=== PATIENT | male | born 1935 | race Native Hawaiian/Other Pacific Islander ===

== ENCOUNTER 2020-02-07 16:07 | Emergency (ER) | payer MEDICARE, OTHER, SELFPAY ==
--- NOTE | ~2020-02-07 | XR_ITS ---
XR hip RT 2V w AP pelvis 02/07/2020 17:22 Indication: Right hip pain radiating to the leg. Procedure: AP pelvis and 2 views right hip Comparison: Comparison to multiple prior studies sequentially, with oldest reviewed study dated 09/23 Findings: there is moderate-severe lower lumbar spondylosis with levoscoliosis. Pelvic rings are inta ct. There is a right hip arthroplasty with prosthesis well seated, position unchanged from prior stud ies. There is deformity of the proximal aspect of the right femur with trabecular thickening, unchang ed. There is extensive atherosclerosis. No acute fracture or traumatic malalignment.. There is mild o steoarthritis of the left hip. Pelvic rings are intact. Sacral foramen are symmetric. Impression: 1: No acute abnormality of the pelvis or right hip. 2: Moderate-severe lower lumbar spondylosis. 3: Stable appearance to right hip arthroplasty with trabecular thickening proximal aspect of the rig ht femur with periosteal reaction. Consider Paget's disease of the right femur. Reviewed, dictated and finalized at location A. Impression: 1: No acute abnormality of the pelvis or right hip. 2: Moderate-severe lower lumbar spondylosis. 3: Stable appearance to right hip arthroplasty with trabecular thickening prox imal aspect of the right femur with periosteal reaction. Consider Paget's disea se of the right femur.
[2020-02-07 16:17] VITALS: BP 150/82; PULSE 77; RESP 20; TEMP 36.9; O2SAT 100
[2020-02-07 16:24] VITALS: BP 150/82; PULSE 77; RESP 20; TEMP 36.9; O2SAT 100
--- NOTE | 2020-02-07 16:54 | ED.LOWEXIN ---
HPI - Extremity Injury (Lower) General Chief Complaint: Extremity Injury, Lower Stated Complaint: BACK/GROIN PAIN Time Seen by Provider: 02/07/20 16:45 History of Present Illness HPI Narrative: He has had severe pain of the right hip since this morning. The pain radiates into the lower back and flank. No thing makes the pain better or worse. He has chronic pain of the right hip, this is similar but worse. s/p right hip replacement. He has paget's diseaes of the right femur Related Data Allergies Allergy/AdvReac Type Severity Reaction Status Date / Time alendronate sodium Allergy Unknown Other Verified 02/10/20 09:54 sulfamethoxazole AdvReac Intermediate Itching Verified 02/10/20 09:54 [From Bactrim] trimethoprim [From Bactrim] AdvReac Intermediate Itching Verified 02/10/20 09:54 Review of Systems Review of Systems: All systems reviewed & are unremarkable except as noted in HPI and below Constitutional: Constitutional: Denies fever(s) Genitourinary: Genitourinary: Denies hematuria and Denies dysuria Musculoskeletal: Musculoskeletal: Reports back pain PMFSH Past Medical History Medical History Acute cystitis without hematuria Anxiety Arthritis Depression Dizziness Hearing loss HLD (hyperlipidemia) HTN (hypertension) Left hip pain JARED (obstructive sleep apnea) Rash Skin lesion Trochanteric bursitis, left hip Vision loss Surgical History Surgical History Status post carpal tunnel release Status post cataract extraction Status post right hip replacement Family History Family History Mother Family history of cardiovascular disease Sibling Family history of Parkinson's disease Family history of coronary artery disease Family history of malignant neoplasm of kidney Other Family history of arthritis Family history of malignant neoplasm Hypertension Social History Social History Social History: Smoking status: Former smoker Tobacco type: cigarettes Second hand tobacco smoke exposure: No Smoking end date: 06/16/1953 Alcohol intake: never Substance use: never Substance use type: does not use Gender identity (if verbalized by the patient): Male Exam Const: General: alert Nutritional Appearance: well nourished Orientation/consciousness: patient oriented x3 Other: obviously uncomfortable HENMT: Head: normal to inspection Resp: Effort & Inspection: normal respiratory effort Auscultation: clear to auscultation bilaterally Cardio: Rate: regular rate Rhythm: regular rhythm GI: GI Palp: Yes Soft to palpation and No Tenderness to palpation present (GI) : General: Yes no CVA tenderness Skin: General skin exam: normal color Neuro: General: patient oriented x3, moves all extremities and CN's II-XI intact bilaterally Speech: normal speech Extrem: Other: abnormal protrusion of right hip. Right quadriceps spasm Course Vital Signs Vital signs: Vital Signs Temperature 36.9 C 02/07/20 16:17 Pulse Rate 77 02/07/20 16:17 Respiratory Rate 20 02/07/20 16:17 Blood Pressure 150/82 H 02/07/20 16:17 Pulse Oximetry 100 02/07/20 16:17 Temperature 36.9 C 02/07/20 16:24 Pulse Rate 70 02/07/20 19:08 Respiratory Rate 15 02/07/20 19:08 Blood Pressure 180/87 H 02/07/20 19:08 Pulse Oximetry 97 02/07/20 19:08 MDM - Extremity Injury (Lower) MDM Narrative Medical decision making narrative: Pain improved with valium. Increase from his chronic pain is likely due to spasm. No acute injury. Medical Records Attestation: I reviewed the patient's medical records. Lab Data Labs: Lab Results 02/07/20 Range/Units 17:46 Urine Color Yellow (Yellow) Urine Appearance Clear (Clear) Urine pH 7.0 (5.0-9.0) U
[2020-02-07 18:29] LABS: Add Urine Microscopic? YES; Appearance Urine Clear (Clear); Bacteria Urine Trace /hpf; Bilirubin Urine Negative (Negative); Blood Urine Negative (Negative); Color Urine Yellow (Yellow); Glucose Urine UA Negative (Negative); Ketones Urine Negative (Negative); Leukocyte Esterase Ur 2+ LEU/UL (Negative); Mucus Urine Rare /lpf; Nitrate Urine Positive (Negative); Protein Urine Negative (Negative); Squamous Epithelial Cell Urine Rare /hpf (Few); Urobilinogen Urine Negative mg/dL (<2.0)
[2020-02-07] MEDS: CIPROFLOXACIN 500 MG TAB PO (19:05)
[2020-02-07 19:08] VITALS: BP 180/87; PULSE 70; RESP 15; O2SAT 97
== END 2020-02-07 19:13 | disposition home or self-care (01) ==
PROVIDERS: Emergency Provider Emergency Medicine; PCP Family Medicine
DX: M25.551 Pain in right hip (principal); N39.0 Urinary tract infection, site not specified; M19.90 Unspecified osteoarthritis, unspecified site; E78.5 Hyperlipidemia, unspecified; G47.33 Obstructive sleep apnea (adult) (pediatric); I10 Essential (primary) hypertension; F41.9 Anxiety disorder, unspecified; Z98.49 Cataract extraction status, unspecified eye; Z96.641 Presence of right artificial hip joint; Z87.891 Personal history of nicotine dependence; Z79.82 Long term (current) use of aspirin; M47.816 Spondylosis without myelopathy or radiculopathy, lumbar region
CPT/HCPCS: 73502; 81001; 96372; 99283; A9270; J3360

== ENCOUNTER 2020-05-15 16:55 | Outpatient (CLI) | payer MEDICARE, OTHER, SELFPAY ==
[2020-05-15 18:56] LABS: Erythrocyte Sedimentation Rate 13 mm/hr (0-20)
== END 2020-05-15 16:56 | disposition home or self-care (01) ==
LOC: ANHLAB 16:57
PROVIDERS: PCP Family Medicine; Visit Provider Family Medicine
DX: M79.10 Myalgia, unspecified site (principal)
CPT/HCPCS: 36415; 85652

== ENCOUNTER → 2020-06-19 15:16 | Outpatient (CLI) | payer MEDICARE, OTHER, SELFPAY ==
--- NOTE | ~2020-06-19 | MR_ITS ---
EXAMINATION: MR lumbar spine wo con EXAM DATE: 06/19/2020 16:29 INDICATION: M54.16 - Radiculopathy, lumbar region radiculopathy . TECHNIQUE: Multi-sequential, multiplanar MR images of the lumbar spine were obtained without contrast . Sagittal T1, T2, T2 fat saturation images. Axial T2 weighted images. There is no prior study for comparison. FINDINGS: Mild to moderate lumbar levoscoliosis. There is moderate chronic compression fracture of L1 . Mild to moderate diffuse loss of L2-L4 vertebral body heights and mild at L5. These are most likely chronic, no significant edema in these levels. The conus medullaris terminates at the L1/2 level and has normal signal intensity and morphology. There is 3 mm retrolisthesis L2 on L3. Moderate to fermin re disc disease at all lumbar levels. Several small vertebral body hemangiomas. Level by level evaluation: T12-L1: There is a mild diffuse disc bulge. Facet arthropathy: Mild. Neural foraminal stenosis: No stenosis. Central canal stenosis: No stenosis. L1-L2: There is a moderate diffuse disc bulge. Facet arthropathy: Mild to moderate. Neural foraminal stenosis: Moderate left, mild to moderate right. Central canal stenosis: Mild to moderate. L2-L3: There is a moderate to large diffuse disc bulge. Facet arthropathy: Moderate to severe. Neural foraminal stenosis: Moderate to severe right, moderate left. Central canal stenosis: Moderate to severe. L3-L4: There is a moderate diffuse disc bulge. Facet arthropathy: Moderate . Ligamentum flavum enlargement. Neural foraminal stenosis: Moderate bilateral. Central canal stenosis: Moderate. L4-L5: There is a moderate to large diffuse disc bulge. Facet arthropathy: Severe . Ligamentum flavum enlargement. Neural foraminal stenosis: Moderate to severe right, moderate left. Central canal stenosis: Moderate to severe. L5-S1: There is a mild to moderate diffuse disc bulge, right central protrusion Facet arthropathy: Mild to moderate. Neural foraminal stenosis: Moderate to severe left, mild to moderate right. Central canal stenosis: Moderate to severe, mass effect on traversing right S1 nerve root. IMPRESSION: 1. Advanced lumbar spondylosis. 2. Mild to moderate levoscoliosis. 3. Chronic compression fractures. Reviewed, dictated and finalized at location A. C THERAPY TEACHER
== END ==
PROVIDERS: PCP Family Medicine; Visit Provider Family Medicine
DX: M47.26 Other spondylosis with radiculopathy, lumbar region (principal)
CPT/HCPCS: 72148

== ENCOUNTER 2020-12-12 08:48 | Outpatient (CLI) | payer MEDICARE, OTHER, SELFPAY ==
--- NOTE | ~2020-12-12 | XR_ITS ---
EXAMINATION: XR lg joint inject/asp w image DATE: 12/12/2020 10:13 INDICATION: Left hip arthritis with chronic pain TECHNIQUE: A time-out was performed to verify the patient's name, date of , and procedure to b e performed. The procedure including the risks, benefits, and alternatives was discussed with the pat ient. Risks discussed included bleeding and infection. The patient understood the risks and agreed to proceed. The skin overlying the left hip joint was prepped and draped in usual sterile fashion. An esthetic was administered with 1% lidocaine subcutaneously. A 22 G needle was advanced under fluoros copic guidance into the joint. Injection of 1 mL of Omnipaque 240 confirmed intra-articular position of the needle. Subsequently, injectate consisting of 3 mL of a 2:1 mixture of 0.5% bupivacaine: 80 mg/mL Depo-Medrol for a total dose of 80 mg Depo-Medrol was instilled. Washout of contrast was seen c onfirming intra-articular administration. The needle was removed and the entry site was cleaned and d ressed. There were no immediate complications. Fluoroscopy exposure time was 0.1 minutes. The total number of images was 3. Total DAP was 0.938 mGycm^2 FINDINGS: Real-time fluoroscopy demonstrates the needle in the left hip joint. There is severe left h ip osteoarthritis. Patient's pain prior to procedure:07/26. Patient's pain following the procedure: . IMPRESSION: 1. Left hip joint injection of local anesthetic and steroid with no change in the patient's mild pres enting pain. Reviewed, dictated and finalized at location A. IMPRESSION: 1. Left hip joint injection of local anesthetic and steroid with no change in t he patient's mild presenting pain.
== END 2020-12-12 08:49 | disposition home or self-care (01) ==
LOC: ANHIMG 09:00
PROVIDERS: PCP Family Medicine; Visit Provider Nurse Practitioner Family
DX: M16.12 Unilateral primary osteoarthritis, left hip (principal)
CPT/HCPCS: 20610; 77002; J1040; Q9966

== ENCOUNTER 2021-01-26 11:34 | Outpatient (CLI) | payer MEDICARE, OTHER, SELFPAY ==
--- NOTE | ~2021-01-26 | XR_ITS ---
EXAMINATION: XR knee LT 3V DATE: 01/26/2021 11:56 INDICATION: Osteitis deformans of unspecified bone. Left knee joint clicking. TECHNIQUE: 3 views of left knee were obtained. COMPARISON: None. FINDINGS: Bone alignment is normal. No fracture. There is mild tricompartment osteoarthritis characte rized by tiny marginal osteophytes. No knee joint effusion. IMPRESSION: 1. Mild left knee osteoarthritis. Reviewed, dictated and finalized at location A.
== END 2021-01-26 11:35 | disposition home or self-care (01) ==
LOC: ANHIMG 11:41
PROVIDERS: PCP Family Medicine; Visit Provider Physician Assistant
DX: M88.9 Osteitis deformans of unspecified bone (principal); M23.8X9 Other internal derangements of unspecified knee; M17.12 Unilateral primary osteoarthritis, left knee
CPT/HCPCS: 73562

== ENCOUNTER 2021-05-17 09:01 | Emergency (ER) | payer MEDICARE, OTHER, SELFPAY ==
--- NOTE | ~2021-05-17 | XR_ITS ---
EXAMINATION: XR finger 1st RT min 2V EXAM DATE: 05/17/2021 09:30 INDICATION: Caught distal end rt 1st finger in car door yesterday. TECHNIQUE: Right thumb frontal, lateral and oblique projections obtained and reviewed. There is no prior study for comparison. FINDINGS: There is moderate right 1st interphalangeal primary osteoarthritis. There are no acute frac tures or dislocations identified. There is no subcutaneous gas. The soft tissue is unremarkable. There are 2 punctate foreign bodies which could be on the skin or in the tissues of the phalanx IMPRESSION: No acute osseous findings. Reviewed, dictated and finalized at location A. HANDISING DIRECTOR IMPRESSION: No acute osseous findings.
[2021-05-17 09:18] VITALS: BP 143/97; PULSE 68; RESP 16; TEMP 36.3; O2SAT 97
--- NOTE | 2021-05-17 09:27 | ED.UPPEXIN ---
HPI - Extremity Injury (Upper) General Chief Complaint: Wound/Laceration Stated Complaint: Thumb Nail Time Seen by Provider: 05/17/21 09:28 Source: patient, family, RN notes reviewed and old records reviewed Mode of arrival: ambulatory Limitations: no limitations History of Present Illness HPI narrative: 85-year-old male presents to the [facility] with complaints of smashing his right thumb in the car door last night. Has been icing and took Tylenol. States he has been soaking it also and peroxide. Has a history of osteoporosis, high blood pressure, high cholesterol, depression and anxiety along with acid reflux. Has sensation at the tip. Bruising noted to the nail. Related Data Allergies Allergy/AdvReac Type Severity Reaction Status Date / Time alendronate sodium Allergy Unknown Other Verified 05/17/21 14:39 sulfamethoxazole AdvReac Intermediate Itching Verified 05/17/21 14:39 [From Bactrim] trimethoprim [From Bactrim] AdvReac Intermediate Itching Verified 05/17/21 14:39 Review of Systems Review of Systems: All systems reviewed & are unremarkable except as noted in HPI and below Constitutional: Constitutional: Reports no additional constitutional complaints, Denies chills and Denies fever(s) Eyes: Eyes: Reports no additional eye complaints ENT: Reports system reviewed and no additional complaints, except as documented Cardiovascular: Cardiovascular: Reports no additional cardiovascular complaints Respiratory: Respiratory: Reports no additional respiratory complaints Musculoskeletal: Musculoskeletal: Reports no additional musculoskeletal complaints, Denies arthralgias and Denies joint swelling Integumentary/Breasts: Skin/Breast: Reports as per HPI and Denies rash Comments: Bruising under right thumbnail Neurologic: Reports system reviewed and no additional complaints, except as documented Psychiatric: Psychiatric: Reports no additional psychiatric complaints Allergic/Immunologic: Allergic/Immunologic: Reports no additional allergic/immunologic complaints PMFSH Past Medical History Medical History Acute cystitis without hematuria Anxiety Arthritis Degenerative joint disease (DJD) of hip Depression Dizziness DJD (degenerative joint disease), lumbar Hearing loss HLD (hyperlipidemia) HTN (hypertension) Left hip pain Left knee DJD Lumbar radiculopathy, chronic JARED (obstructive sleep apnea) Paget disease of bone Rash Skin lesion Trochanteric bursitis, left hip Vision loss Surgical History Surgical History Status post carpal tunnel release Status post cataract extraction Status post right hip replacement Family History Family History Mother Family history of cardiovascular disease Sibling Family history of Parkinson's disease Family history of coronary artery disease Family history of malignant neoplasm of kidney Other Family history of arthritis Family history of malignant neoplasm Hypertension Social History Social History Social History: Tobacco type: cigarettes Second hand tobacco smoke exposure: No Smoking end date: 06/16/1953 Alcohol intake: never Substance use: never Substance use type: does not use Gender identity (if verbalized by the patient): Male Sexual Orientation (if Verbalized by the Patient): Straight or Heterosexual Comments At the time of my signature, I reviewed and agree with the nursing past medical, surgical, social, and family history. There is no relevant family history pertinent to the patient complaint. Exam Const: General: healthy appearing, no acute distress and alert Nutritional Appearance: well nourished Orientation/consciousness: patient oriented x3 Limitations: no limitations HENMT: Head: normal to inspection Eyes: Pupils: Equ
== END 2021-05-17 10:09 | disposition home or self-care (01) ==
PROVIDERS: Emergency Provider Nurse Practitioner; PCP Family Medicine
DX: S60.111A Contusion of right thumb with damage to nail, initial encounter (principal); I10 Essential (primary) hypertension; E78.5 Hyperlipidemia, unspecified; Z87.891 Personal history of nicotine dependence; W23.0XXA Caught, crushed, jammed, or pinched between moving objects, initial encounter
CPT/HCPCS: 11740; 73140; 99213; G0463

== ENCOUNTER 2021-11-09 11:36 | Emergency (ER) | payer MEDICARE, OTHER, SELFPAY ==
[2021-11-09 11:50] VITALS: BP 183/89; PULSE 64; RESP 16; TEMP 36.9; O2SAT 100
[2021-11-09] MEDS: TETANUS,DIPHTHERIA,AC PERTUSSIS ADULT (0.5 ML) BOOSTRIX IM (12:20)
--- NOTE | 2021-11-09 12:32 | PC.NURSE ---
manager urgent care in to do sutures.
--- NOTE | 2021-11-09 12:42 | ED.WOUNDLAC ---
HPI - Wound/Laceration General Chief Complaint: Wound/Laceration Stated Complaint: cut right elbow Time Seen by Provider: 11/09/21 12:00 Source: patient Mode of arrival: ambulatory Limitations: no limitations History of Present Illness HPI narrative: 86-year-old male presents with with complaint of laceration to right elbow. States that he was sitting on a stool cleaning his garage and he dropped something. Bent over to pick it up and he fell off the stool. Hit right elbow on leg of table saw. Arrived with towel wrapped around right elbow. Moderate amount of bleeding noted. Range of motion and distal neurovascularly intact to right upper extremity. Denies hitting head. No LOC. All systems reviewed and negative except as noted above. Related Data Allergies Allergy/AdvReac Type Severity Reaction Status Date / Time alendronate sodium Allergy Unknown Other Verified 08/03/21 10:42 sulfamethoxazole AdvReac Intermediate Itching Verified 08/03/21 10:42 [From Bactrim] trimethoprim [From Bactrim] AdvReac Intermediate Itching Verified 08/03/21 10:42 Review of Systems Review of Systems: CONSTITUTIONAL: Denies fever, chills, or sweats. EYES: Denies visual changes, redness, or discharge. ENT: Denies rhinorrhea, congestion, sore throat, or otalgia. CARDIOVASCULAR: Denies chest pain, palpitations, or edema. RESPIRATORY: Denies cough or dyspnea. GASTROINTESTINAL: Denies abdominal pain, nausea, vomiting, or diarrhea. GENITOURINARY: Denies dysuria or hematuria. SKIN: Denies rash or itching. Reports laceration right elbow. MUSCULOSKELETAL: Denies back pain, joint pain, or myalgia. NEUROLOGIC: Denies headache, numbness, or weakness. PSYCHIATRIC: Denies anxiety or depression. All other systems reviewed are negative, except as documented in HPI. [facility] Past Medical History Medical History Acute cystitis without hematuria Anxiety Arthritis Degenerative joint disease (DJD) of hip Depression Dizziness DJD (degenerative joint disease), lumbar Hearing loss HLD (hyperlipidemia) HTN (hypertension) Left hip pain Left knee DJD Lumbar radiculopathy, chronic JARED (obstructive sleep apnea) Paget disease of bone Rash Skin lesion Trochanteric bursitis, left hip Vision loss Surgical History Surgical History Status post carpal tunnel release Status post cataract extraction Status post right hip replacement Family History Family History Mother Family history of cardiovascular disease Sibling Family history of Parkinson's disease Family history of coronary artery disease Family history of malignant neoplasm of kidney Other Family history of arthritis Family history of malignant neoplasm Hypertension Social History Social History Social History: Tobacco type: cigarettes Second hand tobacco smoke exposure: No Smoking end date: 06/16/1953 Alcohol intake: never Substance use: never Substance use type: does not use Gender identity (if verbalized by the patient): Male Sexual Orientation (if Verbalized by the Patient): Straight or Heterosexual Comments At time of signature, agree with nursing past medical, surgical, social and family history. There is no relevant family history pertinent to the presenting complaint. Exam Narrative: GENERAL: This is a well-nourished, well-developed patient, in no apparent distress. HEAD: normocephalic, atraumatic. EYES: PERRL. Sclera clear/white. Vision is grossly intact. EARS: External ears normal NOSE: External nose normal NECK: Neck supple, non-tender without lymphadenopathy, masses or thyromegaly. CARDIOVASCULAR: Regular rate and rhythm without murmurs, gallops, or rubs. RESPIRATORY: Clear to auscultation. Breath sounds equal bilaterally. No wheezes
== END 2021-11-09 12:47 | disposition home or self-care (01) ==
PROVIDERS: Emergency Provider Nurse Practitioner Family
DX: S51.011A Laceration without foreign body of right elbow, initial encounter (principal); T14.8XXA Other injury of unspecified body region, initial encounter; W27.0XXA Contact with workbench tool, initial encounter; E78.5 Hyperlipidemia, unspecified; I10 Essential (primary) hypertension; Z87.891 Personal history of nicotine dependence
CPT/HCPCS: 12002; 90471; 90715; 99212; G0463

== ENCOUNTER 2022-02-01 09:30 | Outpatient (CLI) | payer MEDICARE, OTHER, SELFPAY ==
--- NOTE | 2022-02-01 09:49 | ECG_ITS ---
Measurements Intervals [place] Rate: 65 P: 71 TN: 144 QRS: 48 QRSD: 90 T: 39 QT: 398 QTc: 414 Interpretive Statements BASELINE ARTIFACT/REDUCED DATA QUALITY SINUS RHYTHM GROSSLY NORMAL ECG NO PREVIOUS ECG AVAILABLE FOR COMPARISON Electronically Signed On 02-01-2022 12:04:02 CDT by Noé Villanueva M.D.
== END 2022-02-01 09:31 | disposition home or self-care (01) ==
LOC: ANHSURGERY 09:36
PROVIDERS: PCP Family Medicine; Visit Provider Urology
DX: Z01.818 Encounter for other preprocedural examination (principal); I10 Essential (primary) hypertension
CPT/HCPCS: 93005

== ENCOUNTER 2022-02-07 00:39 | Day surgery (SDC) | payer MEDICARE, OTHER, SELFPAY ==
--- NOTE | 2022-01-31 15:37 | PC.NURSE ---
Report to the Outpatient Waiting Room, entrance under the green pavilion located off [facility], at time __0815 on date __02/07/22 . OR Time: _101 . - You and your visitor will be asked to self-screen and do not enter if you have any COVID symptoms. - Only one visitor and NO children visitors are allowed at this time. - The patient visitor is requested to leave or wait in car when not with patient due to restrictions. - A mask is required within the hospital. Patients may have clear liquids (water, carbonated beverages, clear teas, apple juice) until 3 hours prior to surgery with a maximum of 20 ounces. - No food from midnight until time of surgery - Infants may have breast milk until 4 hours before surgery, formula 6 hours prior to surgery. - Children will be allowed to drink immediately following surgery. If applicable, please bring a bottle or sippy cup to assist with drinking. Juice, water, soda, and popsicles are readily available. For infants on formula, please bring formula the day of surgery. Pacifiers are allowed. Take the following medications with a SIP of water the morning of surgery: ___BUPROPION AND PAROXETINE Medications to discontinue per physician _PT STATES __ASPIRIN 7 DAYS PRE OP PER DR DURHAM_.ALL VITAMINS AND SUPPLEMENTS 3 DAYS PRE OP Date to take last dose__ASPIRINS 01/30/22 ___/ VITAMINS 02/03/22 Please no make-up, nail [place], hairspray, perfume, deodorant, or body powder the day of surgery. No jewelry (including any body piercings) or valuables the day of surgery, leave them at home. Please take a shower or bath the night before, or the morning of, surgery with an antibacterial soap. Wear comfortable, loose fitting clothing. Children are encouraged to wear pajamas. - Jewelry must be removed prior to entering the operating room. Rings and piercings that are not removed may be cut off. - The hospital will not accept responsibility for valuables. - Please leave all valuables, including medications, at home the day of surgery. If you are going home after surgery, a licensed show horse driver must drive you home. - NO public transportation without another adult. - We recommend that an adult stay with you for 24 hours following discharge. - We also recommend that you do not drive, make important decision, drink alcoholic beverages, or take any drugs that were not prescribed by your health care provider for at least 24 hours after your discharge time. For Pediatric surgeries, we recommend two adults accompany the child home (only one inside the building at this time). Follow any additional instructions given to you from your surgeon. If you or anyone in your household have experienced Covid symptoms in the past week, please notify your surgeon or the nurse liaison at the phone number below for possible testing. Telephone instructions given to _PATIENT AND and asked if any additional questions and then verbalized understanding. Patient advised to call surgeon office or pre surgery nurse liaison [phone] if any additional questions.
[2022-01-31 15:43] VITALS: BMI 25.0
--- NOTE | 2022-02-04 07:29 | PM.IMHP ---
H&P: HPI History of Present Illness Date/Time: 02/04/22 07:29 Chief Complaint: Difficulty urinating Narrative: a 6-year-old patient has been a patient of our since March 2018. He has progressive obstructive and irritable voiding symptoms. After initial response to finasteride his symptoms have since regressed. 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 After discussion of therapeutic options including additional medication, minimally invasive procedures for BPH and TURP he has elected for the latter. He is aware of the risk of this including, but not limited to, adverse cardiopulmonary events, postoperative hematuria, persistent irritable and or obstructive voiding symptoms, urinary incontinence. Review of Systems Cardiovascular: Cardiovascular: Denies chest pain, Denies lightheadedness, Denies palpitations and Denies dyspnea Respiratory: Respiratory: Denies dyspnea Gastrointestinal: Gastrointestinal: Denies diarrhea, Denies nausea and Denies vomiting Genitourinary: Genitourinary: Denies hematuria and Denies dysuria Endocrine: Endocrine: Denies palpitations [facility] Past Medical History Medical History Acute cystitis without hematuria Anxiety Arthritis Degenerative joint disease (DJD) of hip Depression Dizziness DJD (degenerative joint disease), lumbar Hearing loss HLD (hyperlipidemia) HTN (hypertension) Left hip pain Left knee DJD Lumbar radiculopathy, chronic JARED (obstructive sleep apnea) Paget disease of bone Rash Skin lesion Trochanteric bursitis, left hip Vision loss Surgical History Surgical History Status post carpal tunnel release Status post cataract extraction Status post right hip replacement Family History Family History Mother Family history of cardiovascular disease Sibling Family history of Parkinson's disease Family history of coronary artery disease Family history of malignant neoplasm of kidney Other Family history of arthritis Family history of malignant neoplasm Hypertension Social History Social History Social History: Smoking status: Never smoker Tobacco type: cigarettes Second hand tobacco smoke exposure: No Smoking end date: 06/16/1953 Alcohol intake: never Substance use: never Substance use type: does not use Gender identity (if verbalized by the patient): Male Sexual Orientation (if Verbalized by the Patient): Straight or Heterosexual Spiritual care concerns: No Meds Home Medications and Allergies Home Medications Medication Instructions Recorded Confirmed Type alendronate 70 mg tablet (Fosamax) 70 mg PO WEEKLY #12 tabs 05/31/21 01/31/22 Rx clonazepam 0.5 mg tablet 0.5 mg PO .qhs #90 tabs 12/24/21 01/31/22 Rx aspirin 81 mg tablet,delayed 81 mg PO DAILY #90 tabs 12/25/21 01/31/22 Rx release atenolol 25 mg tablet 25 mg PO DAILY #90 tabs 12/25/21 01/31/22 Rx atorvastatin 40 mg tablet 40 mg PO DAILY #90 tabs 12/25/21 01/31/22 Rx bupropion HCl 150 mg 24 hr tablet, 150 mg PO QAM #90 tabs 12/25/21 01/31/22 Rx extended release (Wellbutrin XL) omeprazole 20 mg capsule,delayed 20 mg PO DAILY #90 caps 12/25/21 01/31/22 Rx release paroxetine HCl 40 mg tablet 40 mg PO DAILY #90 tabs 12/25/21 01/31/22 Rx cranberry fruit 450 mg tablet 450 mg PO DAILY 01/31/22 01/31/22 History (cranberry) docusate sodium 50 mg capsule 50 mg PO DAILY 01/31/22 01/31/22 History (Stool Softener) multivitamin 1 tablet PO DAILY 01/31/22 01/31/22 History polyethylene glycol 3350 17 gram 17 g PO DAILY 01/31/22 01/31/22 History oral powder packet (Miralax) Allergies Allergy/AdvReac Type Severity Reaction Status Date / Ti
--- NOTE | 2022-02-06 13:09 | WPDANESEPPF ---
Anes - Initial Pre Proc Eval Procedure: Operation Date: 02/07/22 09:30 Proposed Procedures p Trans Urethral Resection Prostate - Joseph David MD Date/Time: 02/06/22 13:09 Surgeon: Joseph David MD Pre Op Diagnosis: BPH Patient Data Age: 86 Gender: M Height: 1.68 m Weight: 70.35 kg Allergies Allergy/AdvReac Type Severity Reaction Status Date / Time alendronate sodium Allergy Unknown Other Verified 01/31/22 15:13 sulfamethoxazole AdvReac Intermediate Itching/PALMER Verified 01/31/22 15:13 [From Bactrim] H trimethoprim [From Bactrim] AdvReac Intermediate Itching/PALMER Verified 01/31/22 15:13 H Home Medications Medication Instructions Recorded Confirmed Type alendronate 70 mg tablet (Fosamax) 70 mg PO WEEKLY #12 tabs 05/31/21 01/31/22 Rx clonazepam 0.5 mg tablet 0.5 mg PO .qhs #90 tabs 12/24/21 01/31/22 Rx aspirin 81 mg tablet,delayed 81 mg PO DAILY #90 tabs 12/25/21 01/31/22 Rx release atenolol 25 mg tablet 25 mg PO DAILY #90 tabs 12/25/21 01/31/22 Rx atorvastatin 40 mg tablet 40 mg PO DAILY #90 tabs 12/25/21 01/31/22 Rx bupropion HCl 150 mg 24 hr tablet, 150 mg PO QAM #90 tabs 12/25/21 01/31/22 Rx extended release (Wellbutrin XL) omeprazole 20 mg capsule,delayed 20 mg PO DAILY #90 caps 12/25/21 01/31/22 Rx release paroxetine HCl 40 mg tablet 40 mg PO DAILY #90 tabs 12/25/21 01/31/22 Rx cranberry fruit 450 mg tablet 450 mg PO DAILY 01/31/22 01/31/22 History (cranberry) docusate sodium 50 mg capsule 50 mg PO DAILY 01/31/22 01/31/22 History (Stool Softener) multivitamin 1 tablet PO DAILY 01/31/22 01/31/22 History polyethylene glycol 3350 17 gram 17 g PO DAILY 01/31/22 01/31/22 History oral powder packet (Miralax) Patient hx anesthesia problems: none Family hx anesthesia problems: none Results Review: All pre-operative results and documents have been reviewed as part of the pre-operative evaluation. [facility] Past Medical History Medical History (Updated 02/06/22 @ 13:10 by Mahendra Cotto MD) Acute cystitis without hematuria Anxiety Arthritis CAD (coronary artery disease) Degenerative joint disease (DJD) of hip Depression Dizziness DJD (degenerative joint disease), lumbar Hearing loss HLD (hyperlipidemia) HTN (hypertension) Hx of myocardial infarction Left hip pain Left knee DJD Lumbar radiculopathy, chronic JARED (obstructive sleep apnea) Paget disease of bone Rash Skin lesion Trochanteric bursitis, left hip Vision loss Surgical History Surgical History Status post carpal tunnel release Status post cataract extraction Status post right hip replacement Family History Family History Mother Family history of cardiovascular disease Sibling Family history of Parkinson's disease Family history of coronary artery disease Family history of malignant neoplasm of kidney Other Family history of arthritis Family history of malignant neoplasm Hypertension Social History Social History Social History: Smoking status: Never smoker Tobacco type: cigarettes Second hand tobacco smoke exposure: No Smoking end date: 06/16/1953 Alcohol intake: never Substance use: never Substance use type: does not use Living arrangements: with family Gender identity (if verbalized by the patient): Male Sexual Orientation (if Verbalized by the Patient): Straight or Heterosexual Spiritual care concerns: No Anes - Eval Final PreProcedure Day of Procedure 02/06/22 13:09 Patient weight: normal Heart: regular rate and rhythm Lungs: clear to auscultation and normal air movement Airway: Mallampati scale class II Neurological: alert and oriented Last oral intake: >/= 8 hours ASA classification: III Emergent: no Anesthetic plan: proceed Anesthesia type and monitoring: general
[2022-02-07] VITALS (18 sets, daily range): BP systolic 118–177; BP diastolic 55–83; PULSE 51–66; RESP 12–16; TEMP 36.1–36.7; O2SAT 93–100
--- NOTE | 2022-02-07 06:49 | WPDHPUPDATE1 ---
History and Physical Update Update Date/Time: 02/07/22 06:49 History and Physical has been reviewed, including an updated exam of the patient. There are NO changes in the patient's condition. Risks, benefits, and alternatives have been discussed and questions answered. Patient agrees to proceed with procedure.
[2022-02-07] MEDS: LACTATED RINGERS 1,000 ML 30 ML IV CONT ×2 (08:29→10:10)
[2022-02-07] MEDS: ceFAZolin 2 GM/D5W 50 ML 2 GM/50 ML BAG IVPB (09:25)
--- NOTE | 2022-02-07 10:07 | P.OP_ITS ---
Procedure Note - Detailed Date of Procedure 02/07/22 Pre-op Diagnosis BPH Post-op Diagnosis Same Procedure Performed TURP Surgeon Joseph David MD Description of Procedure The patient was brought to the operative suite where he is prepped and draped in routine sterile fashion while in the dorsal lithotomy position after the administration of systemic sedation. A 27 [place]ese resectoscope sheath was placed into his bladder. He had no urethral strictures. The patient had trilobar hyperplasia with a moderate median lobe. The bladder itself was endoscopically normal, showing no mucosal hyperemia, intravesical neoplasm or foreign bodies. There was a single, orthotopic ureteral orifice bilaterally. These orifices were identified and preserved throughout the remainder of the procedure. Attention was first turned to resection of the median lobe. This resection was undertaken from the bladder neck to the verumontanum and carried out until the transverse fibers of the bladder neck were identified. The left lateral lobe was then resected starting at the 6 o'clock position, working counter clockwise to the 12 o'clock position. Again, resection was carried out from the bladder neck to the verumontanum until the capsular fibers of the prostate were identified. The right lateral lobe was resected in a similar fashion starting at the 6 o'clock position working clockwise to the 12 o'clock position and carried out until the capsular fibers of the prostate were identified. Apical tissue was then circumferentially resected. All chips were evacuated from the bladder using an [employer] evacuator. Hemostasis was obtained with electric cautery. The ureteral orifices were again inspected and found to be without injury. Estimated blood loss throughout this procedure was []cc. The patient was taken to recovery room having tolerated this well. Estimated Blood Loss 50 Drains Yes Packing No Pathology Yes Complications No immediate complications Condition Stable
--- NOTE | 2022-02-07 13:20 | ADMGEN ---
This patient, Power Ayers, was admitted to 2 Medical Room 242-. Patient/family oriented to hospital policies and general routines including ID bracelet, bed and alarms, visiting hours, pain management, procedures, bathroom and other care routines, personal items, smoking policy, room service/diet, and visiting hours. Information on how to activate the Rapid Response Team has been discussed. Patient/Family are encouraged to report perceived risks to care and to ask questions if they do not understand what they are told or what they should do.
[2022-02-07] MEDS: DOCUSATE SODIUM 100 MG CAPSULE PO (17:07)
[2022-02-07] MEDS: clonazePAM (*CRX) 0.5 MG TABLET PO (21:02)
[2022-02-08] VITALS (8 sets, daily range): BP systolic 100–148; BP diastolic 52–75; PULSE 65–77; RESP 16–17; TEMP 36.6–36.7; O2SAT 94–99
[2022-02-08 04:49] LABS: Hematocrit 38.6 % (42.0-52.0); Hemoglobin 12.7 g/dL (14.0-18.0)
[2022-02-08 05:03] LABS: Anion Gap 9 mmol/L (8-16); Blood Urea Nitrogen 13 mg/dL (9-20); Calcium 8.1 mg/dL (8.4-10.2); Carbon Dioxide 26 mmol/L (22-30); Chloride 100 mmol/L (98-107); Estimated CRCL calculation 46 ml/min; Estimated Glomerular Filt Rate > 60; Glucose 92 mg/dL (65-110); Sodium 135 mmol/L (137-145)
--- NOTE | 2022-02-08 07:36 | WPDUROPN2 ---
Progress Note: A&P Assessment and Plan (1) BPH loc w urin obs/LUTS: Code(s): N40.1 - Benign prostatic hyperplasia with lower urinary tract symptoms Status: Acute Plan Doing well POD #1 s/p TURP Stop CBI early this morning / voiding trial later this morning if urine remains clear. Likely home this afternoon. Subjective Subjective Date/Time Seen: 02/08/22 07:36 No significant complaints - uncomfortable bed Review of Systems Cardiovascular: Cardiovascular: Denies chest pain, Denies lightheadedness, Denies palpitations and Denies dyspnea Respiratory: Respiratory: Denies dyspnea Gastrointestinal: Gastrointestinal: Denies diarrhea, Denies nausea and Denies vomiting Genitourinary: Genitourinary: Denies hematuria and Denies dysuria Endocrine: Endocrine: Denies palpitations Exam Const: General: no acute distress Resp: Effort & Inspection: normal respiratory effort GI: Inspection: non-distended GI Palp: No abdominal tenderness and No Guarding due to palpation present (GI) Auscultation: normal bowel sounds Objective Data Vital Signs Vital Signs: Vital Signs - 24 hr 02/07/22 08:26 02/07/22 10:10 02/07/22 10:25 Temperature 97.5 F L 97.0 F L Pulse Rate 62 56 L 57 L Respiratory Rate 16 12 14 Blood Pressure 147/56 H 124/55 L 147/72 H Pulse Oximetry 99 98 100 Oxygen Delivery Room Air Simple Face Mask Room Air Oxygen Flow Rate 6 02/07/22 10:40 02/07/22 10:55 02/07/22 11:10 Temperature Pulse Rate 58 L 54 L 55 L Respiratory Rate 14 14 14 Blood Pressure 157/83 H 167/66 H 177/68 H Pulse Oximetry 100 100 98 Oxygen Delivery Room Air Room Air Room Air Oxygen Flow Rate 02/07/22 11:25 02/07/22 11:40 02/07/22 11:55 Temperature Pulse Rate 55 L 54 L 51 L Respiratory Rate 13 13 14 Blood Pressure 159/73 H 170/72 H 162/61 H Pulse Oximetry 99 99 98 Oxygen Delivery Room Air Room Air Room Air Oxygen Flow Rate 02/07/22 12:10 02/07/22 12:27 02/07/22 12:40 Temperature Pulse Rate 56 L 53 L 53 L Respiratory Rate 13 12 14 Blood Pressure 164/69 H 159/72 H 177/63 H Pulse Oximetry 95 100 98 Oxygen Delivery Room Air Room Air Room Air Oxygen Flow Rate 02/07/22 12:55 02/07/22 13:45 02/07/22 13:30 Temperature 97.9 F 97.6 F Pulse Rate 55 L 60 60 Respiratory Rate 14 15 15 Blood Pressure 161/70 H 168/60 H 170/71 H Pulse Oximetry 97 99 93 Oxygen Delivery Room Air Oxygen Flow Rate 02/07/22 14:15 02/07/22 15:15 02/07/22 19:25 Temperature 97.6 F 97.6 F Pulse Rate 60 60 Respiratory Rate 15 15 Blood Pressure 153/66 H 148/72 H Pulse Oximetry 100 100 Oxygen Delivery Room Air Oxygen Flow Rate 02/07/22 19:31 02/08/22 01:46 02/08/22 05:02 Temperature 98.0 F 97.8 F 98.0 F Pulse Rate 66 77 75 Respiratory Rate 16 16 16 Blood Pressure 118/70 121/64 148/75 H Pulse Oximetry 98 96 97 Oxygen Delivery Oxygen Flow Rate 02/08/22 05:24 Temperature Pulse Rate Respiratory Rate Blood Pressure 117/68 Pulse Oximetry Oxygen Delivery Oxygen Flow Rate Intake/Output Intake/Output: Intake & Output 02/05/22 02/06/22 02/07/22 02/08/22 23:59 23:59 23:59 23:59 Intake Total 11368 450 Output Total 98562 550 Balance -6160 -100 Meds/Results Medications: Active Medications Generic Name Dose Route Start Last Admin Trade Name Freq PRN Reason Stop Dose Admin Hydrocodone Bitart/Acetaminophen 1 tab 02/07/22 13:07 Hydrocodone/Acetaminophen (*Crx) 5-325 Mg Tablet PO Q4H PRN Pain Rated 1-6 Alendronate Sodium 70 mg 02/11/22 06:30 Alendronate Sodium 70 Mg Tablet PO [id number]@0630 QUOC Atenolol 25 mg 02/08/22 09:00 Atenolol 25 Mg Tablet PO DAILY QUOC Atorvastatin Calcium 40 mg 02/08/22 09:00 Atorvastatin 40 Mg Tablet PO DAILY QUOC Bupropion HCl 150 mg 02/08/22 09:00 Bupropion Hcl Xl (24 Hr) 150 Mg Tabcr PO QAM QUOC Cephalexin HCl 500 mg 02/08/22 09:00 Cephalexin 500 Mg Capsule PO
--- NOTE | 2022-02-08 08:32 | WPDANESPN ---
Anes - Prog Note Post-Op Date/Time: 02/08/22 08:32 Cardiovascular status: normal Respiratory status: normal Airway patency: baseline Mental status: baseline Post-Op hydration status: normal Vital Signs: Last Vital Signs Temp 36.7 C 02/08/22 05:02 Pulse 75 02/08/22 05:02 Resp 16 02/08/22 05:02 BP 117/68 02/08/22 05:24 Pulse Ox 97 02/08/22 05:02 O2 Del Method Room Air 02/07/22 19:25 O2 Flow Rate 6 02/07/22 10:10 Pain Score (VAS): 06/25 I/O: Intake & Output 02/07/22 02/08/22 02/08/22 23:59 07:59 15:59 Intake Total 590 450 Output Total 1100 550 Balance -510 -100 Laboratory Tests 02/08/22 04:18 02/08/22 04:18 02/08/22 02/08/22 04:18 04:18 Hgb 12.7 L Hct 38.6 L Sodium 135 L Potassium 4.0 Chloride 100 Carbon Dioxide 26 Anion Gap 9 BUN 13 Creatinine 0.90 Estim Creat Clear Calc 46 Estimated GFR > 60 Glucose 92 Calcium 8.1 L Post-procedural complaints: none Patient Feedback: Patient satisfied with anesthetic care.
[2022-02-08] MEDS: PANTOPRAZOLE 40 MG TABLET PO (08:47)
[2022-02-08] MEDS: buPROPion HCL XL (24 HR) 150 MG TABCR PO (08:47)
[2022-02-08] MEDS: PARoxetine 20 MG TABLET 40 MG PO (08:47)
[2022-02-08] MEDS: ATORVASTATIN 40 MG TABLET PO (08:47)
[2022-02-08] MEDS: DOCUSATE SODIUM 100 MG CAPSULE PO (08:47)
[2022-02-08] MEDS: atenoloL 25 MG TABLET PO (08:47)
[2022-02-08] MEDS: CEPHALEXIN 500 MG CAPSULE PO ×2 (08:47→12:29)
[2022-02-08] MEDS: polyethylene glycoL 3350 17 GM POWD.PACK PO (08:48)
--- NOTE | 2022-02-08 13:41 | P.DS_ITS ---
DS: Admitting Diagnosis Discharge Date 02/08/2022 Admitting Diagnosis BPH DS: Summary Hospital Course Hospital Course: This patient with longstanding prostatism refractory for medical management was admitted on the morning of his planned TURP. The procedure was undertaken on that same day in an uneventful fashion. His post-operative course was, likewise, uneventful. On the evening of the procedure he was tolerating a diet. On POD#1 his urine was clear on CBI. The urine remained clear and, therefore, the catheter was removed late morning. The patient was observed for several otto rs, until he demonstrated he could void effectively without significant hematuria. He was discharged with careful instruction on limiting physical activity x2 weeks and plans to f/ in 2-3 weeks. At discharge he was comfortable and tolerating a diet. Time Spent with Patient Time attestation: Total time spent providing and/or coordinating discharge services: DS: Data Data Completed and Pending Pending studies at discharge: Pending at discharge 02/07/22 10:01 Surgical [PTH] Routine Labs on day of discharge: Labs from last 24 hours 02/08/22 02/08/22 04:18 04:18 Hgb 12.7 L Hct 38.6 L Sodium 135 L Potassium 4.0 Chloride 100 Carbon Dioxide 26 Anion Gap 9 BUN 13 Creatinine 0.90 Estim Creat Clear Calc 46 Estimated GFR > 60 Glucose 92 Calcium 8.1 L Discharge Plan Discharge Patient Disposition: Home, Self-Care Discharge Instructions: 1) Activity: No lifting/straining >15lbs. x2 weeks. 2) Diet: Resume normal pre-admission diet. 3) Follow-up: 2-3 weeks / call office for appointment ([phone]). Stand Alone Forms: General Discharge Instructions Discharge Orders: Discharge Order (Routine); Ordered 02/08/22 Ordered By: Joseph David Discharge Medications: New cefdinir 300 mg capsule 300 mg PO Q12H Qty: 6 0RF hydrocodone-acetaminophen 5-325 mg tablet 1 - 2 tablet PO Q6H PRN (Reason: pain) Qty: 20 0RF docusate sodium [Colace] 100 mg capsule 100 mg PO DAILY Qty: 30 0RF Continued multivitamin Tablet 1 tablet PO DAILY Stool Softener 50 mg Capsule 50 mg PO DAILY polyethylene glycol 3350 [Miralax] 17 gram Powder In Packet 17 g PO DAILY cranberry 450 mg Tablet 450 mg PO DAILY Rx Instructions: administer with a meal cefdinir 300 mg capsule 300 mg PO BID clonazepam 0.5 mg tablet 0.5 mg PO .qhs Qty: 90 0RF atenolol 25 mg tablet 25 mg PO DAILY Qty: 90 3RF Label Comments: TAKES AT HS atorvastatin 40 mg tablet 40 mg PO DAILY Qty: 90 3RF bupropion HCl [Wellbutrin XL] 150 mg tablet extended release 24 hr 150 mg PO QAM Qty: 90 3RF omeprazole 20 mg capsule,delayed release(DR/EC) 20 mg PO DAILY Qty: 90 3RF paroxetine HCl 40 mg tablet 40 mg PO DAILY Qty: 90 3RF alendronate [Fosamax] 70 mg tablet 70 mg PO WEEKLY Qty: 12 2RF Label Comments: TAKES ON MONDAYS Held aspirin 81 mg tablet,delayed release (DR/EC) 81 mg PO DAILY Qty: 90 3RF Hold Instructions: Resume on 02/13/22.
== END 2022-02-08 14:42 | disposition home or self-care (01) ==
LOC: ANHSURGERY 07:13 → ANH2MED 13:17
PROVIDERS: PCP Family Medicine; Visit Provider Urology
PROC: 0VT08ZZ Resection of Prostate, Via Natural or Artificial Opening Endoscopic (ICD-10-PCS; CPT 52601; principal; 2022-02-07 09:30)
DX: C61 Malignant neoplasm of prostate (principal); R33.8 Other retention of urine; M19.90 Unspecified osteoarthritis, unspecified site; F32.A Depression, unspecified; F41.9 Anxiety disorder, unspecified; I10 Essential (primary) hypertension; E78.5 Hyperlipidemia, unspecified; G47.33 Obstructive sleep apnea (adult) (pediatric); Z79.82 Long term (current) use of aspirin
CPT/HCPCS: 52601; 36415; 80048; 85014; 85018; 88305; 88342; A9270; C1757; J0690; J3010; J7120

== ENCOUNTER 2022-04-14 12:09 | Emergency (ER) | payer OTHER, MEDICARE, SELFPAY ==
--- NOTE | ~2022-04-14 | CT_ITS ---
EXAMINATION: CT facial & cervical spine wo DATE: 04/14/2022 13:16 INDICATION: Status post fall. Head laceration. TECHNIQUE: Computed tomography (CT) of the maxillofacial region and cervical spine was performed with out intravenous contrast. The dose-length product was 316.09 mGy-cm. Automated exposure control and i terative reconstruction technique were employed. COMPARISON: None FINDINGS: MAXILLOFACIAL CT: There is a nasal fracture. Leftward nasal septal deviation. No air-fluid levels in the sinuses. There is right sphenoid sinus disease. Mandible is intact. Temporomandibular joints are symmetric. There a re changes of lens surgery. There is left frontal scalp hematoma. Pterygoid plates and zygomatic arch es are intact. CERVICAL SPINE CT: There is loss of disc height at all cervical spine levels. There is degenerative anterolisthesis at C 4-5 and C6-7. Odontoid process is normal. Craniovertebral junction is normal. There is severe facet h ypertrophy of the mid and lower cervical spine. There is mild multilevel uncinate hypertrophy. Latera l masses are normally aligned. There is mild dextrocurvature of the cervical spine. There is carotid atherosclerosis. No acute fracture or traumatic malalignment. IMPRESSION: 1. Age-indeterminate nasal fracture. 2: No acute abnormality of the cervical spine. 3: Severe cervical spondylosis. Reviewed, dictated and finalized at location A.
--- NOTE | ~2022-04-14 | CT_ITS ---
EXAMINATION: CT brain wo con DATE: 04/14/2022 13:16 INDICATION: Status post fall. TECHNIQUE: Computed tomography (CT) of the head was performed without intravenous contrast. The dose- length product was 681.00 mGy-cm. Automated exposure control and iterative reconstruction technique w ere employed. COMPARISON: None FINDINGS: No acute intracranial hemorrhage, infarction, mass or mass effect. No ventriculomegaly or m idline shift. Generalized atrophy. There are scattered mild periventricular and subcortical white mat ter changes, most likely related to small vessel ischemic disease (microangiopathy). There is a left frontal scalp hematoma. There is mucosal thickening of the right sphenoid sinus. Mastoids are pneumat ized. No depressed skull fractures. IMPRESSION: 1. No acute intracranial abnormality. 2: Chronic age-related findings. Reviewed, dictated and finalized at location A.
[2022-04-14 12:15] VITALS: BP 160/91; PULSE 70; RESP 16; TEMP 36.8; O2SAT 99
--- NOTE | 2022-04-14 12:33 | ED.GENADULT ---
HPI - General Adult General Chief complaint: Head Injury Stated complaint: fall, head injury Time Seen by Provider: 04/14/22 12:19 History of Present Illness HPI narrative: This is an 86-year-old male presenting ED after a ground level fall. Patient walks with 2 canes that brace on his forearms. When he went into a restaurant he says cane slipped forward on the floor and he fell straight forward onto his face. Denies loss conscious. Denies blood thinners. He does have a small laceration over his left eyebrow. Patient denies numbness tingling weakness in extremity. He denies any chest pain palpitations or shortness of breath before the fall. Appears to be purely mechanical. Related Data Home Medications Medication Instructions Recorded Confirmed cranberry fruit 450 mg tablet 450 mg PO DAILY 01/31/22 01/31/22 (cranberry) docusate sodium 50 mg capsule 50 mg PO DAILY 01/31/22 01/31/22 (Stool Softener) multivitamin 1 tablet PO DAILY 01/31/22 01/31/22 polyethylene glycol 3350 17 gram 17 g PO DAILY 01/31/22 01/31/22 oral powder packet (Miralax) Allergies Allergy/AdvReac Type Severity Reaction Status Date / Time sulfamethoxazole AdvReac Intermediate Itching/PALMER Verified 04/14/22 12:24 [From Bactrim] H trimethoprim [From Bactrim] AdvReac Intermediate Itching/PALMER Verified 04/14/22 12:24 H Review of Systems Review of Systems: CONSTITUTIONAL: Denies night sweats. EYES: No eye pain ENT: Denies rhinorrhea CARDIOVASCULAR: Denies palpitations RESPIRATORY: Denies hemoptysis GASTROINTESTINAL: Denies hematemesis GENITOURINARY: Denies hematuria. SKIN: Denies rash MUSCULOSKELETAL: Denies myalgia. NEUROLOGIC: Denies weakness. PSYCHIATRIC: Denies delusions PMFSH Past Medical History Medical History Acute cystitis without hematuria Anxiety Arthritis CAD (coronary artery disease) Degenerative joint disease (DJD) of hip Depression Dizziness DJD (degenerative joint disease), lumbar Hearing loss HLD (hyperlipidemia) HTN (hypertension) Hx of myocardial infarction Left hip pain Left knee DJD Lumbar radiculopathy, chronic JARED (obstructive sleep apnea) Paget disease of bone Rash Skin lesion Trochanteric bursitis, left hip Vision loss Surgical History Surgical History Status post carpal tunnel release Status post cataract extraction Status post right hip replacement Family History Family History Mother Family history of cardiovascular disease Sibling Family history of Parkinson's disease Family history of coronary artery disease Family history of malignant neoplasm of kidney Other Family history of arthritis Family history of malignant neoplasm Hypertension Social History Social History Social History: Smoking status: Never smoker Second hand tobacco smoke exposure: No Alcohol intake: never Substance use: never Substance use type: does not use Gender identity (if verbalized by the patient): Male Sexual Orientation (if Verbalized by the Patient): Straight or Heterosexual Spiritual care concerns: No Exam Narrative: APPEARANCE: No apparent distress. Head atraumatic. EYES: PERRLA/EOMI, NOSE: Normal no drainage NECK: Supple, Trachea midline RESPIRATORY: CTAB, No increased work of breathing. CARDIOVASCULAR: S1S2 appreciated ABDOMINAL: Soft, nontender, nondistended, MUSCULOSKELETAl: No obvious deformities NEURO: Alert. Moving 4/4 extremities SKIN:: Warm, dry. Normal color 2 cm laceration running parallel to the left eyebrow PSYCHIATRIC: Normal affect Course Vital Signs Vital signs: Vital Signs Temperature 98.2 F 04/14/22 12:15 Pulse Rate 70 04/14/22 12:15 Respiratory Rate 16 04/14/22 12:15 Blood Pressure 160/91 H 04/14
[2022-04-14] MEDS: LIDO 2%/EPINEPHRINE 1:100,000 50 ML VIAL 10 ML INFILTRATE (13:30)
[2022-04-14] MEDS: SODIUM CHLORIDE 0.9% IV 1,000 ML 999 ML IV CONT (13:59)
[2022-04-14 14:20] LABS: Basophils Absolute Auto 0.1 K/mm3 (0.0-0.1); Basophils Percent Auto 0.7 % (0.2-1.2); Eosinophils Absolute Auto 0.2 K/mm3 (0-0.3); Hematocrit 37.6 % (42.0-52.0); Immature Granulocyte Absolute 0.03 K/mm3 (0.00-0.031); Immature Granulocyte Percent A 0.3 % (0-0.5); Lymphocytes Absolute Auto 2.44 K/mm3 (0.9-3.2); Lymphocytes Percent Auto 26.8 % (18.3-44.2); Mean Corpuscular HGB Conc 31.9 g/dl (32-36); Mean Corpuscular Hemoglobin 28.8 pg (26-34); Mean Corpuscular Volume 90.4 fl (80-100); Mean Platelet Volume 11.8 fl (7.4-10.4); Monocytes Absolute Auto 0.8 K/mm3 (0.1-0.6); Monocytes Percent Auto 9.1 % (2.6-8.5); Neutrophils Absolute Auto 5.6 K/mm3 (1.3-6.7); Neutrophils Percent Auto 61.1 % (45.5-73.1); Platelet Count Result 209 k/mm3 (150-375); Red Blood Count 4.16 M/mm3 (4.6-6.20); Red Cell Distribution Width 14.7 % (11.5-14.5); White Blood Count 9.1 K/mm3 (4.5-10.0)
[2022-04-14 14:30] LABS: Anion Gap 7 mmol/L (8-16); Blood Urea Nitrogen 11 mg/dL (9-20); Calcium 8.6 mg/dL (8.4-10.2); Carbon Dioxide 27 mmol/L (22-30); Chloride 103 mmol/L (98-107); Estimated CRCL calculation 46 ml/min; Estimated Glomerular Filt Rate > 60; Glucose 96 mg/dL (65-110); INR 1.1; Potassium 4.2 mmol/L (3.4-5.0); Prothrombin Time 13.4 Seconds (11.1-14.7); Sodium 137 mmol/L (137-145)
[2022-04-14 14:31] LABS: Partial Thromboplastin Time 29.2 SECONDS (22.3-36.8)
== END 2022-04-14 15:30 | disposition home or self-care (01) ==
PROVIDERS: Emergency Provider Emergency Medicine; PCP Family Medicine
DX: S01.112A Laceration without foreign body of left eyelid and periocular area, initial encounter (principal); S02.2XXA Fracture of nasal bones, initial encounter for closed fracture; I25.10 Atherosclerotic heart disease of native coronary artery without angina pectoris; E78.5 Hyperlipidemia, unspecified; I10 Essential (primary) hypertension; M16.10 Unilateral primary osteoarthritis, unspecified hip; M17.12 Unilateral primary osteoarthritis, left knee; M47.816 Spondylosis without myelopathy or radiculopathy, lumbar region; F32.A Depression, unspecified; F41.9 Anxiety disorder, unspecified; G47.33 Obstructive sleep apnea (adult) (pediatric); Z98.49 Cataract extraction status, unspecified eye; Z96.641 Presence of right artificial hip joint; Z79.82 Long term (current) use of aspirin; W01.0XXA Fall on same level from slipping, tripping and stumbling without subsequent striking against object, initial encounter
CPT/HCPCS: 12011; 36415; 70450; 70486; 72125; 80048; 85025; 85610; 85730; 96360; 99284; J7030

== ENCOUNTER 2022-04-22 11:12 | Outpatient (CLI) | payer MEDICARE, OTHER, SELFPAY ==
--- NOTE | ~2022-04-22 | XR_ITS ---
XR elbow RT 2V DATE: 04/22/2022 11:38 INDICATION: Right elbow pain. Fall 5 months ago. TECHNIQUE: AP and lateral views COMPARISON: None FINDINGS: There is osteoarthritic joint space narrowing. There is dorsal olecranon process spurring. No fracture or dislocation or joint effusion. No periosteal reaction or bone destruction. Arterial calcification. IMPRESSION: Osteoarthritis. Dorsal olecranon process spurring No fracture or dislocation Reviewed, dictated and finalized at location A. ER UP
== END 2022-04-22 11:13 | disposition home or self-care (01) ==
PROVIDERS: PCP Family Medicine; Visit Provider Family Medicine
DX: M19.021 Primary osteoarthritis, right elbow (principal)
CPT/HCPCS: 73070

== ENCOUNTER 2022-06-18 07:58 | Day surgery (SDC) | payer MEDICARE, OTHER, SELFPAY ==
[2022-06-14 14:42] VITALS: BMI 25.7
--- NOTE | 2022-06-14 14:49 | PC.NURSE ---
Report to the Outpatient Waiting Room, entrance under the green pavilion located off [facility], at time _1200_ on date _[id number]_. Planned Procedure Time: 2pm_. Time changes happen often and if your time is changed the preop area will call you the afternoon before. - You and your visitor will be asked to self-screen and do not enter if you have any COVID symptoms. - Only one visitor is requested with a max of two and NO children visitors are allowed at this time. - The patient visitor may be requested to leave or wait in car when not with patient due to distancing restrictions. - A mask is optional within the hospital. Patients may have clear liquids (water, carbonated beverages, clear teas, apple juice) until 3 hours prior to surgery with a maximum of 20 ounces. - No food from midnight until time of surgery Take the following medications with a SIP of water the morning of surgery: __Atenolol, Bupropion and Paroxetine Medications to discontinue per physician Multivitamin and Cranberry Date to take last dose___Stop today. Please no make-up, nail belarusian, hairspray, perfume, deodorant, or body powder the day of surgery. No jewelry (including any body piercings) or valuables the day of surgery, leave them at home. Please take a shower or bath the night before, or the morning of, surgery with an antibacterial soap. Wear comfortable, loose fitting clothing. - Jewelry must be removed prior to entering the operating room. Rings and piercings that are not removed may be cut off. - The hospital will not accept responsibility for valuables. - Please leave all valuables, including medications, at home the day of surgery. If you are going home after surgery, a licensed tier truck driver must drive you home. - NO public transportation without another adult if you receive anesthesia. - We recommend that an adult stay with you for 24 hours following discharge. - We also recommend that you do not drive, make important decision, drink alcoholic beverages, or take any drugs that were not prescribed by your health care provider for at least 24 hours after your discharge time. Follow any additional instructions given to you from your surgeon. If you or anyone in your household have experienced Covid symptoms in the past week, please notify your surgeon or the nurse liaison at the phone number below for possible testing. Telephone instructions given to _Patient and wife___and asked if any additional questions and then verbalized understanding. Patient advised to call surgeon office or pre surgery nurse liaison [phone] if any additional questions.
--- NOTE | ~2022-06-18 | XR_ITS ---
EXAMINATION: XR fluoroscopy no charge DATE: 06/18/2022 14:00 ASSISTANT SPEECH LANGUAGE PATHOLOGIST INDICATION: URETHRAL DILATION . TECHNIQUE: 1 fluoroscopic image of the pelvis were obtained during ureteral dilation performed by the surgeon. I was not present in the operating room. Fluoroscopy exposure time was 6.5 seconds. DAP 0.0 [id number] mGym2. COMPARISON: None FINDINGS: Partially visualized right hip arthroplasty. Pelvic phleboliths. Cannulation and wire access to the b ladder. IMPRESSION: Fluoroscopic documentation of ureteral dilation. Please refer to the operative note for complete proc edural details . Reviewed, dictated and finalized at location K. STANT SPEECH LANGUAGE PATHOLOGIST IMPRESSION: Fluoroscopic documentation of ureteral dilation. Please refer to the operative note for complete procedural details .
--- NOTE | 2022-06-18 11:08 | WPDANESEPPF ---
Anes - Initial Pre Proc Eval Procedure: Operation Date: 06/18/22 14:15 Proposed Procedures p Cystoscopy with Urethral Dilation of Bladder Neck Contracture with Fluoroscopy - Joseph David MD Date/Time: 06/18/22 11:08 Surgeon: Joseph David MD Pre Op Diagnosis: Bladder Neck Contracture Patient Data Age: 87 Gender: M Height: 1.66 m Weight: 71.4 kg Allergies Allergy/AdvReac Type Severity Reaction Status Date / Time sulfamethoxazole AdvReac Intermediate Itching/PALMER Verified 06/18/22 12:12 [From Bactrim] H trimethoprim [From Bactrim] AdvReac Intermediate Itching/PALMER Verified 06/18/22 12:12 H Home Medications Medication Instructions Recorded Confirmed Type aspirin 81 mg tablet,delayed 81 mg PO DAILY #90 tabs 12/25/21 06/18/22 Rx release atenolol 25 mg tablet 25 mg PO DAILY #90 tabs 12/25/21 06/18/22 Rx atorvastatin 40 mg tablet 40 mg PO DAILY #90 tabs 12/25/21 06/18/22 Rx bupropion HCl 150 mg 24 hr tablet, 150 mg PO QAM #90 tabs 12/25/21 06/18/22 Rx extended release (Wellbutrin XL) omeprazole 20 mg capsule,delayed 20 mg PO DAILY #90 caps 12/25/21 06/18/22 Rx release paroxetine HCl 40 mg tablet 40 mg PO DAILY #90 tabs 12/25/21 06/18/22 Rx cranberry fruit 450 mg tablet 450 mg PO DAILY 01/31/22 06/18/22 History (cranberry) docusate sodium 50 mg capsule 50 mg PO DAILY 01/31/22 06/18/22 History (Stool Softener) multivitamin 1 tablet PO DAILY 01/31/22 06/18/22 History polyethylene glycol 3350 17 gram 17 g PO DAILY 01/31/22 06/18/22 History oral powder packet (Miralax) alendronate 70 mg tablet (Fosamax) 70 mg PO WEEKLY #12 tabs 02/08/22 06/18/22 Rx docusate sodium 100 mg capsule 100 mg PO DAILY #30 caps 02/08/22 06/18/22 Rx (Colace) clonazepam 0.5 mg tablet 0.5 mg PO .qhs #90 tabs 03/26/22 06/18/22 Rx Patient hx anesthesia problems: none Family hx anesthesia problems: none Results Review: All pre-operative results and documents have been reviewed as part of the pre-operative evaluation. [facility] Past Medical History Medical History Acute cystitis without hematuria Anxiety Arthritis CAD (coronary artery disease) Degenerative joint disease (DJD) of hip Depression Dizziness DJD (degenerative joint disease), lumbar Hearing loss HLD (hyperlipidemia) HTN (hypertension) Hx of myocardial infarction Left hip pain Left knee DJD Lumbar radiculopathy, chronic JARED (obstructive sleep apnea) Paget disease of bone Rash Skin lesion Trochanteric bursitis, left hip Vision loss Surgical History Surgical History Status post carpal tunnel release Status post cataract extraction Status post right hip replacement Family History Family History Mother Family history of cardiovascular disease Sibling Family history of Parkinson's disease Family history of coronary artery disease Family history of malignant neoplasm of kidney Other Family history of arthritis Family history of malignant neoplasm Hypertension Social History Social History Social History: Smoking status: Never smoker Second hand tobacco smoke exposure: No Alcohol intake: never Substance use: never Substance use type: does not use Living arrangements: with family Gender identity (if verbalized by the patient): Male Sexual Orientation (if Verbalized by the Patient): Straight or Heterosexual Spiritual care concerns: No Anes - Eval Final PreProcedure Day of Procedure 06/18/22 11:08 Patient weight: overweight Heart: regular rate and rhythm Lungs: clear to auscultation Airway: Mallampati scale class II Neurological: alert and oriented Last oral intake: >/= 8 hours ASA classification: III Emergent: no Anesthetic plan: proceed Anesthesia type and monitorin
[2022-06-18 12:08] VITALS: BP 149/107; PULSE 66; RESP 18; TEMP 36.8; O2SAT 100
[2022-06-18] MEDS: LACTATED RINGERS 1,000 ML 30 ML IV CONT (12:25)
--- NOTE | 2022-06-18 13:11 | WPDHPUPDATE1 ---
History and Physical Update Update Date/Time: 06/18/22 13:11 History and Physical has been reviewed, including an updated exam of the patient. There are NO changes in the patient's condition. Risks, benefits, and alternatives have been discussed and questions answered. Patient agrees to proceed with procedure.
[2022-06-18] MEDS: ceFAZolin 2 GM/D5W 50 ML 2 GM/50 ML BAG IVPB (13:41)
[2022-06-18] MEDS: LIDOCAINE HCL 2% GEL UROJET 10 ML PKG MUCOUS MEM (14:01)
--- NOTE | 2022-06-18 14:17 | P.OP_ITS ---
Procedure Note - Detailed Date of Procedure 06/18/22 Pre-op Diagnosis Bladder Neck Contracture Post-op Diagnosis Same Procedure Performed Cystoscopy with urethral dilatation Surgeon Joseph David MD Anesthesia General Description of Procedure The patient was brought to the operative suite where he was prepped and draped in a routine sterile fashion while in a dorsal lithotomy position after the uneventful induction of a general LMA anesthetic. Cystoscopy was undertaken with a 16 F flexible cystoscope. There were no urethral strictures. The prostatic urethral estimated length was 1.0cm. There was evidence of a prior TURP but no significant regrowth of tissue. There was, however, a very tight, p inpoint opening at his bladder neck. The bladder itself (following dilatation of the bladder neck) was endoscopically normal without foreign body or neoplasm. The bladder mucosa was without hyperemia. There was a single orthotopic ureteral orifice bilaterally with clear efflux of urine. Using the Amplatz dilators I dilated the urethra and bladder neck from 8->24F. I placed an 18 F Councill tip catheter to drainage. The bladder was emptied and the patient was taken to the recovery room in good condition Drains Yes Packing Yes Pathology Yes Complications No immediate complications Condition Stable
[2022-06-18 14:22] VITALS: BP 177/91; PULSE 73; RESP 12; O2SAT 95
[2022-06-18 14:50] VITALS: BP 172/78; PULSE 61; RESP 14
[2022-06-18 15:20] VITALS: BP 159/74; PULSE 61; RESP 14
[2022-06-18 15:50] VITALS: BP 166/75; PULSE 59; RESP 14
[2022-06-18 16:10] VITALS: BP 171/87; PULSE 63; RESP 16
== END 2022-06-18 16:30 | disposition home or self-care (01) ==
PROVIDERS: PCP Family Medicine; Visit Provider Urology
PROC: 0T7D8ZZ Dilation of Urethra, Via Natural or Artificial Opening Endoscopic (ICD-10-PCS; CPT 52281; principal; 2022-06-18 14:15)
DX: N32.0 Bladder-neck obstruction (principal); I10 Essential (primary) hypertension; E78.5 Hyperlipidemia, unspecified; G47.33 Obstructive sleep apnea (adult) (pediatric); I25.10 Atherosclerotic heart disease of native coronary artery without angina pectoris; F41.9 Anxiety disorder, unspecified; F32.A Depression, unspecified; I25.2 Old myocardial infarction; Z79.82 Long term (current) use of aspirin
CPT/HCPCS: 52281; 99199; A9270; C1726; J0690; J2704; J3010; J7120

== ENCOUNTER 2022-09-13 17:06 | Emergency (ER) | payer MEDICARE, OTHER, SELFPAY ==
[2022-09-13 17:18] VITALS: BP 175/76; PULSE 67; RESP 16; TEMP 37.3; O2SAT 98
[2022-09-13 17:22] VITALS: BP 175/76; PULSE 67; RESP 16; TEMP 37.3; O2SAT 98
--- NOTE | 2022-09-13 17:37 | ED.GENADULT ---
HPI - General Adult General Chief complaint: Recheck/Abnormal Lab/Rx Stated complaint: hbp Time Seen by Provider: 09/13/22 17:37 Source: patient, RN notes reviewed and old records reviewed Mode of arrival: ambulatory Limitations: no limitations History of Present Illness HPI narrative: 87-year-old male presents to the [facility] with concerns over his blood pressure. Patient reports both diastolic and systolic were over 200 so he came in to be checked. Denies any chest pain, shortness of breath, blurry vision or change in vision. Related Data Home Medications Medication Instructions Recorded Confirmed cranberry fruit 450 mg tablet 450 mg PO DAILY 01/31/22 08/09/22 (cranberry) docusate sodium 50 mg capsule 50 mg PO DAILY 01/31/22 08/09/22 (Stool Softener) multivitamin 1 tablet PO DAILY 01/31/22 08/09/22 polyethylene glycol 3350 17 gram 17 g PO DAILY 01/31/22 08/09/22 oral powder packet (Miralax) Allergies Allergy/AdvReac Type Severity Reaction Status Date / Time sulfamethoxazole AdvReac Intermediate Itching/PALMER Verified 09/13/22 17:18 [From Bactrim] H trimethoprim [From Bactrim] AdvReac Intermediate Itching/PALMER Verified 09/13/22 17:18 H Review of Systems Review of Systems: All systems reviewed & are unremarkable except as noted in HPI and below Constitutional: Constitutional: Reports no additional constitutional complaints Eyes: Eyes: Reports no additional eye complaints ENT: Reports system reviewed and no additional complaints, except as documented Cardiovascular: Cardiovascular: Reports no additional cardiovascular complaints, Denies chest pain and Denies dyspnea Respiratory: Respiratory: Reports no additional respiratory complaints, Denies chest congestion, Denies cough and Denies dyspnea Gastrointestinal: Gastrointestinal: Reports no additional gastrointestinal complaints, Denies abdominal pain, Denies nausea and Denies vomiting Musculoskeletal: Musculoskeletal: Reports no additional musculoskeletal complaints Integumentary/Breasts: Skin/Breast: Reports system reviewed and no additional complaints, except as docu Neurologic: Reports system reviewed and no additional complaints, except as documented Psychiatric: Psychiatric: Reports no additional psychiatric complaints Allergic/Immunologic: Allergic/Immunologic: Reports no additional allergic/immunologic complaints PMFSH Past Medical History Medical History (Updated 09/13/22 @ 17:51 by Patti Palmer APRN) Acute cystitis without hematuria Anxiety Arthritis CAD (coronary artery disease) Degenerative joint disease (DJD) of hip Depression Dizziness DJD (degenerative joint disease), lumbar Hearing loss HLD (hyperlipidemia) HTN (hypertension) Hx of myocardial infarction Left hip pain Left knee DJD Lumbar radiculopathy, chronic JARED (obstructive sleep apnea) Paget disease of bone Prostate cancer Rash Skin lesion Trochanteric bursitis, left hip Vision loss Surgical History Surgical History Status post carpal tunnel release Status post cataract extraction Status post right hip replacement Family History Family History Mother Family history of cardiovascular disease Sibling Family history of Parkinson's disease Family history of coronary artery disease Family history of malignant neoplasm of kidney Other Family history of arthritis Family history of malignant neoplasm Hypertension Social History Social History Social History: Smoking status: Never smoker Second hand tobacco smoke exposure: No Alcohol intake: never Substance use: never Substance use type: does not use Lack of Transportation: No Lack of Food: Never True Current Housing: I Have Housing Concerned About Future Housing: No Difficulty Paying Gas/Electric Bill
[2022-09-13 17:51] VITALS: BP 170/78
== END 2022-09-13 17:55 | disposition home or self-care (01) ==
PROVIDERS: Emergency Provider Nurse Practitioner; PCP Family Medicine
DX: I10 Essential (primary) hypertension (principal); M19.90 Unspecified osteoarthritis, unspecified site; I25.10 Atherosclerotic heart disease of native coronary artery without angina pectoris; M47.816 Spondylosis without myelopathy or radiculopathy, lumbar region; M17.12 Unilateral primary osteoarthritis, left knee; M88.9 Osteitis deformans of unspecified bone; Z85.46 Personal history of malignant neoplasm of prostate; Z96.641 Presence of right artificial hip joint
CPT/HCPCS: 99211; G0463

== ENCOUNTER 2022-10-17 18:03 | Inpatient (IN) | payer MEDICARE, OTHER, SELFPAY ==
--- NOTE | ~2022-10-17 | XR_ITS ---
EXAMINATION: XR abdomen/kub 1V DATE: 10/21/2022 15:38 INDICATION: Possible right-sided renal stone for surgical planning. TECHNIQUE: A supine view of the abdomen on 2 radiographs was obtained. COMPARISON: CT dated 10/17/2022 FINDINGS: Right internal ureteral stent with distal loop formed in the bladder and partially formed proximal lo op in the region of the right renal pelvis. Phleboliths in the pelvis. The 9 mm stone previously seen at the right ureteropelvic junction is not identified on the current study. No evident urolithiasis. Mild lumbar levoscoliosis with severe spondylosis. With pagetoid changes at the visualized portion o f the proximal right femur. Severe left hip osteoarthritis. Incompletely visualized right hip hemiart hroplasty. IMPRESSION: 1. Right internal ureteral stent in expected position. The previously noted right renal stone is not identified. Reviewed, dictated and finalized at location A. IMPRESSION: 1. Right internal ureteral stent in expected position. The previously noted rig ht renal stone is not identified.
--- NOTE | ~2022-10-17 | XR_ITS ---
EXAMINATION: XR chest 1V portable DATE: 10/18/2022 08:20 INDICATION: Hypoxia TECHNIQUE: frontal view of the chest was obtained. COMPARISON: Chest radiograph dated 12/25/2017 FINDINGS: Mild predominantly linear opacities at the bilateral lung bases and favor atelectasis over pneumonia. No pleural effusion or pneumothorax. The cardiomediastinal silhouette is normal. Moderate degenerati ve skeletal changes in the spine and at both shoulders. IMPRESSION: 1. Streaky bibasilar opacities and favor atelectasis over pneumonia. Reviewed, dictated and finalized at location B.
--- NOTE | ~2022-10-17 | CT_ITS ---
EXAMINATION: CT abdomen pelvis wo con DATE: 10/17/2022 19:54 INDICATION: flank pain, UTI TECHNIQUE: Computed tomography (CT) of the abdomen and pelvis was performed without intravenous contr ast. Automated exposure control and iterative reconstruction technique were employed. The dose-length product was 518.91 mGy-cm. COMPARISON: 12/25/2017. FINDINGS: Motion limited examination, particularly in the upper abdomen. Lower thorax: Dependent atelectasis. Bibasilar scarring. Aortic valve, mitral, and coronary artery ca lcifications. Large hiatal hernia Liver: Normal. Biliary/Gallbladder: Gallbladder is normal. No bile duct dilation. Pancreas: No mass or duct dilation. Spleen: Normal. Adrenals:No mass. Kidneys: Mild left and moderate right perinephric stranding. Moderate right caliectasis and pelviecta sis. 9 mm calcification in the right UPJ GI tract: No small or large bowel dilation. Normal appendix. Mesentery/Peritoneum: No ascites, mass, or free air. Retroperitoneum: No mass. Atherosclerotic abdominal aortic and/or arterial calcifications. Pelvis: Pelvic contents partially obscured by metal artifact. Mild bladder wall thickening in a parti ally distended urinary bladder. Prostatomegaly. Soft Tissues: Uncomplicated bilateral inguinal and umbilical fat-containing hernias. Bones: Stable moderate L1 compression deformity. Severe left hip osteoarthritis. Right hip arthropla sty, partially visualized, with heterotopic bone, surrounding lucencies and sclerosis, grossly stable since the prior study. IMPRESSION: 9 mm right UPJ calcification causing moderate obstructive uropathy. Bladder wall thickening may be se condary to outlet obstruction, incomplete distention, or cystitis. Reviewed, dictated and finalized at location K. IMPRESSION: 9 mm right UPJ calcification causing moderate obstructive uropathy. Bladder wal l thickening may be secondary to outlet obstruction, incomplete distention, or cystitis.
--- NOTE | ~2022-10-17 | XR_ITS ---
Portable chest x-ray Comparison: 10/18/2022 at 8:05 AM Clinical History: Line placed Findings: Right-sided IJ line is in satisfactory position. There is minimal bibasilar interstitial p rominence. Probable left basilar atelectatic change. Cardiomediastinal silhouette is stable. Bones a nd soft tissues are unremarkable. Impression: Support line in place, as above. No pneumothorax. Probable mild interstitial prominence and focal left basilar airspace opacity. Correlate for pulmonar y edema/atelectasis versus infection. Reviewed, dictated and finalized at location . Impression: Support line in place, as above. No pneumothorax. Probable mild interstitial prominence and focal left basilar airspace opacity. Correlate for pulmonary edema/atelectasis versus infection.
[2022-10-17 18:12] VITALS: BP 177/91; PULSE 77; RESP 16; TEMP 36.6; O2SAT 100
--- NOTE | 2022-10-17 18:22 | PC.NURSE ---
Pt reports he finished a round of antibiotics about a week ago that were prescribed for treatment of UTI. Pt reports he has increased burning with urination, and increased retention.
--- NOTE | 2022-10-17 18:39 | ED.GENADULT ---
HPI - General Adult General Chief complaint: Urogenital-Male Stated complaint: right kidney pain Time Seen by Provider: 10/17/22 18:16 History of Present Illness HPI narrative: 87-year-old male presented the emergency department for evaluation of right flank pain. Patient was recently treated for urinary tract infection with ciprofloxacin. Patient states that while he was treated with antibiotics he did not feel he had complete resolution of his symptoms. Patient states this evening he had acute onset of right flank pain. Patient states he does have a history of kidney stones but is unsure if this pain feels similar to his previous kidney stones. Patient denies any pain with urination. Patient does have history of enlarged prostate and urinary retention. Related Data Home Medications Medication Instructions Recorded Confirmed cranberry fruit 450 mg tablet 450 mg PO DAILY 01/31/22 09/24/22 (cranberry) docusate sodium 50 mg capsule 50 mg PO DAILY 01/31/22 09/24/22 (Stool Softener) multivitamin 1 tablet PO DAILY 01/31/22 09/24/22 polyethylene glycol 3350 17 gram 17 g PO DAILY 01/31/22 09/24/22 oral powder packet (Miralax) Allergies Allergy/AdvReac Type Severity Reaction Status Date / Time sulfamethoxazole AdvReac Intermediate Itching/PALMER Verified 10/17/22 18:04 [From Bactrim] H trimethoprim [From Bactrim] AdvReac Intermediate Itching/PALMER Verified 10/17/22 18:04 H Review of Systems Review of Systems: All systems reviewed & are unremarkable except as noted in HPI and below PMFSH Past Medical History Medical History Acute cystitis without hematuria Anxiety Arthritis CAD (coronary artery disease) Degenerative joint disease (DJD) of hip Depression Dizziness DJD (degenerative joint disease), lumbar Hearing loss HLD (hyperlipidemia) HTN (hypertension) Hx of myocardial infarction Left hip pain Left knee DJD Lumbar radiculopathy, chronic JARED (obstructive sleep apnea) Paget disease of bone Prostate cancer Rash Skin lesion Trochanteric bursitis, left hip Vision loss Surgical History Surgical History Status post carpal tunnel release Status post cataract extraction Status post right hip replacement Family History Family History Mother Family history of cardiovascular disease Sibling Family history of Parkinson's disease Family history of coronary artery disease Family history of malignant neoplasm of kidney Other Family history of arthritis Family history of malignant neoplasm Hypertension Social History Social History Social History: Smoking status: Never smoker Second hand tobacco smoke exposure: No Alcohol intake: never Substance use: never Substance use type: does not use Lack of Transportation: No Lack of Food: Never True Current Housing: I Have Housing Concerned About Future Housing: No Difficulty Paying Gas/Electric Bills: No Difficulty Paying for Meds: No Currently Unemployed: No Education: High School Diploma/GED Difficulty w/ Childcare or Family Care: No Living arrangements: with family Occupation/Education: retired Gender identity (if verbalized by the patient): Male Sexual Orientation (if Verbalized by the Patient): Straight or Heterosexual Spiritual care concerns: No Exam Narrative: APPEARANCE: Uncomfortable appearing HEAD: normocephalic, atraumatic. EYES: PERRLA/EOMI, conjunctivae clear. NECK: Supple. No adenopathy, no masses. RESPIRATORY: Airway patent, respirations nonlabored. Clear to auscultation bilaterally, no rales, rhonchi, wheezing. CARDIOVASCULAR: Regular rate and rhythm without murmurs rubs or gallops. ABDOMINAL: Soft, right flank tenderness to palpation MUSCULOSKELETAL: Moves all extremi
[2022-10-17] MEDS: fentaNYL CITRATE INJ (*CRX) 100 MCG/2 ML VIAL 25 MCG IV PUSH ×3 (18:45→20:58)
[2022-10-17 18:57] LABS: Basophils Absolute Auto 0.1 K/mm3 (0.0-0.1); Basophils Percent Auto 0.6 % (0.2-1.2); Eosinophils Absolute Auto 0.3 K/mm3 (0-0.3); Eosinophils Percent Auto 2.9 % (0-4.4); Hematocrit 39.6 % (42.0-52.0); Hemoglobin 12.7 g/dL (14.0-18.0); Immature Granulocyte Absolute 0.03 K/mm3 (0.00-0.031); Immature Granulocyte Percent A 0.3 % (0-0.5); Lymphocytes Absolute Auto 2.67 K/mm3 (0.9-3.2); Lymphocytes Percent Auto 28.9 % (18.3-44.2); Mean Corpuscular HGB Conc 32.1 g/dl (32-36); Mean Corpuscular Hemoglobin 27.6 pg (26-34); Mean Corpuscular Volume 86.1 fl (80-100); Mean Platelet Volume 11.7 fl (7.4-10.4); Monocytes Absolute Auto 0.6 K/mm3 (0.1-0.6); Monocytes Percent Auto 6.7 % (2.6-8.5); Neutrophils Absolute Auto 5.6 K/mm3 (1.3-6.7); Neutrophils Percent Auto 60.6 % (45.5-73.1); Platelet Count Result 246 k/mm3 (150-375); Red Cell Distribution Width 16.7 % (11.5-14.5); White Blood Count 9.2 K/mm3 (4.5-10.0)
[2022-10-17 19:18] LABS: Alanine Aminotransferase 20 U/L (6-50); Albumin Level 4.2 g/dL (3.5-5.1); Alkaline Phosphatase 142 U/L (38-126); Anion Gap 7 mmol/L (8-16); Aspartate Amino Transferase 36 U/L (17-59); Bilirubin,Total 0.6 mg/dL (0.2-1.3); Blood Urea Nitrogen 17 mg/dL (9-20); Calcium 8.9 mg/dL (8.4-10.2); Carbon Dioxide 27 mmol/L (22-30); Chloride 102 mmol/L (98-107); Estimated CRCL calculation 39 ml/min; Estimated Glomerular Filt Rate > 60; Glucose 100 mg/dL (65-110); Potassium 4.2 mmol/L (3.4-5.0); Sodium 136 mmol/L (137-145)
[2022-10-17 19:19] VITALS: BP 185/94; PULSE 73; RESP 15; TEMP 36.6; O2SAT 100
[2022-10-17 19:28] LABS: Appearance Urine Turbid (Clear); Bacteria Urine 4+ /hpf; Bilirubin Urine Negative (Negative); Blood Urine 3+ (Negative); Color Urine Yellow (Yellow); Glucose Urine UA Negative (Negative); Ketones Urine Negative (Negative); Leukocyte Esterase Ur 3+ LEU/UL (Negative); Need Manual Microscopic Reviewed; Nitrate Urine Positive (Negative); Protein Urine 1+ mg/dL (Negative); RBC Urine >100 /hpf (0-2); Specific Grav Ur 1.012 (1.001-1.035); Squamous Epithelial Cell Urine None seen /hpf (Few); Urobilinogen Urine 0.2 mg/dL (<2.0); WBC Urine >100 /hpf
[2022-10-17 19:29] LABS: Add Urine Microscopic? YES
[2022-10-17] MEDS: PHENAZOPYRIDINE HCL 100 MG TABLET 200 MG PO (20:09)
[2022-10-17 20:37] VITALS: BP 150/68; PULSE 91; RESP 20; O2SAT 99
[2022-10-17] MEDS: ONDANSETRON INJ 4 MG/2 ML VIAL IV PUSH (20:58)
[2022-10-17] MEDS: SODIUM CHLORIDE 0.9% IV 1,000 ML 75 ML IV CONT ×2 (21:03→22:39)
--- NOTE | 2022-10-17 21:36 | PM.IMHP ---
H&P: HPI History of Present Illness Date/Time: 10/17/22 21:36 Chief Complaint: Right flank pain Narrative: This is an 87-year-old male with past medical history significant for kidney stone, osteoporosis, dyslipidemia, hypertension. Patient presents to the emergency room with right flank pain, of 1 day duration, has be having pain and burning with urination for the last month or so, had chills in the morning, generalized weakness, pain is at 10/10 in intensity relieved by pain medication, denies any abdominal pain,, nausea, vomiting, diarrhea, shortness of breath, cough, sputum production. Preliminary workup was significant for: A urinalysis was reported with more than 100 wbc's per high-power field a CT of abdomen and pelvis was reported as; EXAMINATION: CT abdomen pelvis wo con DATE: 10/17/2022 19:54 INDICATION: flank pain, UTI TECHNIQUE: Computed tomography (CT) of the abdomen and pelvis was performed without intravenous contrast. Automated exposure control and iterative reconstruction technique were employed. The dose-length product was 518.91 mGy-cm. COMPARISON: 12/25/2017. FINDINGS: Motion limited examination, particularly in the upper abdomen. Lower thorax: Dependent atelectasis. Bibasilar scarring. Aortic valve, mitral, and coronary artery calcifications. Large hiatal hernia Liver: Normal.? Biliary/Gallbladder: Gallbladder is normal. No bile duct dilation. Pancreas: No mass or duct dilation. Spleen: Normal. Adrenals:No mass. Kidneys: Mild left and moderate right perinephric stranding. Moderate right caliectasis and pelviectasis. 9 mm calcification in the right UPJ GI tract: No small or large bowel dilation. Normal appendix. Mesentery/Peritoneum: No ascites, mass, or free air. Retroperitoneum: No mass. Atherosclerotic abdominal aortic and/or arterial calcifications. Pelvis: Pelvic contents partially obscured by metal artifact. Mild bladder wall thickening in a partially distended urinary bladder. Prostatomegaly. Soft Tissues: Uncomplicated bilateral inguinal and umbilical fat-containing hernias. Bones:? Stable moderate L1 compression deformity. Severe left hip osteoarthritis. Right hip arthroplasty, partially visualized, with heterotopic bone, surrounding lucencies and sclerosis, grossly stable since the prior study. IMPRESSION: 9 mm right UPJ calcification causing moderate obstructive uropathy. Bladder wall thickening may be secondary to outlet obstruction, incomplete distention, or cystitis. Review of Systems Review of Systems: Back pain, flank pain, chills, pain and burning with urination, poor appetite Constitutional: Constitutional: Reports chills, Reports fatigue, Reports poor appetite and Reports weakness Eyes: Eyes: Denies change in vision ENT: Denies dysphagia, Denies vertigo, Denies dizziness, Denies nasal congestion, Denies nasal discharge and Denies odynophagia Cardiovascular: Cardiovascular: Denies chest pain, Denies leg edema and Denies palpitations Respiratory: Respiratory: Denies chest congestion, Denies cough, Denies dyspnea and Denies wheezing Gastrointestinal: Gastrointestinal: Denies abdominal pain, Denies dyspepsia, Denies heartburn, Denies diarrhea and Denies vomiting Genitourinary: Genitourinary: Reports dysuria and Reports flank pain Musculoskeletal: Musculoskeletal: Denies arthralgias and Denies joint swelling Integumentary/Breasts: Skin/Breast: Denies rash Neurologic: Denies focal weakness and Denies Sensory deficit (Neuro) Psychiatric: Psychiatric: Reports no additional psychiatric complaints and Reports as per HPI Endocrine: Endocrine: Denies cold intolerance, Denies flushing, Denies heat intolerance, Denies polyphagia, Denies polydipsia and Denies palpitations Hematologic/Lymphatic: Hematologic/Lymphatic: Reports no additional hematologic/lymphatic complaints and Reports as per HPI Allergic/Immunologic: Allergic/Immunologic: Reports no additional allergic/immunologic complai
[2022-10-17 21:57] VITALS: BP 135/52; PULSE 90; RESP 18; O2SAT 100
[2022-10-17 22:12] VITALS: BP 130/80; PULSE 100; RESP 18; O2SAT 98
--- NOTE | 2022-10-17 22:31 | ADMGEN ---
This patient, Power Ayers, was admitted to Medical Room 254-01. Patient/family oriented to hospital policies and general routines including ID bracelet, bed and alarms, visiting hours, pain management, procedures, bathroom and other care routines, personal items, smoking policy, room service/diet, and visiting hours. Information on how to activate the Rapid Response Team has been discussed. Patient/Family are encouraged to report perceived risks to care and to ask questions if they do not understand what they are told or what they should do.
[2022-10-17 22:39] VITALS: BP 120/75; PULSE 97; RESP 16; TEMP 36.4; O2SAT 97
[2022-10-17 22:40] VITALS: BMI 24.9
[2022-10-18] VITALS (45 sets, daily range): BP systolic 72–140; BP diastolic 39–90; PULSE 75–125; RESP 16–26; TEMP 36.5–40.1; O2SAT 90–99
--- NOTE | 2022-10-18 | ECHO_ITS ---
Patient Info Name: Power Ayers Age: 87 years : 1935 Gender: Male Ht: 66 in Wt: 154 lbs BSA: 1.81 m2 HR: 102 bpm BP: 108 / 59 mmHg Heart Rhythm: Sinus Rhythm Technical Quality: Fair Exam Date: 10/18/2022 2:50 PM Exam Location: [facility] Exam Room: ICU2 Patient Status: Inpatient Admit Date: 10/18/2022 Staff Ordering Physician: Nitza Pena MD Controls Engineer: Jen Boone RDCS Attending Provider: Eleonora Dominguez MD Referring Physician: Jean WILSON; Exam Type: CA echo doppler color flow Study Info Indications - POSTOP - SHOCK Complete two-dimensional, color flow and Doppler transthoracic echocardiogram is performed. Summary 1. Complete two-dimensional, color flow and Doppler transthoracic echocardiogram is performed. 2. Normal left ventricular systolic function with grade 1 diastolic noncompliance. 3. Sclerotic but not stenotic aortic valve. 4. Left atrial enlarged. 5. Trivial MR. Left Ventricle Left ventricular chamber dimension is normal. Left ventricular systolic function is normal, estimated at 65-70%. The left ventricular diastolic function is grade I diastolic dysfunction. Right Ventricle Right ventricular chamber dimension is normal. Left Atria Left atrial chamber dimension is mildly enlarged. Right Atria Right atrial chamber dimension is normal. Aortic Valve The aortic valve is trileaflet. There is mild aortic valve sclerosis. There is no aortic valve stenosis. Pulmonic Valve The pulmonic valve is not well visualized. Mitral Valve The mitral valve has normal leaflets. There is trace mitral valve regurgitation. The mitral valve annulus is mildly calcified. Tricuspid Valve The tricuspid valve leaflets are normal. Pericardium/Pleural The pericardium appears normal. Aorta The aortic root size at the sinus of Valsalva is normal. Left Ventricular Outflow Tract Name Value Normal LVOT 2D LVOT Diameter 2.0 cm LVOT Doppler LVOT Peak Gradient 6 mmHg LVOT Mean Gradient 4 mmHg LVOT VTI 27 cm LVOT VTI/AV VTI Ratio 0.8 LVOT Stroke Volume 82 ml LVOT CO 17.3 l/min LVOT CI 9.5 l/min/m2 Pulmonic Valve Name Value Normal RVOT Doppler RVOT Peak Gradient 2 mmHg PV Doppler PV Peak Gradient 2 mmHg Mitral Valve Name Value Normal MV Doppler MV Decel [place] 691 cm/s2 MV PHT
[2022-10-18] MEDS: DEXTROSE 5%/LACTATED RINGERS 1,000 ML 70 ML IV CONT (01:43)
[2022-10-18] MEDS: clonazePAM (*CRX) 0.5 MG TABLET PO (01:43)
[2022-10-18] MEDS: ONDANSETRON INJ 4 MG/2 ML VIAL IV PUSH (07:38)
[2022-10-18] MEDS: fentaNYL CITRATE INJ (*CRX) 100 MCG/2 ML VIAL 25 MCG IV PUSH (07:47)
--- NOTE | 2022-10-18 07:54 | ECG_ITS ---
Measurements Intervals [place] Rate: 102 P: 13 FL: 145 QRS: -1 QRSD: 86 T: 16 QT: 309 QTc: 402 Interpretive Statements SINUS TACHYCARDIA POSSIBLE LEFT ATRIAL ENLARGEMENT BORDERLINE T WAVE ABNORMALITY- INFERIOR LEADS BASELINE ARTIFACT- II, III, AVR, AVL, AVF, V2 BORDERLINE ECG COMPARED TO ECG 02/01/2022 10:07:06 SINUS TACHYCARDIA NOW PRESENT ST (T WAVE) DEVIATION NOW PRESENT Electronically Signed On 10-18-2022 8:28:50 CDT by Onesimo Parmar D.O.
--- NOTE | 2022-10-18 07:54 | PM.IMPN ---
Progress Note: A&P Assessment and Plan (1) Sepsis: Qualifiers: Sepsis type: sepsis due to unspecified organism Sepsis acute organ dysfunction status: with acute organ dysfunction Severe sepsis acute organ dysfunction type: acute renal failure Acute renal failure type: unspecified Severe sepsis shock status: without septic shock Qualified Code(s): A41.9 - Sepsis, unspecified organism; R65.20 - Severe sepsis without septic shock; N17.9 - Acute kidney failure, unspecified Code(s): A41.9 - Sepsis, unspecified organism Status: Acute Assessment and Plan: Patient febrile, tachycardia, tachypnea, bandemia >10%, lactic acid 9.3, UA suggestive of acute infection, and CT abd/pelvis with bilateral perinephritic stranding right worse than left as well as bladder wall thickening. patient was given 1 L IV fluids in ED and started on D5LR upon admission. Lactic acid 9 today, CRP 5.3, procalcitonine 52. Give 1 L NS bolus now. Change fluids to LR. Patient is on his way to OR for urgent stent placement. Will ensure OR team follow for aggressive fluid resuscitation. Repeat lactic acid in 4 hours. Blood cultures drawn x2 Urine culture pending. Prior urine cultures show e.coli growth with resistance to Unasyn and ampicillin as of 09/2022. Change to meropenem IV for possible ESBL UTI. Add vancomycin for broad-spectrum coverage for acutely ill patient. BUN/creatinine elevated and troponin mildly elevated suggesting demand ischemia from sepsis EKG without ischemic changes. (2) Kidney stone on right side: Code(s): N20.0 - Calculus of kidney Status: Acute Assessment and Plan: 9 mm right UPJ calcification causing moderate obstructive uropathy Urology consulted. urgent ureteral stent placement today NPO. Hold aspirin. (3) Pyelonephritis: Code(s): N12 - Tubulo-interstitial nephritis, not specified as acute or chronic Status: Acute Assessment and Plan: Patient is febrile, c/o flank pain, CT with perinephritic stranding. Continue management as above. (4) Acute kidney injury: Code(s): N17.9 - Acute kidney failure, unspecified Status: Acute Assessment and Plan: Secondary to sepsis, hypovolemia, and obstructive uropathy. Continue IV fluid resuscitation. Avoid nephrotoxic agents. Trend BMP. Monitor I/O. (5) HTN (hypertension): Qualifiers: Hypertension type: primary hypertension Qualified Code(s): I10 - Essential (primary) hypertension Code(s): I10 - Essential (primary) hypertension Status: Chronic Assessment and Plan: Chronic. NPO for procedure. Hold lisinopril for now. (6) Chronic GERD: Code(s): K21.9 - Gastro-esophageal reflux disease without esophagitis Status: Chronic Assessment and Plan: On PPI (7) JARED (obstructive sleep apnea): Code(s): G47.33 - Obstructive sleep apnea (adult) (pediatric) Status: Chronic Assessment and Plan: Unclear if use of CPAP Plan 1117 In OR and PACU patient was hypotensive and started on pressor support. Patient was transferred to the ICU for further management of septic shock.? CODE STATUS: FULL CODE DVT prophylaxis: initiate pharmacologic prophylaxis postprocedure when okay with Urology. Diet: NPO Antibiotic day: 1 Meropenem and Vancomycin Time Spent With Patient Time: >90 minutes critical care time spent stabilizing patient; reviewing labs, imaging and EKG; medication changes and monitoring patient response. Subjective Date/time seen: 10/18/22 07:54 Interval history: I was contacted by the patients nurse with concerns for the patient's status. Patient was found to be anxious, tachypneic, tachycardic 120s, febrile 105F with rigors, and spO2 94% on 2L NC. Patient c/o lower back pain worse to left flank area. He denied chest pain or SOB. CBC, CMP, lactic acid, blood cultures x2, troponin I, pro-BNP, CRP, pro
[2022-10-18 08:03] LABS: Hematocrit 37.4 % (42.0-52.0); Hemoglobin 11.7 g/dL (14.0-18.0); Mean Corpuscular HGB Conc 31.3 g/dl (32-36); Mean Corpuscular Hemoglobin 27.4 pg (26-34); Mean Corpuscular Volume 87.6 fl (80-100); Mean Platelet Volume 11.9 fl (7.4-10.4); Platelet Count Result 144 k/mm3 (150-375); Red Blood Count 4.27 M/mm3 (4.6-6.20); Red Cell Distribution Width 16.7 % (11.5-14.5); White Blood Count 6.6 K/mm3 (4.5-10.0)
[2022-10-18 08:06] LABS: Alveolar/Arterial O2 Gradient 138.9 mmHg; Base Excess ABG -9.6 mEq/l (+/-2.0); Carboxyhemoglobin 0.3 % THb (0-2.0); Fractional Inspired Oxygen 32 %; Methemoglobin ABG 0.5 %THb (0-1.5); Oxygen Content ABG 15.6 %vol (16.0-22.0); Oxygen Saturation ABG 93.4 % (95.0-100.0); PO2 ABG 64.7 mmHg (80.0-100.0); PO2 FiO2 Ratio Arterial Blood 2.02 %; Reduced Hemoglobin 8.2 %THb (0-5.0); Total Hemoglobin 12.2 g/dL (12.0-18.0)
--- NOTE | 2022-10-18 08:09 | WPDANESEPPF ---
Anes - Initial Pre Proc Eval Procedure: Operation Date: 10/18/22 15:00 Proposed Procedures p Cystoscopy, Right Stent Placement - Joseph David MD Date/Time: 10/18/22 08:09 Surgeon: Eleonora Dominguez MD Pre Op Diagnosis: Abnormal UA, Kidney Stone Patient Data Age: 87 Gender: M Height: 1.68 m Weight: 70 kg Last Vital Signs Temp 40 C H 10/18/22 07:49 Pulse 125 H 10/18/22 07:40 Resp 26 H 10/18/22 07:40 BP 140/90 10/18/22 07:23 Pulse Ox 94 10/18/22 07:40 O2 Del Method Room Air 10/17/22 18:12 Allergies Allergy/AdvReac Type Severity Reaction Status Date / Time sulfamethoxazole AdvReac Intermediate Itching/PALMER Verified 10/17/22 18:04 [From Bactrim] H trimethoprim [From Bactrim] AdvReac Intermediate Itching/PALMER Verified 10/17/22 18:04 H Home Medications Medication Instructions Recorded Confirmed Type aspirin 81 mg tablet,delayed 81 mg PO DAILY #90 tabs 12/25/21 10/17/22 Rx release atenolol 25 mg tablet 25 mg PO DAILY #90 tabs 12/25/21 10/17/22 Rx atorvastatin 40 mg tablet 40 mg PO DAILY #90 tabs 12/25/21 10/17/22 Rx bupropion HCl 150 mg 24 hr tablet, 150 mg PO QAM #90 tabs 12/25/21 10/17/22 Rx extended release (Wellbutrin XL) omeprazole 20 mg capsule,delayed 20 mg PO DAILY #90 caps 12/25/21 10/17/22 Rx release cranberry fruit 450 mg tablet 450 mg PO DAILY 01/31/22 10/17/22 History (cranberry) docusate sodium 50 mg capsule 50 mg PO DAILY 01/31/22 10/17/22 History (Stool Softener) multivitamin 1 tablet PO DAILY 01/31/22 10/17/22 History polyethylene glycol 3350 17 gram 17 g PO DAILY 01/31/22 10/17/22 History oral powder packet (Miralax) alendronate 70 mg tablet (Fosamax) 70 mg PO WEEKLY #12 tabs 07/22/22 10/17/22 Rx clonazepam 0.5 mg tablet 0.5 mg PO .qhs #90 tabs 09/24/22 10/17/22 Rx acetaminophen 500 mg tablet 500 mg PO DAILY 10/17/22 10/17/22 History lisinopril 10 mg tablet 10 mg PO DAILY 10/17/22 10/17/22 History loratadine 10 mg tablet (Claritin) 10 mg PO DAILY 10/17/22 10/17/22 History naproxen sodium 220 mg tablet 220 mg PO DAILY 10/17/22 10/17/22 History (Aleve) paroxetine HCl 40 mg tablet (Paxil) 40 mg PO DAILY 10/17/22 10/17/22 History Laboratory Tests 10/17/22 10/17/22 10/18/22 18:50 18:51 07:52 WBC 9.2 K/mm3 Pending (4.5-10.0) RBC 4.60 M/mm3 Pending (4.6-6.20) Hgb 12.7 L g/dL Pending (14.0-18.0) Hct 39.6 L % Pending (42.0-52.0) MCV 86.1 fl Pending (80-100) MCH 27.6 pg Pending (26-34) MCHC 32.1 g/dl Pending (32-36) RDW 16.7 H % Pending (11.5-14.5) Plt Count 246 k/mm3 Pending (150-375) MPV 11.7 H fl Pending (7.4-10.4) Immature Gran % (Auto) 0.3 % Pending (0-0.5) Neut % (Auto) 60.6 % Pending (45.5-73.1) Lymph % (Auto) 28.9 % Pending (18.3-44.2) Charles % (Auto) 6.7 % Pending (2.6-8.5) Eos % (Auto) 2.9 % Pending (0-4.4) Baso % (Auto) 0.6 % Pending (0.2-1.2) Lymph # (Auto) 2.67 K/mm3 Pending (0.9-3.2) Charles # (Auto) 0.6 K/mm3 Pending (0.1-0.6) Eos # (Auto) 0.3 K/mm3 Pending (0-0.3) Baso # (Auto) 0.1 K/mm3 Pending (0.0-0.1) Abs Immat Gran (auto) 0.03 K/mm3 Pending (0.00-0.031) Absolute Neuts (auto) 5.6 K/mm3 Pending (1.3-6.7) Absolute Nucleated RBC 0.0 K/mm3 Pending (0.0-0.012) Nucleated RBC % 0.0 % Pending (0.0-0.2) Sodium 136 L mmol/L Pending (137-145) Potassium 4.2 mmol/L Pending (3.4-5.0) Chloride 102 mmol/L Pending (98-107) Carbon Dioxide 27 mmol/L Pending (22-30) Anion Gap 7 L mmol/L Pending (8-16) BUN 17 mg/dL Pending (9-20) Creatinine 1.00 mg/dL Pending (0.7-1.3) Estim Creat Clear Calc 39 ml/min Pending Estimated GFR > 60 Pending (59 - ) Glucose 1
[2022-10-18 08:11] LABS: Device NASAL CANNULA; Modified Allen's Test Pass; Site Drawn LEFT RADIAL
[2022-10-18 08:16] LABS: Lactic Acid Reflex 9.3 mmol/L (0.7-2.0)
[2022-10-18 08:17] LABS: Albumin Level 3.6 g/dL (3.5-5.1); Alkaline Phosphatase 120 U/L (38-126); Anion Gap 17 mmol/L (8-16); Bilirubin,Total 0.8 mg/dL (0.2-1.3); Blood Urea Nitrogen 21 mg/dL (9-20); CRP 5.3 mg/dL (<1.0); Calcium 8.3 mg/dL (8.4-10.2); Carbon Dioxide 17 mmol/L (22-30); Chloride 105 mmol/L (98-107); Estimated CRCL calculation 22 ml/min; Estimated Glomerular Filt Rate 34; Glucose 84 mg/dL (65-110); Potassium 4.1 mmol/L (3.4-5.0); Sodium 139 mmol/L (137-145)
[2022-10-18 08:18] LABS: Band Neutrophils Percent 37 % (0-6); Neutrophils Absolute Manual 5.67 K/mm3 (1.3-6.7); Neutrophils Percent Manual 49 % (46-73); Total Cells Counted 100
[2022-10-18 08:19] LABS: Anisocytosis 1+ (NORMAL); Lymphocytes Absolute Manual 0.33 K/mm3 (1.1-4.5); Lymphocytes Percent Manual 5 % (18-44); Metamyelocytes Percent 2 %; Myelocytes Percent 7 %; Platelet Estimate Adequate (Adequate)
[2022-10-18 08:20] LABS: Alanine Aminotransferase 45 U/L (6-50); Aspartate Amino Transferase 44 U/L (17-59); Schistocytes None Seen (NORMAL)
[2022-10-18 08:29] LABS: NT Pro B Type Natriuretic Pept 4880 pg/mL (19.9-100); Troponin I 0.052 ng/mL (0.000-0.034)
[2022-10-18] MEDS: LACTATED RINGERS 1,000 ML 30 ML IV CONT ×2 (08:50→10:16)
--- NOTE | 2022-10-18 09:06 | WPDURCON ---
Assessment and Plan Assessment and plan (1) Kidney stone on right side: Code(s): N20.0 - Calculus of kidney Status: Acute (2) Acute cystitis without hematuria: Code(s): N30.00 - Acute cystitis without hematuria Status: Acute Assessment and Plan: Cystoscopy with right ureteral stent placement today Right ESWL following thorough treatment of urinary tract infection Urology Consult Note HPI Date Seen: 10/18/22 Requesting Physician: Eleonora Dominguez MD Primary Care Provider: Ashwin Knott MD Consult Narrative Reason for consult: Right UPJ stone. Narrative: Power Ayers is a 87 year old male who is known to me with a history urethral stricture disease but not known to have urolithiasis in the past. He presented the emergency department with severe right flank pain radiating to his right lower quadrant. He denied fevers chills or gross hematuria. Evaluation, however, revealed urine that may have infection and a 8 mm right UPJ calculus. He is admitted for hydration analgesics and antibiotics and we will make arrangements for cysto with right ureteral stent placement. He is aware of the risks including, but not limited to, ureteral injury, need for additional procedures, hematuria and stent irritation. Review of Systems Cardiovascular: Cardiovascular: Denies chest pain, Denies lightheadedness, Denies palpitations and Denies dyspnea Respiratory: Respiratory: Denies dyspnea Gastrointestinal: Gastrointestinal: Denies diarrhea, Denies nausea and Denies vomiting Genitourinary: Genitourinary: Denies hematuria and Denies dysuria Endocrine: Endocrine: Denies palpitations [facility] Past Medical History Medical History Acute cystitis without hematuria Anxiety Arthritis CAD (coronary artery disease) Degenerative joint disease (DJD) of hip Depression Dizziness DJD (degenerative joint disease), lumbar Hearing loss HLD (hyperlipidemia) HTN (hypertension) Hx of myocardial infarction Left hip pain Left knee DJD Lumbar radiculopathy, chronic JARED (obstructive sleep apnea) Paget disease of bone Prostate cancer Rash Skin lesion Trochanteric bursitis, left hip Vision loss Surgical History Surgical History Status post carpal tunnel release Status post cataract extraction Status post right hip replacement Family History Family History Mother Family history of cardiovascular disease Sibling Family history of Parkinson's disease Family history of coronary artery disease Family history of malignant neoplasm of kidney Other Family history of arthritis Family history of malignant neoplasm Hypertension Social History Social History Social History: Smoking status: Never smoker Second hand tobacco smoke exposure: No Alcohol intake: never Substance use: never Substance use type: does not use Lack of Transportation: No Lack of Food: Never True Current Housing: I Have Housing Concerned About Future Housing: No Difficulty Paying Gas/Electric Bills: No Difficulty Paying for Meds: No Currently Unemployed: No Education: High School Diploma/GED Difficulty w/ Childcare or Family Care: No Living arrangements: with family Occupation/Education: retired Gender identity (if verbalized by the patient): Male Sexual Orientation (if Verbalized by the Patient): Straight or Heterosexual Spiritual care concerns: No Meds Home Medications and Allergies Home Medications Medication Instructions Recorded Confirmed Type aspirin 81 mg tablet,delayed 81 mg PO DAILY #90 tabs 12/25/21 10/17/22 Rx release atenolol 25 mg tablet 25 mg PO DAILY #90 tabs 12/25/21 10/17/22 Rx atorvastatin 40 mg tablet 40 mg PO DAILY #90 tabs 12/25/21
--- NOTE | 2022-10-18 09:09 | WPDHPUPDATE1 ---
History and Physical Update Update Date/Time: 10/18/22 09:09 History and Physical has been reviewed, including an updated exam of the patient. There are NO changes in the patient's condition. Risks, benefits, and alternatives have been discussed and questions answered. Patient agrees to proceed with procedure.
[2022-10-18] MEDS: ceFAZolin 2 GM/D5W 50 ML 2 GM/50 ML BAG IVPB (09:29)
--- NOTE | 2022-10-18 10:22 | W.PM.PROC2 ---
Procedure Note - Detailed Date of Procedure 10/18/22 Pre-op Diagnosis Right UPJ calculus with urinary tract infection Post-op Diagnosis Other (1. Obstructing 8 mm right proximal ureteral calculus 2. Tight bladder neck contracture) Procedure Performed 1. Cystoscopy with dilatation of bladder neck contracture 2. Cystoscopy with right retrograde pyelography 3. Right ureteral stent placement Surgeon Joseph David MD Anesthesia MAC Description of Procedure patient is brought the op suite he was prepped draped in routine sterile fashion while in a supine position. 2% xylocaine jelly was introduced intraurethrally and systemic sedation is administered per the anesthesia department. I attempted cystoscopy with a 16 F flexible cystoscope found a very tight bladder neck contracture. I placed a wire and dilated this over the wire from 8F to 22F with Amplatz dilators. Cystoscopy then showed an otherwise normal bladder without intravesical foreign body or neoplasm. A [place] catheter was used to obtain a right retrograde pyelogram and outlined the collecting system so as to ensure appropriate placement of a 4.8 F variable length stent with the proximal coil in the renal pelvis and distal coil in the bladder. Scope and wires were removed and he tolerated the procedure well. Urine Output 200 Drains No Packing No Pathology None sent Complications No immediate complications
[2022-10-18] MEDS: PHENYLEPHRINE 1,000 MCG/10 ML SYRINGE 100 MCG IV PUSH ×8 (10:29→11:09)
[2022-10-18 11:00] LABS: Reflex Lactic Acid Yes or No Add Lactic
[2022-10-18] MEDS: NOREPINEPHRINE 8 MG/D5W 250 ML 8 MG/250 ML BAG 9.38 MG IV CONT (11:10)
--- NOTE | 2022-10-18 11:14 | P.PCNANE_ITS ---
Anes - Cent Venous Cath Note Consent: I have discussed with the patient/family/POA, the non-emergent placement of a central venous catheter, including its clinical necessity/indication and associated potential risks and complications. The patient/family/POA understand(s) and acknowledge(s) the need to proceed with central venous catheter insertion as an important element of the patient's clinical management given emergent patient conditions, temporal constraints may have precluded informed consent. Time-Out: A pre-procedural Time-Out was completed immediately before starting the procedure and confirmed: Patient Identification, Site, Procedure, Patient Position and the Availability of Requisite Equipment. Procedure Note Patient position: trendelenburg Central venous catheter insertion site: right internal jugular CVC method of insertion: ultrasound-guided Hand hygiene/Aseptic technique: Hand hygiene procedures were performed. Aseptic technique was maintained throughout the procedure. Sterile barrier precautions: Maximal sterile barrier precautions, including use of a cap, mask, sterile gown, sterile gloves and a sterile full body drape. Site prep: chlorhexidine Skin anesthesia: 1% lidocaine [place]: 7 Lumen: 3 Length (cm): 15 cm Depth of insertion (cm): 15 Closure/Dressing: suture, biopatch and tegaderm Complications: None immediately noted/suspected. Chest X Ray: Ordered/review to follow. Procedure comments: Pt in recovery with urosepsis and need for pressors. Discussed with pt. RIJ triple lumen placed with u/s guidance. no complications CXR ordered.
[2022-10-18] MEDS: MEROPENEM 500 MG in SODIUM CHLORIDE 0.9% IV 100 ML 200 ML IVPB ×2 (12:07→20:14)
[2022-10-18] MEDS: LACTATED RINGERS 1,000 ML 100 ML IV CONT (12:10)
[2022-10-18] MEDS: polyethylene glycoL 3350 17 GM POWD.PACK PO (12:32)
[2022-10-18] MEDS: PARoxetine 20 MG TABLET 40 MG PO (12:32)
[2022-10-18] MEDS: LORATADINE 10 MG TABLET PO (12:33)
[2022-10-18] MEDS: DOCUSATE SODIUM 100 MG CAPSULE PO (12:34)
[2022-10-18] MEDS: ATORVASTATIN 40 MG TABLET PO (12:34)
[2022-10-18] MEDS: buPROPion HCL XL (24 HR) 150 MG TABCR PO (12:35)
[2022-10-18] MEDS: PANTOPRAZOLE 40 MG TABLET PO (12:35)
[2022-10-18 13:26] LABS: Lactic Acid 4.3 mmol/L (0.7-2.0)
--- NOTE | 2022-10-18 13:29 | WPDCNINT ---
Assessment and Plan Assessment and plan (1) Septic shock: Code(s): A41.9 - Sepsis, unspecified organism; R65.21 - Severe sepsis with septic shock Status: Acute Assessment and Plan: Septic shock likely related to pyelonephritis, right kidney stone -10/18: status post cystoscopy with dilatation of bladder neck contracture, cystoscopy with right retrograde pyelography, right ureteral stent placement -blood pressures were low in the OR and PACU, central line was inserted and patient was started on Levophed and transfer the ICU for further management -on meropenem and vancomycin (10/18) -blood in urine cultures have been obtained and pending -currently on Levophed will maintain MAP > 65 mmHg at all times for adequate end organ perfusion -initial lactic acid this morning was 9.3, 8 lactic acid is 4.3 -continue maintenance IV fluids -will give a small challenge of IV fluid bolus (2) Pyelonephritis: Code(s): N12 - Tubulo-interstitial nephritis, not specified as acute or chronic Status: Acute Assessment and Plan: Continue antibiotics and treatment as above (3) Kidney stone on right side: Code(s): N20.0 - Calculus of kidney Status: Acute Assessment and Plan: Patient has had 9 mm right UPJ stone 10/18: status post cystoscopy with dilatation of bladder neck contracture, cystoscopy with right retrograde pyelography, right ureteral stent placement -urology following the patient -right ESWL at a later date (4) HTN (hypertension): Code(s): I10 - Essential (primary) hypertension Status: Acute Assessment and Plan: Currently hold all antihypertensives as patient is on pressors (5) Chronic GERD: Code(s): K21.9 - Gastro-esophageal reflux disease without esophagitis Status: Acute Assessment and Plan: Continue Protonix (6) Acute kidney injury: Code(s): N17.9 - Acute kidney failure, unspecified Status: Acute Assessment and Plan: Patient with acute kidney injury likely related to hypotension UTI, kidney stone, pyelonephritis -patient received adequate amount of IV fluids, continue maintenance IV fluids -patient has a Pena catheter in place -monitor renal function, electrolytes and urine output closely Plan DVT prophylaxis: Heparin SQ Stress ulcer prophylaxis: Protonix Nutrition: Clear liquids advance as tolerated Code Status: Full code Critical Care Time Spent: 49 minutes Due to a high probability of clinically significant, life threatening deterioration, the patient required my highest level of preparedness to intervene emergently and I personally spent this critical care time directly and personally managing the patient. This critical care time included obtaining a history; examining the patient; pulse oximetry; ordering and review of studies; arranging urgent treatment with development of a management plan; evaluation of patient's response to treatment; frequent reassessment; and discussions with other providers. It was exclusive of separately billable procedures and treating other patients and teaching time. Please see Assessment and Plan section and the rest of the note for further information on patient assessment and treatment This dictation may have been done utilizing a voice recognition system. Attempts have been made to correct errors. However, there may be uncorrected grammatical, spelling, and recognitions errors present. Reamer Hand Consult Note Consult date: 10/18/22 Reason for consult: Septic shock, lactic acidosis, 10/18/2022 right UPJ cystoscopy with dilatation of the bladder neck contracture, cystoscopy with right retrograde pyelography, right ureteral stent placement, fevers HPI: Power Ayers is a 87 year old male past medical home acute cystitis, with history of kidney stones, coronary artery disease, degenerative joint disease, depression, hyperlipidemia, hypertension, history of myocardial infarction, prostate e
[2022-10-18 13:37] LABS: Troponin I 0.089 ng/mL (0.000-0.034)
[2022-10-18] MEDS: hetaSTARCH 6%/NACL 500 ML 250 ML IV CONT (14:45)
[2022-10-18] MEDS: CENTRAL LINE FLUSH 10 ML IV PUSH ×5 (14:46→22:42)
[2022-10-18] MEDS: SODIUM BICARBONATE 8.4% 50 MEQ/50 ML SYRINGE IV PUSH (14:46)
[2022-10-18] MEDS: ALBUMIN HUMAN 25% 25 GM/100 ML 100 ML IVPB (17:27)
[2022-10-18] MEDS: HEPARIN SODIUM 5,000 UNITS/ML VIAL 5000 UNITS SUB-Q (20:11)
[2022-10-19] VITALS (17 sets, daily range): BP systolic 86–114; BP diastolic 51–77; PULSE 89–96; RESP 11–21; TEMP 36.6–37.1; O2SAT 93–97
[2022-10-19] MEDS: ALBUMIN HUMAN 25% 25 GM/100 ML 100 ML IVPB ×3 (00:01→12:34)
[2022-10-19] MEDS: LACTATED RINGERS 1,000 ML 100 ML IV CONT ×2 (03:36→07:54)
[2022-10-19 04:44] LABS: Hemoglobin 9.7 g/dL (14.0-18.0); Immature Platelet Fraction Pct 13.2 % (0.9-11.2); Mean Corpuscular HGB Conc 33.4 g/dl (32-36); Mean Corpuscular Hemoglobin 28.5 pg (26-34); Mean Corpuscular Volume 85.3 fl (80-100); Mean Platelet Volume 12.2 fl (7.4-10.4); Platelet Count Result 101 k/mm3 (150-375); Red Cell Distribution Width 17.2 % (11.5-14.5); White Blood Count 29.6 K/mm3 (4.5-10.0)
[2022-10-19 05:08] LABS: Alanine Aminotransferase 32 U/L (6-50); Albumin Level 2.9 g/dL (3.5-5.1); Alkaline Phosphatase 59 U/L (38-126); Anion Gap 6 mmol/L (8-16); Aspartate Amino Transferase 106 U/L (17-59); Bilirubin,Total 0.7 mg/dL (0.2-1.3); Blood Urea Nitrogen 29 mg/dL (9-20); CRP 20.4 mg/dL (<1.0); Calcium 7.4 mg/dL (8.4-10.2); Carbon Dioxide 26 mmol/L (22-30); Chloride 106 mmol/L (98-107); Estimated CRCL calculation 28 ml/min; Estimated Glomerular Filt Rate 44; Glucose 57 mg/dL (65-110); Magnesium 1.6 mg/dL (1.6-2.3); Phosphorus 2.8 mg/dL (2.5-4.5); Potassium 3.7 mmol/L (3.4-5.0); Sodium 138 mmol/L (137-145)
[2022-10-19] MEDS: CENTRAL LINE FLUSH 10 ML IV PUSH ×3 (05:32→21:35)
[2022-10-19 05:44] LABS: Glucose Point of Care 73 mg/dl (65-105)
[2022-10-19 05:44] LABS: Glucose Point of Care 70 mg/dl (65-105)
[2022-10-19] MEDS: GLUCAGON FOR INJ 1 MG VIAL IM (05:56)
[2022-10-19 06:08] LABS: Band Neutrophils Percent 24 % (0-6); Lymphocytes Absolute Manual 1.48 K/mm3 (1.1-4.5); Lymphocytes Percent Manual 5 % (18-44); Neutrophils Absolute Manual 26.93 K/mm3 (1.3-6.7); Neutrophils Percent Manual 67 % (46-73); Total Cells Counted 100
[2022-10-19 06:09] LABS: Anisocytosis 1+ (NORMAL); Burr Cells 1+ (NORMAL); Metamyelocytes Percent 2 %; Monocytes Absolute Manual 0.59 K/mm3 (0.1-0.90); Monocytes Percent Manual 2 % (3-9); Ovalocytes 1+ (NORMAL); Platelet Estimate Decreased (Adequate)
[2022-10-19 06:10] LABS: Schistocytes None Seen (NORMAL)
[2022-10-19 06:37] LABS: Glucose Point of Care 133 mg/dl (65-105)
[2022-10-19] MEDS: NOREPINEPHRINE 8 MG/D5W 250 ML 8 MG/250 ML BAG 0.94 MG IV CONT (06:45)
--- NOTE | 2022-10-19 08:24 | WPDINTPN ---
Progress Note: A&P Assessment and Plan (1) Septic shock: Code(s): A41.9 - Sepsis, unspecified organism; R65.21 - Severe sepsis with septic shock Status: Acute Assessment and Plan: Septic shock likely related to pyelonephritis, right kidney stone -10/18: status post cystoscopy with dilatation of bladder neck contracture, cystoscopy with right retrograde pyelography, right ureteral stent placement -blood pressures were low in the OR and PACU, central line was inserted and patient was started on Levophed and transfer the ICU for further management -continue meropenem and vancomycin (10/18) -10/18 blood and urine cultures have been obtained and pending -wean Levophed will maintain MAP > 65 mmHg at all times for adequate end organ perfusion -initial lactic acid was 9.3 --> 4.3 -->2.0 this morning -will decrease maintenance fluids as he is on oral diet (2) Pyelonephritis: Code(s): N12 - Tubulo-interstitial nephritis, not specified as acute or chronic Status: Acute Assessment and Plan: Continue antibiotics and treatment as above (3) Kidney stone on right side: Code(s): N20.0 - Calculus of kidney Status: Acute Assessment and Plan: Patient has had 9 mm right UPJ stone 10/18: status post cystoscopy with dilatation of bladder neck contracture, cystoscopy with right retrograde pyelography, right ureteral stent placement -urology following the patient -right ESWL at a later date (4) HTN (hypertension): Qualifiers: Hypertension type: primary hypertension Qualified Code(s): I10 - Essential (primary) hypertension Code(s): I10 - Essential (primary) hypertension Status: Chronic Assessment and Plan: Currently hold all antihypertensives as patient is on pressors (5) Chronic GERD: Code(s): K21.9 - Gastro-esophageal reflux disease without esophagitis Status: Chronic Assessment and Plan: Continue Protonix (6) Acute kidney injury: Code(s): N17.9 - Acute kidney failure, unspecified Status: Acute Assessment and Plan: Patient with acute kidney injury likely related to hypotension UTI, kidney stone, pyelonephritis. -patient received adequate amount of IV fluids, continue maintenance IV fluids -patient has a Pena catheter in place with adequate urine output and improvement in creatinine and -monitor renal function, electrolytes and urine output closely Plan DVT prophylaxis: Heparin SQ Stress ulcer prophylaxis: Protonix Nutrition: Clear liquids advance as tolerated Code Status: Full code Critical Care Time Spent: 33 minutes 10/19/2022: Discussed with patient and his at bedside and updated them with patient's condition and plan of care. I explained to them that is blood pressure support medication is almost on the verge of being turned off, is creatinine is improving, he is receiving antibiotics. I told them that the blood and urine cultures are still pending and will updated them once it is reported. I answered all questions Due to a high probability of clinically significant, life threatening deterioration, the patient required my highest level of preparedness to intervene emergently and I personally spent this critical care time directly and personally managing the patient. This critical care time included obtaining a history; examining the patient; pulse oximetry; ordering and review of studies; arranging urgent treatment with development of a management plan; evaluation of patient's response to treatment; frequent reassessment; and discussions with other providers. It was exclusive of separately billable procedures and treating other patients and teaching time. Please see Assessment and Plan section and the rest of the note for further information on patient assessment and treatment This dictation may have been done utilizing a voice recognition system. Attempts have been made to correct errors. However, there may be
[2022-10-19] MEDS: LORATADINE 10 MG TABLET PO (08:53)
[2022-10-19] MEDS: ATORVASTATIN 40 MG TABLET PO (08:53)
[2022-10-19] MEDS: PARoxetine 20 MG TABLET 40 MG PO (08:53)
[2022-10-19] MEDS: PANTOPRAZOLE 40 MG TABLET PO (08:53)
[2022-10-19] MEDS: ASPIRIN 81 MG ENTERIC TABLET PO (08:53)
[2022-10-19] MEDS: buPROPion HCL XL (24 HR) 150 MG TABCR PO (08:53)
[2022-10-19] MEDS: DOCUSATE SODIUM 100 MG CAPSULE PO (08:54)
[2022-10-19] MEDS: MEROPENEM 500 MG in SODIUM CHLORIDE 0.9% IV 100 ML 200 ML IVPB (08:54)
[2022-10-19] MEDS: HEPARIN SODIUM 5,000 UNITS/ML VIAL 5000 UNITS SUB-Q ×2 (09:07→20:28)
--- NOTE | 2022-10-19 11:38 | PM.IMPN ---
Progress Note: A&P Assessment and Plan (1) Septic shock: Code(s): A41.9 - Sepsis, unspecified organism; R65.21 - Severe sepsis with septic shock Status: Acute Assessment and Plan: Septic shock likely related to pyelonephritis, right kidney stone 10/18: status post cystoscopy with dilatation of bladder neck contracture, cystoscopy with right retrograde pyelography, right ureteral stent placement blood pressures were low in the OR and PACU, central line was inserted and patient was started on Levophed and transfer the ICU for further management continue meropenem and vancomycin (10/18) 10/18 blood and urine cultures have been obtained and pending initial lactic acid was 9.3 --> 4.3 -->2.0 this morning will decrease maintenance fluids as he is on oral diet Weaned off Levophed this morning 10/19 (2) Pyelonephritis: Code(s): N12 - Tubulo-interstitial nephritis, not specified as acute or chronic Status: Acute Assessment and Plan: Continue antibiotics and treatment as above (3) Kidney stone on right side: Code(s): N20.0 - Calculus of kidney Status: Acute Assessment and Plan: Patient has had 9 mm right UPJ stone 10/18: status post cystoscopy with dilatation of bladder neck contracture, cystoscopy with right retrograde pyelography, right ureteral stent placement urology following the patient right ESWL at a later date (4) HTN (hypertension): Qualifiers: Hypertension type: primary hypertension Qualified Code(s): I10 - Essential (primary) hypertension Code(s): I10 - Essential (primary) hypertension Status: Chronic Assessment and Plan: Currently hold all antihypertensives as patient is on pressors (5) Chronic GERD: Code(s): K21.9 - Gastro-esophageal reflux disease without esophagitis Status: Chronic Assessment and Plan: Continue Protonix (6) Acute kidney injury: Code(s): N17.9 - Acute kidney failure, unspecified Status: Acute Assessment and Plan: Patient with acute kidney injury likely related to hypotension UTI, kidney stone, pyelonephritis. patient received adequate amount of IV fluids, continue maintenance IV fluids patient has a Pena catheter in place with adequate urine output and improvement in creatinine and monitor renal function, electrolytes and urine output closely Plan DVT prophylaxis with heparin GI prophylaxis with PPI Code status full code Subjective Date/time seen: 10/19/22 11:38 Interval history: 87-year-old male with history of kidney stones, hypertension and hyperlipidemia is presenting with a UTI another kidney stone. No overnight events noted. No chest pain or shortness of breath. No nausea, vomiting or diarrhea. No fevers or chills. Review of Systems Review of Systems: 12 point review of systems was assessed and was negative except as noted in the HPI Exam Narrative: General: No acute distress, alert and oriented per baseline HEENT: Atraumatic, normocephalic, mucous membranes moist CV: Regular rate and rhythm, S1, S2 Lungs: Clear to auscultation bilaterally, no rales or crackles noted, no wheezes, good air entry Abdomen: Soft, nontender, nondistended Extremities: Normal to inspection Skin: No rashes noted, no lesions or wounds seen Psych: Euthymic, normal affect Objective Data Vital Signs Vital Signs: Vital Signs - 24 hr 10/18/22 12:00 10/18/22 14:00 10/18/22 14:00 Temperature Pulse Rate 107 H 106 H 106 H Respiratory Rate 17 Blood Pressure 103/51 L Pulse Oximetry 94 Oxygen Delivery Oxygen Flow Rate 10/18/22 15:00 10/18/22 14:30 10/18/22 14:15 Temperature Pulse Rate 106 H 101 H 102 H Respiratory Rate 22 H 18 17 Blood Pressure 97/58 L 105/67 96/55 L Pulse Oximetry 94 93 93 Oxygen Delivery Oxygen Flow Rate 10/18/22 13:45 10/18/22 13:30 10/18/22 13:15 Temperature
--- NOTE | 2022-10-19 13:28 | P.PNIM_ITS ---
Progress Note: A&P Assessment and Plan (1) Septic shock: Code(s): A41.9 - Sepsis, unspecified organism; R65.21 - Severe sepsis with septic shock Status: Acute Assessment and Plan: Septic shock likely related to pyelonephritis, right kidney stone -10/18: status post cystoscopy with dilatation of bladder neck contracture, cystoscopy with right retrograde pyelography, right ureteral stent placement -blood pressures were low in the OR and PACU, central line was inserted and patient was started on Levophed and transfer the ICU for further management -continue meropenem and vancomycin (10/18) -10/18 blood and urine cultures have been obtained and pending -wean Levophed will maintain MAP > 65 mmHg at all times for adequate end organ perfusion -initial lactic acid was 9.3 --> 4.3 -->2.0 this morning -will decrease maintenance fluids as he is on oral diet (2) Pyelonephritis: Code(s): N12 - Tubulo-interstitial nephritis, not specified as acute or chronic Status: Acute Assessment and Plan: Continue antibiotics and treatment as above (3) Kidney stone on right side: Code(s): N20.0 - Calculus of kidney Status: Acute Assessment and Plan: Patient has had 9 mm right UPJ stone 10/18: status post cystoscopy with dilatation of bladder neck contracture, cystoscopy with right retrograde pyelography, right ureteral stent placement -urology following the patient -right ESWL at a later date (4) HTN (hypertension): Qualifiers: Hypertension type: primary hypertension Qualified Code(s): I10 - Essential (primary) hypertension Code(s): I10 - Essential (primary) hypertension Status: Chronic Assessment and Plan: Currently hold all antihypertensives as patient is on pressors (5) Chronic GERD: Code(s): K21.9 - Gastro-esophageal reflux disease without esophagitis Status: Chronic Assessment and Plan: Continue Protonix (6) Acute kidney injury: Code(s): N17.9 - Acute kidney failure, unspecified Status: Acute Assessment and Plan: Patient with acute kidney injury likely related to hypotension UTI, kidney stone, pyelonephritis. -patient received adequate amount of IV fluids, continue maintenance IV fluids -patient has a Pena catheter in place with adequate urine output and improvement in creatinine and -monitor renal function, electrolytes and urine output closely Plan DVT prophylaxis: Heparin SQ Stress ulcer prophylaxis: Protonix Nutrition: Clear liquids advance as tolerated Code Status: Full code Critical Care Time Spent: 33 minutes 10/19/2022: Discussed with patient and his at bedside and updated them with patient's condition and plan of care. I explained to them that is blood pressure support medication is almost on the verge of being turned off, is creatinine is improving, he is receiving antibiotics. I told them that the blood and urine cultures are still pending and will updated them once it is reported. I answered all questions Due to a high probability of clinically significant, life threatening deterioration, the patient required my highest level of preparedness to intervene emergently and I personally spent this critical care time directly and personally managing the patient. This critical care time included obtaining a history; examining the patient; pulse oximetry; ordering and review of studies; arranging urgent treatment with development of a management plan; evaluation of patient's response to treatment; frequent reassessment; and discussions with other providers. It was exclusive of [facility]
--- NOTE | 2022-10-19 13:28 | WPDUROPN2 ---
Progress Note: A&P Assessment and Plan (1) Acute kidney injury: Code(s): N17.9 - Acute kidney failure, unspecified Status: Acute (2) Pyelonephritis: Code(s): N12 - Tubulo-interstitial nephritis, not specified as acute or chronic Status: Acute (3) Septic shock: Code(s): A41.9 - Sepsis, unspecified organism; R65.21 - Severe sepsis with septic shock Status: Acute (4) Kidney stone on right side: Code(s): N20.0 - Calculus of kidney Status: Acute Plan s/p stent placement continue ICU supportive care. continue abx. E coli in urine outpt stone management with Dr David when UTI has cleared Subjective Subjective Date/Time Seen: 10/19/22 13:28 Interval history: feeling better. NAEO. tolerating diet, pain improved. prelim culture with e coli Review of Systems Constitutional: Constitutional: Reports as per HPI Eyes: Eyes: Reports as per HPI Respiratory: Respiratory: Reports no additional respiratory complaints Gastrointestinal: Gastrointestinal: Denies abdominal pain Genitourinary: Genitourinary: Reports no additional male genitourinary complaints Exam Const: General: comfortable HENMT: Face/Nose/Sinus: Normal nares present Eyes: General: appearance normal, both eyes and all related structures Sclera: sclerae normal Resp: Effort & Inspection: normal respiratory effort Cardio: Rate: regular rate GI: Inspection: non-distended : General: Yes bladder normal to palpation Objective Data Vital Signs Vital Signs: Vital Signs - 24 hr 10/18/22 14:00 10/18/22 14:00 10/18/22 15:00 Temperature Pulse Rate 106 H 106 H 106 H Respiratory Rate 17 22 H Blood Pressure 103/51 L 97/58 L Pulse Oximetry 94 94 Oxygen Delivery Oxygen Flow Rate 10/18/22 14:30 10/18/22 14:15 10/18/22 13:45 Temperature Pulse Rate 101 H 102 H 103 H Respiratory Rate 18 17 17 Blood Pressure 105/67 96/55 L 100/51 L Pulse Oximetry 93 93 95 Oxygen Delivery Oxygen Flow Rate 10/18/22 13:30 10/18/22 16:00 10/18/22 16:00 Temperature 37.2 C Pulse Rate 108 H 106 H 106 H Respiratory Rate 16 17 Blood Pressure 95/57 L 114/59 L Pulse Oximetry 94 95 Oxygen Delivery Oxygen Flow Rate 10/18/22 14:30 10/18/22 15:35 10/18/22 16:30 Temperature Pulse Rate 101 H 106 H 112 H Respiratory Rate Blood Pressure 105/67 108/57 L 118/63 Pulse Oximetry Oxygen Delivery Oxygen Flow Rate 10/18/22 16:40 10/18/22 16:00 10/18/22 18:00 Temperature Pulse Rate 109 H 106 H 112 H Respiratory Rate 17 25 H Blood Pressure 89/54 L 96/73 L Pulse Oximetry 95 94 Oxygen Delivery Nasal Cannula Oxygen Flow Rate 3 10/18/22 18:00 10/18/22 20:00 10/18/22 20:00 Temperature 37.0 C Pulse Rate 112 H 110 H Respiratory Rate 21 H Blood Pressure 96/73 L 104/69 Pulse Oximetry 94 94 Oxygen Delivery Nasal Cannula Oxygen Flow Rate 3 10/18/22 22:00 10/19/22 00:00 10/18/22 20:00 Temperature Pulse Rate 102 H 108 H Respiratory Rate 22 H Blood Pressure 104/69 104/69 Pulse Oximetry 93 95 Oxygen Delivery BiPAP Oxygen Flow Rate 10/18/22 21:30 10/18/22 23:15 10/18/22 23:30 Temperature Pulse Rate 104 H 93 95 Respiratory Rate Blood Pressure 112/67 100/60 89/60 L Pulse Oximetry Oxygen Delivery Oxygen Flow Rate 10/19/22 00:00 10/19/22 00:00 10/18/22 20:00 Temperature 36.8 C Pulse Rate 94 95 109 H Respiratory Rate 19 Blood Pressure 114/71 Pulse Oximetry 95 Oxygen Delivery Oxygen Flow Rate 10/19/22 01:45 10/19/22 02:00 10/19/22 04:00 Temperature Pulse Rate 93 90 Respiratory Rate 18 Blood Pressure 112/77 97/59 L Pulse Oximetry 96 Oxygen Delivery BiPAP Oxygen Flow Rate 10/19/22 04:00 10/19/22 04:00 10/19/22 04:15 Temperature 36.6 C Pulse Rate 90 90 89 Respiratory Rate 11 L Blood Pressure 98/61 L 109/58 L Pulse Oximetry 94 Oxygen Delivery Oxyge
[2022-10-19] MEDS: MEROPENEM 500 MG in SODIUM CHLORIDE 0.9% IV 100 ML IVPB (20:29)
[2022-10-20] VITALS (17 sets, daily range): BP systolic 118–139; BP diastolic 60–89; PULSE 83–95; RESP 12–23; TEMP 36.7–37.2; O2SAT 91–97
[2022-10-20 04:11] LABS: Basophils Percent Auto 0.1 % (0.2-1.2); Eosinophils Percent Auto 0.1 % (0-4.4); Hematocrit 29.4 % (42.0-52.0); Hemoglobin 9.9 g/dL (14.0-18.0); Immature Granulocyte Percent A 0.9 % (0-0.5); Immature Platelet Fraction Pct 15.2 % (0.9-11.2); Lymphocytes Absolute Auto 1.34 K/mm3 (0.9-3.2); Lymphocytes Percent Auto 4.1 % (18.3-44.2); Mean Corpuscular HGB Conc 33.7 g/dl (32-36); Mean Corpuscular Hemoglobin 28.5 pg (26-34); Mean Corpuscular Volume 84.7 fl (80-100); Mean Platelet Volume 11.5 fl (7.4-10.4); Neutrophils Absolute Auto 29.7 K/mm3 (1.3-6.7); Neutrophils Percent Auto 91.8 % (45.5-73.1); Platelet Count Result 98 k/mm3 (150-375); Red Blood Count 3.47 M/mm3 (4.6-6.20); Red Cell Distribution Width 17.5 % (11.5-14.5); White Blood Count 32.4 K/mm3 (4.5-10.0)
[2022-10-20 04:21] LABS: Lactic Acid Reflex 1.8 mmol/L (0.7-2.0)
[2022-10-20 04:25] LABS: Alanine Aminotransferase 28 U/L (6-50); Albumin Level 2.9 g/dL (3.5-5.1); Alkaline Phosphatase 76 U/L (38-126); Anion Gap 5 mmol/L (8-16); Aspartate Amino Transferase 72 U/L (17-59); Bilirubin,Total 0.8 mg/dL (0.2-1.3); Blood Urea Nitrogen 29 mg/dL (9-20); Calcium 7.5 mg/dL (8.4-10.2); Carbon Dioxide 25 mmol/L (22-30); Chloride 106 mmol/L (98-107); Estimated CRCL calculation 37 ml/min; Estimated Glomerular Filt Rate > 60; Glucose 90 mg/dL (65-110); Magnesium 1.8 mg/dL (1.6-2.3); Phosphorus 1.8 mg/dL (2.5-4.5); Potassium 3.4 mmol/L (3.4-5.0); Sodium 136 mmol/L (137-145)
[2022-10-20 04:36] LABS: CRP 19.8 mg/dL (<1.0)
[2022-10-20 04:39] LABS: Anisocytosis 1+ (NORMAL); Crenated RBC 1+ (NORMAL); Schistocytes None Seen (NORMAL)
[2022-10-20] MEDS: LACTATED RINGERS 1,000 ML 50 ML IV CONT (04:59)
[2022-10-20] MEDS: CENTRAL LINE FLUSH 10 ML IV PUSH ×3 (05:00→21:32)
[2022-10-20] MEDS: MAGNESIUM SULF 2 GM/WATER 50ML 2 GM/50 ML BAG IVPB (08:11)
[2022-10-20] MEDS: CEFEPIME 2 GM/NS 50 ML 2 GM/50 ML BAG IVPB (08:12)
[2022-10-20] MEDS: POTASSIUM/PHOSPHORUS/SODIUM 1.5 GM PACKET 1 PACKET PO (08:15)
[2022-10-20] MEDS: ASPIRIN 81 MG ENTERIC TABLET PO (08:16)
[2022-10-20] MEDS: ATORVASTATIN 40 MG TABLET PO (08:16)
[2022-10-20] MEDS: buPROPion HCL XL (24 HR) 150 MG TABCR PO (08:17)
[2022-10-20] MEDS: DOCUSATE SODIUM 100 MG CAPSULE PO (08:17)
[2022-10-20] MEDS: PANTOPRAZOLE 40 MG TABLET PO (08:18)
[2022-10-20] MEDS: LORATADINE 10 MG TABLET PO (08:18)
[2022-10-20] MEDS: polyethylene glycoL 3350 17 GM POWD.PACK PO (08:19)
[2022-10-20] MEDS: PARoxetine 20 MG TABLET 40 MG PO (08:19)
--- NOTE | 2022-10-20 08:29 | WPDINTPN ---
Progress Note: A&P Assessment and Plan (1) Septic shock: Code(s): A41.9 - Sepsis, unspecified organism; R65.21 - Severe sepsis with septic shock Status: Acute Assessment and Plan: Septic shock likely related to pyelonephritis, right kidney stone -10/18: status post cystoscopy with dilatation of bladder neck contracture, cystoscopy with right retrograde pyelography, right ureteral stent placement -blood pressures were low in the OR and PACU, central line was inserted and patient was started on Levophed and transfer the ICU for further management -10/18 blood negative x2 so far -10/18: In culture growing E coli -off Levophed -initial lactic acid was 9.3 --> 4.3 -->2.0 --> 1.8 this morning -will discontinue IV fluids -renal function back to normal -will have PT/OT evaluate the patient -10/18 continue vancomycin, will switch meropenem to cefepime (10/20) (2) Pyelonephritis: Code(s): N12 - Tubulo-interstitial nephritis, not specified as acute or chronic Status: Acute Assessment and Plan: Continue antibiotics and treatment as above (3) Kidney stone on right side: Code(s): N20.0 - Calculus of kidney Status: Acute Assessment and Plan: Patient has had 9 mm right UPJ stone 10/18: status post cystoscopy with dilatation of bladder neck contracture, cystoscopy with right retrograde pyelography, right ureteral stent placement -urology following the patient -right ESWL at a later date (4) HTN (hypertension): Qualifiers: Hypertension type: primary hypertension Qualified Code(s): I10 - Essential (primary) hypertension Code(s): I10 - Essential (primary) hypertension Status: Chronic Assessment and Plan: Currently hold all antihypertensives . Patient is came off pressors (5) Chronic GERD: Code(s): K21.9 - Gastro-esophageal reflux disease without esophagitis Status: Chronic Assessment and Plan: Continue Protonix (6) Acute kidney injury: Code(s): N17.9 - Acute kidney failure, unspecified Status: Acute Assessment and Plan: Patient with acute kidney injury likely related to hypotension UTI, kidney stone, pyelonephritis. -patient received adequate amount of IV fluids, continue maintenance IV fluids -patient has a Pena catheter in place with adequate urine output and creatinine has normalized -monitor renal function, electrolytes and urine output closely Plan DVT prophylaxis: Heparin SQ Stress ulcer prophylaxis: Protonix Nutrition: Clear liquids advance as tolerated Code Status: Full code Critical Care Time Spent: 32 minutes 10/20/2022: Discussed with patient and his at bedside and updated them with patient's condition and plan of care. I explained to them that is blood pressure support medication has been turned off. Kidney functions have normalized, he is receiving antibiotics for bacteria in the urine. I answered all questions Due to a high probability of clinically significant, life threatening deterioration, the patient required my highest level of preparedness to intervene emergently and I personally spent this critical care time directly and personally managing the patient. This critical care time included obtaining a history; examining the patient; pulse oximetry; ordering and review of studies; arranging urgent treatment with development of a management plan; evaluation of patient's response to treatment; frequent reassessment; and discussions with other providers. It was exclusive of separately billable procedures and treating other patients and teaching time. Please see Assessment and Plan section and the rest of the note for further information on patient assessment and treatment This dictation may have been done utilizing a voice recognition system. Attempts have been made to correct errors. However, there may be uncorrected grammatical, spelling, and recognitions errors present. Subjective Carlos Manuel
--- NOTE | 2022-10-20 09:08 | WPDUROPN2 ---
Progress Note: A&P Assessment and Plan (1) Acute kidney injury: Code(s): N17.9 - Acute kidney failure, unspecified Status: Acute (2) Pyelonephritis: Code(s): N12 - Tubulo-interstitial nephritis, not specified as acute or chronic Status: Acute (3) Septic shock: Code(s): A41.9 - Sepsis, unspecified organism; R65.21 - Severe sepsis with septic shock Status: Acute (4) Kidney stone on right side: Code(s): N20.0 - Calculus of kidney Status: Acute Plan s/p stent placement continue ICU supportive care. continue abx. E coli in urine outpt stone management with Dr David when UTI has cleared -ok to remove mckeon when out of ICU Subjective Subjective Date/Time Seen: 10/20/22 09:08 Interval history: NAEO. feels better tolerating mckeon. No f/c/cp/sob. no flank pain Review of Systems Constitutional: Constitutional: Reports as per HPI Eyes: Eyes: Reports as per HPI Respiratory: Respiratory: Reports no additional respiratory complaints Gastrointestinal: Gastrointestinal: Denies abdominal pain Genitourinary: Genitourinary: Reports no additional male genitourinary complaints Exam Const: General: comfortable HENMT: Face/Nose/Sinus: Normal nares present Eyes: General: appearance normal, both eyes and all related structures Sclera: sclerae normal Resp: Effort & Inspection: normal respiratory effort Cardio: Rate: regular rate GI: Inspection: non-distended : General: Yes bladder normal to palpation Urinary Catheter: Urinary Catheter: patent and draining and urine clear Objective Data Vital Signs Vital Signs: Vital Signs - 24 hr 10/19/22 10:00 10/19/22 12:00 10/19/22 12:00 Temperature 37.1 C Pulse Rate 90 90 Respiratory Rate 21 H 21 H Blood Pressure 86/51 L 104/54 L Pulse Oximetry 94 97 96 Oxygen Delivery Nasal Cannula Oxygen Flow Rate 3 10/19/22 14:00 10/19/22 12:00 10/19/22 10:00 Temperature Pulse Rate 93 89 91 Respiratory Rate 20 Blood Pressure 101/59 L Pulse Oximetry 95 Oxygen Delivery Oxygen Flow Rate 10/19/22 14:00 10/19/22 16:00 10/19/22 16:00 Temperature 36.9 C Pulse Rate 91 92 92 Respiratory Rate 18 Blood Pressure 102/73 Pulse Oximetry 94 Oxygen Delivery Oxygen Flow Rate 10/19/22 18:00 10/19/22 16:00 10/19/22 18:00 Temperature Pulse Rate 94 95 Respiratory Rate 21 H Blood Pressure 105/57 L Pulse Oximetry 94 93 Oxygen Delivery Nasal Cannula Oxygen Flow Rate 3 10/19/22 20:00 10/19/22 20:00 10/19/22 20:00 Temperature 37.0 C Pulse Rate 91 91 Respiratory Rate 20 Blood Pressure 96/67 L Pulse Oximetry 95 94 Oxygen Delivery Nasal Cannula Oxygen Flow Rate 3 10/19/22 22:00 10/19/22 22:00 10/20/22 00:00 Temperature 36.9 C 36.9 C Pulse Rate 96 96 94 Respiratory Rate 21 H 12 Blood Pressure 113/65 118/79 Pulse Oximetry 93 93 Oxygen Delivery Oxygen Flow Rate 10/20/22 00:00 10/20/22 00:00 10/20/22 02:00 Temperature Pulse Rate 94 93 Respiratory Rate Blood Pressure Pulse Oximetry 95 Oxygen Delivery Nasal Cannula Oxygen Flow Rate 3 10/20/22 02:00 10/20/22 04:00 10/20/22 04:00 Temperature Pulse Rate 93 94 Respiratory Rate 23 H Blood Pressure 127/73 Pulse Oximetry 95 93 Oxygen Delivery Nasal Cannula Oxygen Flow Rate 4 10/20/22 04:00 10/20/22 06:00 10/20/22 06:00 Temperature 37.2 C Pulse Rate 94 93 93 Respiratory Rate 22 H 22 H Blood Pressure 131/76 129/89 Pulse Oximetry 95 94 Oxygen Delivery Oxygen Flow Rate 10/20/22 08:00 Temperature 36.8 C Pulse Rate 91 Respiratory Rate 19 Blood Pressure 133/79 Pulse Oximetry 97 Oxygen Delivery Oxygen Flow Rate Intake/Output Intake/Output: Intake & Output 10/17/22 10/18/22 10/19/22 10/20/22 23:59 23:59 23:59 23:59 Intake Total 1000 2550 3820 1250 Output Total 613 004 8083 450 Balance 900 1625 2770 800 Meds/Resul
--- NOTE | 2022-10-20 11:47 | PM.IMPN ---
Progress Note: A&P Assessment and Plan (1) Septic shock: Code(s): A41.9 - Sepsis, unspecified organism; R65.21 - Severe sepsis with septic shock Status: Acute Assessment and Plan: Septic shock likely related to pyelonephritis, right kidney stone 10/18: status post cystoscopy with dilatation of bladder neck contracture, cystoscopy with right retrograde pyelography, right ureteral stent placement blood pressures were low in the OR and PACU, central line was inserted and patient was started on Levophed and transfer the ICU for further management started on meropenem and vancomycin blood and urine cultures have been obtained and pending Weaned off Levophed 10/19 10/20: d/c meropenem, start cefepime, cont vanc (2) Pyelonephritis: Code(s): N12 - Tubulo-interstitial nephritis, not specified as acute or chronic Status: Acute Assessment and Plan: Continue antibiotics and treatment as above (3) Kidney stone on right side: Code(s): N20.0 - Calculus of kidney Status: Acute Assessment and Plan: Patient has had 9 mm right UPJ stone 10/18: status post cystoscopy with dilatation of bladder neck contracture, cystoscopy with right retrograde pyelography, right ureteral stent placement urology following the patient right ESWL at a later date (4) HTN (hypertension): Qualifiers: Hypertension type: primary hypertension Qualified Code(s): I10 - Essential (primary) hypertension Code(s): I10 - Essential (primary) hypertension Status: Chronic Assessment and Plan: monitor blood pressures reviewed 10/20 off pressors (5) Chronic GERD: Code(s): K21.9 - Gastro-esophageal reflux disease without esophagitis Status: Chronic Assessment and Plan: Continue Protonix (6) Acute kidney injury: Code(s): N17.9 - Acute kidney failure, unspecified Status: Acute Assessment and Plan: Patient with acute kidney injury likely related to hypotension UTI, kidney stone, pyelonephritis. patient received adequate amount of IV fluids, continue maintenance IV fluids patient has a Pena catheter in place with adequate urine output and improvement in creatinine and monitor renal function, electrolytes and urine output closely Plan DVT prophylaxis with heparin GI prophylaxis with PPI Code status full code Subjective Date/time seen: 10/20/22 11:47 Interval history: 87-year-old male with history of kidney stones, hypertension and hyperlipidemia is presenting with a UTI another kidney stone. No overnight events noted. No chest pain or shortness of breath. No nausea, vomiting or diarrhea. No fevers or chills. States he feels better today. at bedside, all questions answered. Review of Systems Review of Systems: 12 point review of systems was assessed and was negative except as noted in the HPI Exam Narrative: General: No acute distress, alert and oriented per baseline HEENT: Atraumatic, normocephalic, mucous membranes moist CV: Regular rate and rhythm, S1, S2 Lungs: Clear to auscultation bilaterally, no rales or crackles noted, no wheezes, good air entry Abdomen: Soft, nontender, nondistended Extremities: Normal to inspection Skin: No rashes noted, no lesions or wounds seen Psych: Euthymic, normal affect Objective Data Vital Signs Vital Signs: Vital Signs - 24 hr 10/19/22 12:00 10/19/22 12:00 10/19/22 14:00 Temperature 98.8 F Pulse Rate 90 93 Respiratory Rate 21 H 20 Blood Pressure 104/54 L 101/59 L Pulse Oximetry 97 96 95 Oxygen Delivery Nasal Cannula Oxygen Flow Rate 3 10/19/22 12:00 10/19/22 14:00 10/19/22 16:00 Temperature 98.4 F Pulse Rate 89 91 92 Respiratory Rate 18 Blood Pressure 102/73 Pulse Oximetry 94 Oxygen Delivery Oxygen Flow Rate 10/19/22 16:00 10/19/22 18:00 10/19/22 16:00 Temperature Pulse Rate 92 94 Respiratory R
[2022-10-21] VITALS (50 sets, daily range): BP systolic 122–165; BP diastolic 70–91; PULSE 81–103; RESP 12–28; TEMP 35.9–37.2; O2SAT 91–98
[2022-10-21] MEDS: CENTRAL LINE FLUSH 10 ML IV PUSH ×4 (04:22→21:02)
[2022-10-21 04:59] LABS: Basophils Absolute Auto 0.2 K/mm3 (0.0-0.1); Basophils Percent Auto 0.6 % (0.2-1.2); Eosinophils Absolute Auto 0.1 K/mm3 (0-0.3); Eosinophils Percent Auto 0.4 % (0-4.4); Hemoglobin 9.9 g/dL (14.0-18.0); Immature Granulocyte Absolute 0.23 K/mm3 (0.00-0.031); Immature Granulocyte Percent A 0.8 % (0-0.5); Immature Platelet Fraction Pct 14.2 % (0.9-11.2); Lymphocytes Absolute Auto 1.53 K/mm3 (0.9-3.2); Lymphocytes Percent Auto 5.4 % (18.3-44.2); Mean Corpuscular Hemoglobin 27.7 pg (26-34); Mean Platelet Volume 12.2 fl (7.4-10.4); Monocytes Absolute Auto 1.2 K/mm3 (0.1-0.6); Monocytes Percent Auto 4.3 % (2.6-8.5); Neutrophils Absolute Auto 25.1 K/mm3 (1.3-6.7); Neutrophils Percent Auto 88.5 % (45.5-73.1); Platelet Count Result 102 k/mm3 (150-375); Red Blood Count 3.57 M/mm3 (4.6-6.20); Red Cell Distribution Width 17.2 % (11.5-14.5); White Blood Count 28.3 K/mm3 (4.5-10.0)
[2022-10-21 05:16] LABS: Alanine Aminotransferase 28 U/L (6-50); Albumin Level 2.9 g/dL (3.5-5.1); Alkaline Phosphatase 96 U/L (38-126); Anion Gap 6 mmol/L (8-16); Aspartate Amino Transferase 48 U/L (17-59); Bilirubin,Total 0.8 mg/dL (0.2-1.3); Blood Urea Nitrogen 26 mg/dL (9-20); Calcium 7.7 mg/dL (8.4-10.2); Carbon Dioxide 27 mmol/L (22-30); Chloride 107 mmol/L (98-107); Estimated CRCL calculation 45 ml/min; Estimated Glomerular Filt Rate > 60; Glucose 104 mg/dL (65-110); Phosphorus 1.9 mg/dL (2.5-4.5); Potassium 3.3 mmol/L (3.4-5.0); Sodium 140 mmol/L (137-145)
[2022-10-21 05:27] LABS: Anisocytosis 1+ (NORMAL); Burr Cells 1+ (NORMAL); Poikilocytosis 1+ (NORMAL); Schistocytes None Seen (NORMAL)
[2022-10-21] MEDS: CEFEPIME 2 GM/NS 50 ML 2 GM/50 ML BAG IVPB (09:26)
[2022-10-21] MEDS: ASPIRIN 81 MG ENTERIC TABLET PO (09:30)
[2022-10-21] MEDS: polyethylene glycoL 3350 17 GM POWD.PACK PO (09:30)
[2022-10-21] MEDS: PARoxetine 20 MG TABLET 40 MG PO (09:30)
[2022-10-21] MEDS: PANTOPRAZOLE 40 MG TABLET PO (09:30)
[2022-10-21] MEDS: LORATADINE 10 MG TABLET PO (09:30)
[2022-10-21] MEDS: buPROPion HCL XL (24 HR) 150 MG TABCR PO (09:30)
[2022-10-21] MEDS: DOCUSATE SODIUM 100 MG CAPSULE PO (09:30)
[2022-10-21] MEDS: ATORVASTATIN 40 MG TABLET PO (09:31)
[2022-10-21 10:15] LABS: Vancomycin Trough 6.4 ug/mL (10.0-20.0)
--- NOTE | 2022-10-21 10:34 | PM.IMPN ---
Progress Note: A&P Assessment and Plan (1) Septic shock: Code(s): A41.9 - Sepsis, unspecified organism; R65.21 - Severe sepsis with septic shock Status: Acute Assessment and Plan: Septic shock likely related to pyelonephritis, right kidney stone 10/18: status post cystoscopy with dilatation of bladder neck contracture, cystoscopy with right retrograde pyelography, right ureteral stent placement, blood pressures were low in the OR and PACU, central line was inserted and patient was started on Levophed and transfer the ICU for further management, vanc + meropenem 10/19: Weaned off Levophed 10/20: d/c meropenem, start cefepime, cont vanc 10/21: leuk improving, down to 28 from 32 on vanc + cefepime. check CRP + PCT. urine culture came back ecoli, sens zosyn, rocephin and augmentin. will de-escalate abx to rocephin 2g for now, blood cx NGTD, and anticipate augmentin at d/c to complete a 10-14 day course, defer to urology for outpatient management. (2) Acute kidney injury: Code(s): N17.9 - Acute kidney failure, unspecified Status: Acute Assessment and Plan: Patient with acute kidney injury likely related to hypotension UTI, kidney stone, pyelonephritis. 10/21: creatinine continues to improve, good UOP, pull mckeon today and monitor (3) Kidney stone on right side: Code(s): N20.0 - Calculus of kidney Status: Acute Assessment and Plan: Patient has had 9 mm right UPJ stone 10/18: status post cystoscopy with dilatation of bladder neck contracture, cystoscopy with right retrograde pyelography, right ureteral stent placement urology following the patient right ESWL at a later date (4) Pyelonephritis: Code(s): N12 - Tubulo-interstitial nephritis, not specified as acute or chronic Status: Acute Assessment and Plan: Continue antibiotics and treatment as above (5) HTN (hypertension): Qualifiers: Hypertension type: primary hypertension Qualified Code(s): I10 - Essential (primary) hypertension Code(s): I10 - Essential (primary) hypertension Status: Chronic Assessment and Plan: monitor blood pressures reviewed 10/21 off pressors (6) Chronic GERD: Code(s): K21.9 - Gastro-esophageal reflux disease without esophagitis Status: Chronic Assessment and Plan: Continue Protonix Plan DVT prophylaxis with heparin GI prophylaxis with PPI Code status full code Subjective Date/time seen: 10/21/22 10:34 Interval history: 87-year-old male with history of kidney stones, hypertension and hyperlipidemia is presenting with a UTI another kidney stone. No overnight events noted. No chest pain or shortness of breath. No nausea, vomiting or diarrhea. No fevers or chills. States he feels much better today, eager to go home. at bedside, all questions answered. Review of Systems Review of Systems: 12 point review of systems was assessed and was negative except as noted in the HPI Exam Narrative: General: No acute distress, alert and oriented per baseline HEENT: Atraumatic, normocephalic, mucous membranes moist CV: Regular rate and rhythm, S1, S2 Lungs: Clear to auscultation bilaterally, no rales or crackles noted, no wheezes, good air entry Abdomen: Soft, nontender, nondistended Extremities: Normal to inspection Skin: No rashes noted, no lesions or wounds seen Psych: Euthymic, normal affect Objective Data Vital Signs Vital Signs: Vital Signs - 24 hr 10/20/22 12:00 10/20/22 12:00 10/20/22 12:00 Temperature Pulse Rate 88 92 Respiratory Rate 21 H Blood Pressure 126/60 Pulse Oximetry 95 94 Oxygen Delivery Nasal Cannula Oxygen Flow Rate 2 10/20/22 14:00 10/20/22 16:00 10/20/22 16:00 Temperature Pulse Rate 92 88 Respiratory Rate Blood Pressure Pulse Oximetry 96 Oxygen Delivery Nasal Cannula Oxygen Flow Rate 2 10/20/22 16:20 05
[2022-10-21] MEDS: cefTRIAXone 2 GM/NS 100 ML 2 GM/100 ML BAG IVPB (11:53)
[2022-10-21 13:04] LABS: Hematocrit 31.3 % (42.0-52.0); Hemoglobin 10.4 g/dL (14.0-18.0); Mean Corpuscular HGB Conc 33.2 g/dl (32-36); Mean Corpuscular Hemoglobin 28.2 pg (26-34); Mean Corpuscular Volume 84.8 fl (80-100); Platelet Count Result 105 k/mm3 (150-375); Red Blood Count 3.69 M/mm3 (4.6-6.20); Red Cell Distribution Width 17.7 % (11.5-14.5); White Blood Count 24.5 K/mm3 (4.5-10.0)
[2022-10-21 13:11] LABS: Lactic Acid Reflex 1.9 mmol/L (0.7-2.0)
[2022-10-21 13:16] LABS: CRP 7.3 mg/dL (<1.0)
--- NOTE | 2022-10-21 13:26 | PC.NURSE ---
This patient, Power Ayers, was received from [icu 2] on 10/21/22 at 1315. Patient/family oriented to unit policies and routines. Report from carley
[2022-10-21 13:58] LABS: Procalcitonin 14.2 ng/mL
[2022-10-21 15:12] LABS: Band Neutrophils Percent 3 % (0-6); Lymphocytes Absolute Manual 1.96 K/mm3 (1.1-4.5); Monocytes Absolute Manual 0.98 K/mm3 (0.1-0.90); Monocytes Percent Manual 4 % (3-9); Neutrophils Absolute Manual 21.56 K/mm3 (1.3-6.7); Neutrophils Percent Manual 85 % (46-73); Total Cells Counted 100
[2022-10-21 15:13] LABS: Platelet Estimate Decreased (Adequate); Schistocytes None Seen (NORMAL)
[2022-10-21 15:14] LABS: Anisocytosis 2+ (NORMAL)
--- NOTE | 2022-10-21 15:44 | WPDUROPN2 ---
Progress Note: A&P Assessment and Plan (1) Pyelonephritis: Code(s): N12 - Tubulo-interstitial nephritis, not specified as acute or chronic Status: Acute Assessment and Plan: Continue IV antibiotics. Will likely require a long course of oral antibiotics s/p discharge. Will plan to repeat a urine culture prior to definitive stone treatment in the office next week. (2) Acute kidney injury: Code(s): N17.9 - Acute kidney failure, unspecified Status: Acute Assessment and Plan: Resolved, creatinine is 0.9. Ok to discharge home when stable per Urology. (3) Septic shock: Code(s): A41.9 - Sepsis, unspecified organism; R65.21 - Severe sepsis with septic shock Status: Acute Assessment and Plan: Improving, patient moved out of ICU. (4) Kidney stone on right side: Code(s): N20.0 - Calculus of kidney Status: Acute Assessment and Plan: KUB ordered today s/p stent placement for surgical planning. Patient will have definitive stone management once infection resolves as an outpatient. Subjective Subjective Date/Time Seen: 10/21/22 15:44 The patient is doing much better today. He has been moved out of the ICU to the medicine floor. His mckeon was removed and he is urinating well on his own. He denies severe flank pain, dysuria or hematuria. He is s/p Cystoscopy with dilation of bladder neck contracture, right stent placement, right retrograde pyelogram with Dr. David on 10/18/22. His CT on 10/17 shows a 9mm right UPJ stone and bladder wall thickening. His urine culture is positive for E-Coli and he remains on culture sensitive antibiotics with a WBC of 28.3 that is trending down. He is tachycardic, but up to chair. Post Op day: 3 Review of Systems Cardiovascular: Cardiovascular: Denies chest pain Respiratory: Respiratory: Reports no additional respiratory complaints Gastrointestinal: Gastrointestinal: Denies abdominal pain, Denies nausea and Denies vomiting Genitourinary: Genitourinary: Denies hematuria, Denies genital pain, Denies dysuria, Denies flank pain and Denies urinary urgency Exam Const: General: comfortable Resp: Effort & Inspection: normal respiratory effort Cardio: Rate: regular rate GI: GI Palp: Yes Soft to palpation and No Tenderness to palpation present (GI) : General: Yes no CVA tenderness Objective Data Vital Signs Vital Signs: Vital Signs - 24 hr 10/20/22 16:00 10/20/22 16:00 10/20/22 16:20 Temperature 98.0 F Pulse Rate 88 83 Respiratory Rate 18 Blood Pressure 125/69 Pulse Oximetry 96 96 Oxygen Delivery Nasal Cannula Oxygen Flow Rate 2 10/20/22 18:00 10/20/22 20:00 10/20/22 20:00 Temperature Pulse Rate 95 90 90 Respiratory Rate 21 H Blood Pressure 130/83 Pulse Oximetry 94 Oxygen Delivery Oxygen Flow Rate 10/20/22 20:00 10/20/22 22:00 10/21/22 00:00 Temperature Pulse Rate 90 Respiratory Rate Blood Pressure Pulse Oximetry 94 93 Oxygen Delivery Nasal Cannula Nasal Cannula Oxygen Flow Rate 2 2 10/21/22 00:00 10/21/22 00:00 10/21/22 02:00 Temperature 98.5 F Pulse Rate 91 91 89 Respiratory Rate 19 Blood Pressure 128/71 Pulse Oximetry 93 Oxygen Delivery Oxygen Flow Rate 10/21/22 04:00 10/21/22 04:00 10/21/22 04:00 Temperature 99 F Pulse Rate 92 92 Respiratory Rate 19 Blood Pressure 122/74 Pulse Oximetry 95 95 Oxygen Delivery Nasal Cannula Oxygen Flow Rate 2 10/21/22 06:00 10/21/22 10:00 10/21/22 08:00 Temperature Pulse Rate 103 H 85 86 Respiratory Rate Blood Pressure Pulse Oximetry Oxygen Delivery Oxygen Flow Rate 10/20/22 23:15 10/20/22 23:30 10/20/22 23:45 Temperature Pulse Rate 93 91 92 Respiratory Rate 23 H 13 12 Blood Pressure Pulse Oximetry 96 95 95 Oxygen Delivery Oxygen Flow Rate 10/21/22 00:00 10/21/22 00:01 10/21/22 00:15 Temperature Pulse Rate 88 88 92 R
[2022-10-22 05:15] VITALS: BP 162/92; PULSE 94; RESP 20; TEMP 36.6; O2SAT 93
[2022-10-22] MEDS: CENTRAL LINE FLUSH 10 ML IV PUSH (06:31)
[2022-10-22] MEDS: ASPIRIN 81 MG ENTERIC TABLET PO (09:07)
[2022-10-22] MEDS: PARoxetine 20 MG TABLET 40 MG PO (09:07)
[2022-10-22] MEDS: buPROPion HCL XL (24 HR) 150 MG TABCR PO (09:07)
[2022-10-22] MEDS: LORATADINE 10 MG TABLET PO (09:07)
[2022-10-22] MEDS: DOCUSATE SODIUM 100 MG CAPSULE PO (09:07)
[2022-10-22] MEDS: PANTOPRAZOLE 40 MG TABLET PO (09:07)
[2022-10-22] MEDS: ATORVASTATIN 40 MG TABLET PO (09:07)
[2022-10-22] MEDS: polyethylene glycoL 3350 17 GM POWD.PACK PO (09:08)
--- NOTE | 2022-10-22 10:52 | PM.IMPN ---
Progress Note: A&P Assessment and Plan (1) Septic shock: Code(s): A41.9 - Sepsis, unspecified organism; R65.21 - Severe sepsis with septic shock Status: Acute Assessment and Plan: Septic shock likely related to pyelonephritis, right kidney stone 10/18: status post cystoscopy with dilatation of bladder neck contracture, cystoscopy with right retrograde pyelography, right ureteral stent placement, blood pressures were low in the OR and PACU, central line was inserted and patient was started on Levophed and transfer the ICU for further management, vanc + meropenem 10/19: Weaned off Levophed 10/20: d/c meropenem, start cefepime, cont vanc 10/21: leuk improving, down to 28 from 32 on vanc + cefepime. check CRP + PCT. urine culture came back ecoli, sens zosyn, rocephin and augmentin. will de-escalate abx to rocephin 2g for now, blood cx NGTD, and anticipate augmentin at d/c to complete a 10-14 day course, defer to urology for outpatient management. (2) Acute kidney injury: Code(s): N17.9 - Acute kidney failure, unspecified Status: Acute Assessment and Plan: Patient with acute kidney injury likely related to hypotension UTI, kidney stone, pyelonephritis. 10/21: creatinine continues to improve, good UOP, pull mckeon today and monitor (3) Kidney stone on right side: Code(s): N20.0 - Calculus of kidney Status: Acute Assessment and Plan: Patient has had 9 mm right UPJ stone 10/18: status post cystoscopy with dilatation of bladder neck contracture, cystoscopy with right retrograde pyelography, right ureteral stent placement urology following the patient right ESWL at a later date (4) Pyelonephritis: Code(s): N12 - Tubulo-interstitial nephritis, not specified as acute or chronic Status: Acute Assessment and Plan: Continue antibiotics and treatment as above (5) HTN (hypertension): Qualifiers: Hypertension type: primary hypertension Qualified Code(s): I10 - Essential (primary) hypertension Code(s): I10 - Essential (primary) hypertension Status: Chronic Assessment and Plan: monitor blood pressures reviewed 10/21 off pressors (6) Chronic GERD: Code(s): K21.9 - Gastro-esophageal reflux disease without esophagitis Status: Chronic Assessment and Plan: Continue Protonix Plan DVT prophylaxis with heparin GI prophylaxis with PPI Code status full code Subjective Date/time seen: 10/22/22 10:52 Interval history: 87-year-old male with history of kidney stones, hypertension and hyperlipidemia is presenting with a UTI another kidney stone. No overnight events noted. No chest pain or shortness of breath. No nausea, vomiting or diarrhea. No fevers or chills. States he feels much better today, eager to go home. at bedside, all questions answered. Review of Systems Review of Systems: 12 point review of systems was assessed and was negative except as noted in the HPI Exam Narrative: General: No acute distress, alert and oriented per baseline HEENT: Atraumatic, normocephalic, mucous membranes moist CV: Regular rate and rhythm, S1, S2 Lungs: Clear to auscultation bilaterally, no rales or crackles noted, no wheezes, good air entry Abdomen: Soft, nontender, nondistended Extremities: Normal to inspection Skin: No rashes noted, no lesions or wounds seen Psych: Euthymic, normal affect Objective Data Vital Signs Vital Signs: Vital Signs - 24 hr 10/21/22 11:32 10/21/22 12:00 10/21/22 13:35 Temperature 98.0 F 96.7 F L Pulse Rate 88 Respiratory Rate 18 Blood Pressure 140/75 124/70 Pulse Oximetry 96 Oxygen Delivery Room Air 10/21/22 21:08 10/21/22 20:00 10/22/22 05:15 Temperature 97.7 F 98 F Pulse Rate 99 94 Respiratory Rate 16 20 Blood Pressure 165/91 H 162/92 H Pulse Oximetry 96 93 Oxygen Delivery Room Air Intake/Output Intake/Out
--- NOTE | 2022-10-22 10:56 | PM.DS ---
DS: Admitting Diagnosis Discharge Date 10/22/22 Admitting Diagnosis flank pain DS: Discharge Diagnosis Discharge Diagnosis (1) Septic shock: Code(s): A41.9 - Sepsis, unspecified organism; R65.21 - Severe sepsis with septic shock Status: Acute Assessment and Plan: Septic shock likely related to pyelonephritis, right kidney stone 10/18: status post cystoscopy with dilatation of bladder neck contracture, cystoscopy with right retrograde pyelography, right ureteral stent placement, blood pressures were low in the OR and PACU, central line was inserted and patient was started on Levophed and transfer the ICU for further management, vanc + meropenem 10/19: Weaned off Levophed 10/20: d/c meropenem, start cefepime, cont vanc 10/21: leuk improving, down to 28 from 32 on vanc + cefepime. check CRP + PCT. urine culture came back ecoli, sens zosyn, rocephin and augmentin. will de-escalate abx to rocephin 2g for now, blood cx NGTD, and anticipate augmentin at d/c to complete a 10-14 day course, defer to urology for outpatient management. (2) Acute kidney injury: Code(s): N17.9 - Acute kidney failure, unspecified Status: Acute Assessment and Plan: Patient with acute kidney injury likely related to hypotension UTI, kidney stone, pyelonephritis. 10/21: creatinine continues to improve, good UOP, pull mckeon today and monitor (3) Kidney stone on right side: Code(s): N20.0 - Calculus of kidney Status: Acute Assessment and Plan: Patient has had 9 mm right UPJ stone 10/18: status post cystoscopy with dilatation of bladder neck contracture, cystoscopy with right retrograde pyelography, right ureteral stent placement urology following the patient right ESWL at a later date (4) Pyelonephritis: Code(s): N12 - Tubulo-interstitial nephritis, not specified as acute or chronic Status: Acute Assessment and Plan: Continue antibiotics and treatment as above (5) HTN (hypertension): Qualifiers: Hypertension type: primary hypertension Qualified Code(s): I10 - Essential (primary) hypertension Code(s): I10 - Essential (primary) hypertension Status: Chronic Assessment and Plan: monitor blood pressures reviewed 10/21 off pressors (6) Chronic GERD: Code(s): K21.9 - Gastro-esophageal reflux disease without esophagitis Status: Chronic Assessment and Plan: Continue Protonix Plan DVT prophylaxis with heparin GI prophylaxis with PPI Code status full code DS: Summary Hospital Course Hospital Course: 87-year-old male with history of kidney stones, hypertension and hyperlipidemia is presenting with a UTI another kidney stone. Neurology was consulted and performed cystoscopy with right ureteral stent 10/18. They also recommend a right ESWL after UTI resolves on an outpatient basis. Patient experienced significant septic shock from pyelonephritis and right kidney stone was transferred to the ICU for pressors. Symptoms improved significantly and he was stable to be moved back to the floor and improved on Rocephin. He did experience acute kidney injury, this resolved gentle IV fluid hydration. Please see above and med rec for details. Time Spent with Patient Time attestation: Total time spent providing and/or coordinating discharge services: Exam Narrative: General: No acute distress, alert and oriented per baseline HEENT: Atraumatic, normocephalic, mucous membranes moist CV: Regular rate and rhythm, S1, S2 Lungs: Clear to auscultation bilaterally, no rales or crackles noted, no wheezes, good air entry Abdomen: Soft, nontender, nondistended Extremities: Normal to inspection Skin: No rashes noted, no lesions or wounds seen Psych: Euthymic, normal affect DS: Data Data Completed and Pending Labs on day of discharge: Labs from last 24 hours 10/21/22 12:55 WBC 24.5 H RBC 3.69 L Hg
[2022-10-22] MEDS: cefTRIAXone 2 GM/NS 100 ML 2 GM/100 ML BAG IVPB (12:20)
[2022-10-22 13:51] VITALS: BP 149/82; PULSE 85; RESP 20; TEMP 35.8; O2SAT 97
[2022-10-22 15:59] LABS: Basophils Absolute Auto 0.1 K/mm3 (0.0-0.1); Basophils Percent Auto 0.6 % (0.2-1.2); Eosinophils Absolute Auto 0.3 K/mm3 (0-0.3); Hematocrit 32.2 % (42.0-52.0); Hemoglobin 10.7 g/dL (14.0-18.0); Immature Granulocyte Absolute 0.22 K/mm3 (0.00-0.031); Immature Granulocyte Percent A 1.5 % (0-0.5); Lymphocytes Absolute Auto 1.76 K/mm3 (0.9-3.2); Lymphocytes Percent Auto 12.2 % (18.3-44.2); Mean Corpuscular HGB Conc 33.2 g/dl (32-36); Mean Corpuscular Hemoglobin 27.9 pg (26-34); Mean Corpuscular Volume 83.9 fl (80-100); Mean Platelet Volume 12.1 fl (7.4-10.4); Monocytes Absolute Auto 2.2 K/mm3 (0.1-0.6); Monocytes Percent Auto 15.1 % (2.6-8.5); Neutrophils Absolute Auto 9.9 K/mm3 (1.3-6.7); Neutrophils Percent Auto 68.6 % (45.5-73.1); Platelet Count Result 104 k/mm3 (150-375); Red Blood Count 3.84 M/mm3 (4.6-6.20); Red Cell Distribution Width 17.5 % (11.5-14.5); White Blood Count 14.4 K/mm3 (4.5-10.0)
[2022-10-22 17:06] LABS: Alanine Aminotransferase 29 U/L (6-50); Albumin Level 3.1 g/dL (3.5-5.1); Alkaline Phosphatase 101 U/L (38-126); Anion Gap 5 mmol/L (8-16); Aspartate Amino Transferase 32 U/L (17-59); Bilirubin,Total 0.7 mg/dL (0.2-1.3); Blood Urea Nitrogen 20 mg/dL (9-20); Calcium 7.7 mg/dL (8.4-10.2); Carbon Dioxide 27 mmol/L (22-30); Chloride 106 mmol/L (98-107); Estimated CRCL calculation 57 ml/min; Estimated Glomerular Filt Rate > 60; Glucose 103 mg/dL (65-110); Potassium 3.5 mmol/L (3.4-5.0); Sodium 138 mmol/L (137-145)
[2022-10-22] MEDS: NEOMYCIN/POLYMYXIN/BACITRACIN OINTMENT PACKET 2 PACKET (18:18)
== END 2022-10-22 18:10 | disposition home health service (06) | DRG 871 ==
LOC: ANHED 19:50 → ANH2MED 21:56 → ANHICU 10-18 13:11 → ANH3MEDSUR 10-22 10:56 → ANH2MED 10-23 14:13 → ANH3MEDSUR 10-23 14:13 → ANHICU 10-23 14:13
PROVIDERS: Internal Medicine; Nurse Practitioner Family; Urology; Admitting Provider Internal Medicine; Emergency Provider Emergency Medicine; PCP Family Medicine; Visit Provider Student in an Organized Health Care Education/Training Program
PROC: 0T9680Z Drainage of Right Ureter with Drainage Device, Via Natural or Artificial Opening Endoscopic (ICD-10-PCS; CPT 52352; principal; 2022-10-18 15:00)
DX: A41.9 Sepsis, unspecified organism (principal); R65.21 Severe sepsis with septic shock; N17.9 Acute kidney failure, unspecified; N20.1 Calculus of ureter; N10 Acute pyelonephritis; E87.20 Acidosis, unspecified; I25.10 Atherosclerotic heart disease of native coronary artery without angina pectoris; I10 Essential (primary) hypertension; N40.1 Benign prostatic hyperplasia with lower urinary tract symptoms; R33.8 Other retention of urine; C61 Malignant neoplasm of prostate; E78.5 Hyperlipidemia, unspecified; N32.0 Bladder-neck obstruction; B96.20 Unspecified Escherichia coli [E. coli] as the cause of diseases classified elsewhere; K21.9 Gastro-esophageal reflux disease without esophagitis; M16.9 Osteoarthritis of hip, unspecified; M17.12 Unilateral primary osteoarthritis, left knee; M47.26 Other spondylosis with radiculopathy, lumbar region; M88.9 Osteitis deformans of unspecified bone; G47.33 Obstructive sleep apnea (adult) (pediatric); F41.9 Anxiety disorder, unspecified; F32.A Depression, unspecified; Z96.641 Presence of right artificial hip joint; I25.2 Old myocardial infarction; Z87.442 Personal history of urinary calculi; Z79.82 Long term (current) use of aspirin
CPT/HCPCS: 36415; 36600; 71045; 74018; 74176; 80053; 80202; 81001; 82375; 82805; 82948; 83050; 83605; 83735; 83880; 84100; 84145; 84484; 85025; 85055; 86140; 87040; 87077; 87086; 87186; 93005; 93306; 96361; 96365; 96375; 96376; 97110; 97116; 97161; 97165; 97530; 97535; 99285; A9270; C1726; C1769; C2617; G0378; J0131; J0690; J0692; J0696; J1100; J1610; J1644; J2185; J2370; J2405; J2704; J3010; J3370; J3475; J7030; J7120; J7121; P9047

== ENCOUNTER 2022-10-31 00:57 | Day surgery (SDC) | payer MEDICARE, OTHER, SELFPAY ==
--- NOTE | 2022-10-28 07:32 | PM.HPGS ---
History of Present Illness History of Present Illness Consent: Risks, benefits, and alternatives have been discussed and questions answered. Patient agrees to proceed with procedure. Chief complaint: Right Ureteral Stone Narrative: Power Ayers is a 87 year old male recently admitted with urinary tract infection and an 8 mm right proximal ureteral stone. This stone is difficult to see on KUB, since the noncalcified. After discussion of options he has elected proceed with cystoscopy with right ureteroscopy and stone extraction, possible laser lithotripsy, retrograde pyelogram and stent placement. He is aware the risks including, but not limited to, ureteral injury, need to replace the stent, need for additional procedures and postoperative hematuria. Review of Systems Review of Systems: All systems reviewed & are unremarkable except as noted in HPI and below PMFSH Past Medical History Medical History Acute cystitis without hematuria Anxiety Arthritis CAD (coronary artery disease) Degenerative joint disease (DJD) of hip Depression Dizziness DJD (degenerative joint disease), lumbar Hearing loss HLD (hyperlipidemia) HTN (hypertension) Hx of myocardial infarction Left hip pain Left knee DJD Lumbar radiculopathy, chronic JARED (obstructive sleep apnea) Paget disease of bone Prostate cancer Rash Skin lesion Trochanteric bursitis, left hip Vision loss Surgical History Surgical History Status post carpal tunnel release Status post cataract extraction Status post right hip replacement Family History Family History Mother Family history of cardiovascular disease Sibling Family history of Parkinson's disease Family history of coronary artery disease Family history of malignant neoplasm of kidney Other Family history of arthritis Family history of malignant neoplasm Hypertension Social History Social History Social History: Smoking status: Never smoker Second hand tobacco smoke exposure: No Alcohol intake: never Substance use: never Substance use type: does not use Lack of Transportation: No Lack of Food: Never True Current Housing: I Have Housing Concerned About Future Housing: No Difficulty Paying Gas/Electric Bills: No Difficulty Paying for Meds: No Currently Unemployed: No Education: High School Diploma/GED Difficulty w/ Childcare or Family Care: No Living arrangements: with family Occupation/Education: retired Gender identity (if verbalized by the patient): Male Sexual Orientation (if Verbalized by the Patient): Straight or Heterosexual Spiritual care concerns: No Meds Home Medications and Allergies Home Medications Medication Instructions Recorded Confirmed Type aspirin 81 mg tablet,delayed 81 mg PO DAILY #90 tabs 12/25/21 10/17/22 Rx release atenolol 25 mg tablet 25 mg PO DAILY #90 tabs 12/25/21 10/17/22 Rx atorvastatin 40 mg tablet 40 mg PO DAILY #90 tabs 12/25/21 10/17/22 Rx bupropion HCl 150 mg 24 hr tablet, 150 mg PO QAM #90 tabs 12/25/21 10/17/22 Rx extended release (Wellbutrin XL) omeprazole 20 mg capsule,delayed 20 mg PO DAILY #90 caps 12/25/21 10/17/22 Rx release cranberry fruit 450 mg tablet 450 mg PO DAILY 01/31/22 10/17/22 History (cranberry) docusate sodium 50 mg capsule 50 mg PO DAILY 01/31/22 10/17/22 History (Stool Softener) multivitamin 1 tablet PO DAILY 01/31/22 10/17/22 History polyethylene glycol 3350 17 gram 17 g PO DAILY 01/31/22 10/17/22 History oral powder packet (Miralax) alendronate 70 mg tablet (Fosamax) 70 mg PO WEEKLY #12 tabs 07/22/22 10/17/22 Rx clonazepam 0.5 mg tablet 0.5 mg PO .qhs #90 tabs 09/24/22 10/17/22 Rx acetaminophen 500 mg tablet 500 mg PO DAILY 10/17/22 10/17/22 Histor
--- NOTE | 2022-10-28 10:10 | PC.NURSE ---
Report to the Outpatient Waiting Room, entrance under the green pavilion located off [facility], at time __1100 on date __10/31/22 . Planned Procedure Time: ___1300 . Time changes happen often and if your time is changed the preop area will call you the afternoon before. - You and your visitor will be asked to self-screen and do not enter if you have any COVID symptoms. - A mask is optional within the hospital at this time. Patients may have clear liquids (water, carbonated beverages, clear teas, apple juice) until 3 hours prior to surgery with a maximum of 20 ounces. - No food from midnight until time of surgery - Infants may have breast milk until 4 hours before surgery, infant formula 6 hours prior to surgery. - Children will be allowed to drink immediately following surgery. If applicable, please bring a bottle or sippy cup to assist with drinking. Juice, water, soda, and popsicles are readily available. For infants on formula, please bring formula the day of surgery. Pacifiers are allowed. Take the following medications with a SIP of water the morning of surgery: __AMOXICILLIN,,ATENOLOL,BUPROPION,PAXIL DO NOT STOP ANY OF YOUR OTHER PRESCRIPTION MEDICATIONS PRIOR TO SURGERY ?EXCEPT THE FOLLOWING Medications to discontinue per physician ___ASPIRIN PER DR DURHAM, ALL VITAMINS/SUPPLEMENTS 3 DAYS PRE OP LAST DOSE 10/28/22 Please no make-up, nail kyrgyz, hairspray, perfume, deodorant, or body powder the day of surgery. No jewelry (including any body piercings) or valuables the day of surgery, leave them at home. Please take a shower or bath the night before, or the morning of, surgery with an antibacterial soap. Wear comfortable, loose fitting clothing. Children are encouraged to wear pajamas. - Jewelry must be removed prior to entering the operating room. Rings and piercings that are not removed may be cut off. - The hospital will not accept responsibility for valuables. - Please leave all valuables, including medications, at home the day of surgery. If you are going home after surgery, a licensed cdl dedicated truck driver must drive you home. - NO public transportation without another adult if you receive anesthesia. - We recommend that an adult stay with you for 24 hours following discharge. - We also recommend that you do not drive, make important decision, drink alcoholic beverages, or take any drugs that were not prescribed by your health care provider for at least 24 hours after your discharge time. For Pediatric surgeries, we recommend two adults accompany the child home. Follow any additional instructions given to you from your surgeon. If you or anyone in your household have experienced Covid symptoms in the past week, please notify your surgeon or the nurse liaison at the phone number below for possible testing. Telephone instructions given to ___PATIENT AND BIRGIT and asked if any additional questions and then verbalized understanding. Patient advised to call surgeon office or pre surgery nurse liaison [phone] if any additional questions.
[2022-10-28 10:17] VITALS: BMI 25.0
--- NOTE | 2022-10-30 14:02 | WPDANESEPPF ---
Anes - Initial Pre Proc Eval Procedure: Operation Date: 10/31/22 10:00 Proposed Procedures p Cystoscopy, Right Ureteroscopy, Right Retrograde Pyelogram, Possible Right Stone Extraction, Possible Right Stent Placement, Possible Holmium Laser - Joseph David MD Date/Time: 10/30/22 14:02 Surgeon: Joseph David MD Pre Op Diagnosis: Right Ureteral Stone Patient Data Age: 87 Gender: M Height: 1.65 m Weight: 68.1 kg Allergies Allergy/AdvReac Type Severity Reaction Status Date / Time sulfamethoxazole Allergy Intermediate Itching/PALMER Verified 10/31/22 09:38 [From Bactrim] H trimethoprim [From Bactrim] Allergy Intermediate Itching/PALMER Verified 10/31/22 09:38 H Home Medications Medication Instructions Recorded Confirmed Type aspirin 81 mg tablet,delayed 81 mg PO DAILY #90 tabs 12/25/21 10/31/22 Rx release atenolol 25 mg tablet 25 mg PO DAILY #90 tabs 12/25/21 10/31/22 Rx atorvastatin 40 mg tablet 40 mg PO DAILY #90 tabs 12/25/21 10/29/22 Rx bupropion HCl 150 mg 24 hr tablet, 150 mg PO QAM #90 tabs 12/25/21 10/31/22 Rx extended release (Wellbutrin XL) omeprazole 20 mg capsule,delayed 20 mg PO DAILY #90 caps 12/25/21 10/29/22 Rx release cranberry fruit 450 mg tablet 450 mg PO DAILY 01/31/22 10/31/22 History (cranberry) docusate sodium 50 mg capsule 50 mg PO DAILY 01/31/22 10/29/22 History (Stool Softener) multivitamin 1 tablet PO DAILY 01/31/22 10/31/22 History polyethylene glycol 3350 17 gram 17 g PO DAILY 01/31/22 10/29/22 History oral powder packet (Miralax) alendronate 70 mg tablet (Fosamax) 70 mg PO WEEKLY #12 tabs 07/22/22 10/29/22 Rx clonazepam 0.5 mg tablet 0.5 mg PO .qhs #90 tabs 09/24/22 10/29/22 Rx acetaminophen 500 mg tablet 500 mg PO DAILY 10/17/22 10/29/22 History lisinopril 10 mg tablet 10 mg PO DAILY 10/17/22 10/29/22 History loratadine 10 mg tablet (Claritin) 10 mg PO DAILY 10/17/22 10/29/22 History paroxetine HCl 40 mg tablet (Paxil) 40 mg PO DAILY 10/17/22 10/31/22 History amoxicillin 875 mg-potassium 1 tablet PO Q12H 9 days #18 tabs 10/22/22 10/31/22 Rx clavulanate 125 mg tablet cephalexin 500 mg capsule 500 mg PO Q8H #9 caps 10/31/22 Rx hydrocodone 5 mg-acetaminophen 325 1 - 2 tablet PO Q6H PRN pain #20 10/31/22 Rx mg tablet tabs Patient hx anesthesia problems: none Family hx anesthesia problems: none Results Review: All pre-operative results and documents have been reviewed as part of the pre-operative evaluation. [facility] Past Medical History Medical History Acute cystitis without hematuria Anxiety Arthritis CAD (coronary artery disease) Degenerative joint disease (DJD) of hip Depression Dizziness DJD (degenerative joint disease), lumbar Hearing loss HLD (hyperlipidemia) HTN (hypertension) Hx of myocardial infarction Left hip pain Left knee DJD Lumbar radiculopathy, chronic JARED (obstructive sleep apnea) Paget disease of bone Prostate cancer Rash Skin lesion Trochanteric bursitis, left hip Vision loss Surgical History Surgical History Status post carpal tunnel release Status post cataract extraction Status post right hip replacement Family History Family History Mother Family history of cardiovascular disease Sibling Family history of Parkinson's disease Family history of coronary artery disease Family history of malignant neoplasm of kidney Other Family history of arthritis Family history of malignant neoplasm Hypertension Social History Social History Social History: Smoking status: Never smoker Second hand tobacco smoke exposure: No Alcohol intake: never Substance use: never Substance use type: does not use Lack of Transportation: No Lack of Food: Never True Current H
[2022-10-31] VITALS (8 sets, daily range): BP systolic 120–153; BP diastolic 52–69; PULSE 56–66; RESP 11–20; TEMP 36.3–37.2; O2SAT 99–100; BMI 24.5
--- NOTE | ~2022-10-31 | XR_ITS ---
EXAMINATION: XR retrograde pyelo w/stent RT DATE: 10/31/2022 09:55 INDICATION: Right internal ureteral stent placement TECHNIQUE: Fluoroscopic images from a right internal ureteral stent placement are submitted for mike garcia 28 seconds of fluoroscopy time. 70 fluoroscopic images FINDINGS: There is a right double-J internal ureteral stent projecting in expected position, with proximal Nelson loop at the level of the renal pelvis and distal loop in the pelvis within the bladder lumen. IMPRESSION: 1. Right internal ureteral stent placement. Please refer to real-time procedural findings for bonny klein. Reviewed, dictated and finalized at location L. IMPRESSION: 1. Right internal ureteral stent placement. Please refer to real-time procedu ral findings for details.
--- NOTE | 2022-10-31 06:32 | WPDHPUPDATE1 ---
History and Physical Update Update Date/Time: 10/31/22 06:32 History and Physical has been reviewed, including an updated exam of the patient. There are NO changes in the patient's condition. Risks, benefits, and alternatives have been discussed and questions answered. Patient agrees to proceed with procedure.
[2022-10-31] MEDS: LACTATED RINGERS 1,000 ML 30 ML IV CONT (08:40)
--- NOTE | 2022-10-31 08:52 | W.PM.PROC2 ---
Procedure Note - Detailed Date of Procedure 10/31/22 Pre-op Diagnosis Right Ureteral Stone Post-op Diagnosis Same Procedure Performed Cystoscopy, right ureteral stent removal, right retrograde pyelography, right ureteroscopy with laser lithotripsy and stone extraction, right ureteral stent replacement Surgeon Joseph David MD Anesthesia General Description of Procedure patient is brought to the operative suite was prepped draped in routine sterile fashion while in dorsal lithotomy position after the uneventful induction of a general LMA anesthetic. Cystoscopy is undertaken with a 21 F rigid cystoscope. There was no urethral stricture and moderate lateral lobe hyperplasia of the prostate without significant median lobe. Other than an indwelling right ureteral stent his bladder was endoscopically normal. There is no intravesical neoplasm and mucosa is without abnormal hyperemia. Tip of the stent is grasped and a 0.035 in glidewire was advanced to the right renal pelvis. Distal ureter was dilated with an 8 F 10 F dilator and a 12/13 F ureteral access sheath was placed. Ureteroscopy undertaken with 7.5 F flexible ureteral scope. Retrograde pyelogram was obtained ensure inspection of all calices. His oval shaped 8 mm stone is found in a midpole calyx. Using a 200 micron holmium laser fiber in a dusting mode is dusted into multiple tiny little pieces. There was just 1 small piece of any significance left and it is extracted with a 1.9 F disposable stone basket. On the way out the ureters inspected to ensure no additional stones. A 4.8 F stent is placed with the right proximal coil in the renal pelvis and distal coil in the bladder. Scopes and wires removed he was taken recovery room good condition. Estimated Blood Loss 0 Drains Yes Packing No Pathology Yes Complications No immediate complications Condition Stable Disposition PACU
--- NOTE | 2022-10-31 09:01 | WPDANESEPPF ---
Anes - Initial Pre Proc Eval Procedure: Operation Date: 10/31/22 10:00 Proposed Procedures p Cystoscopy, Right Ureteroscopy, Right Retrograde Pyelogram, Possible Right Stone Extraction, Possible Right Stent Placement, Possible Holmium Laser - Joseph David MD Date/Time: 10/31/22 09:01 Surgeon: Joseph David MD Pre Op Diagnosis: Right Ureteral Stone Patient Data Age: 87 Gender: M Height: 1.65 m Weight: 66.95 kg Last Vital Signs Temp 97.4 F L 10/31/22 08:10 Pulse 66 10/31/22 08:10 Resp 16 10/31/22 08:10 BP 131/63 10/31/22 08:10 Pulse Ox 100 10/31/22 08:10 O2 Del Method Room Air 10/31/22 08:10 Allergies Allergy/AdvReac Type Severity Reaction Status Date / Time sulfamethoxazole AdvReac Intermediate Itching/PALMER Verified 10/31/22 08:25 [From Bactrim] H trimethoprim [From Bactrim] AdvReac Intermediate Itching/PALMER Verified 10/31/22 08:25 H Home Medications Medication Instructions Recorded Confirmed Type aspirin 81 mg tablet,delayed 81 mg PO DAILY #90 tabs 12/25/21 10/31/22 Rx release atenolol 25 mg tablet 25 mg PO DAILY #90 tabs 12/25/21 10/31/22 Rx atorvastatin 40 mg tablet 40 mg PO DAILY #90 tabs 12/25/21 10/29/22 Rx bupropion HCl 150 mg 24 hr tablet, 150 mg PO QAM #90 tabs 12/25/21 10/31/22 Rx extended release (Wellbutrin XL) omeprazole 20 mg capsule,delayed 20 mg PO DAILY #90 caps 12/25/21 10/29/22 Rx release cranberry fruit 450 mg tablet 450 mg PO DAILY 01/31/22 10/31/22 History (cranberry) docusate sodium 50 mg capsule 50 mg PO DAILY 01/31/22 10/29/22 History (Stool Softener) multivitamin 1 tablet PO DAILY 01/31/22 10/31/22 History polyethylene glycol 3350 17 gram 17 g PO DAILY 01/31/22 10/29/22 History oral powder packet (Miralax) alendronate 70 mg tablet (Fosamax) 70 mg PO WEEKLY #12 tabs 07/22/22 10/29/22 Rx clonazepam 0.5 mg tablet 0.5 mg PO .qhs #90 tabs 09/24/22 10/29/22 Rx acetaminophen 500 mg tablet 500 mg PO DAILY 10/17/22 10/29/22 History lisinopril 10 mg tablet 10 mg PO DAILY 10/17/22 10/29/22 History loratadine 10 mg tablet (Claritin) 10 mg PO DAILY 10/17/22 10/29/22 History paroxetine HCl 40 mg tablet (Paxil) 40 mg PO DAILY 10/17/22 10/31/22 History amoxicillin 875 mg-potassium 1 tablet PO Q12H 9 days #18 tabs 10/22/22 10/31/22 Rx clavulanate 125 mg tablet Patient hx anesthesia problems: none Family hx anesthesia problems: none Results Review: All pre-operative results and documents have been reviewed as part of the pre-operative evaluation. [facility] Past Medical History Medical History Acute cystitis without hematuria Anxiety Arthritis CAD (coronary artery disease) Degenerative joint disease (DJD) of hip Depression Dizziness DJD (degenerative joint disease), lumbar Hearing loss HLD (hyperlipidemia) HTN (hypertension) Hx of myocardial infarction Left hip pain Left knee DJD Lumbar radiculopathy, chronic JARED (obstructive sleep apnea) Paget disease of bone Prostate cancer Rash Skin lesion Trochanteric bursitis, left hip Vision loss Surgical History Surgical History Status post carpal tunnel release Status post cataract extraction Status post right hip replacement Family History Family History Mother Family history of cardiovascular disease Sibling Family history of Parkinson's disease Family history of coronary artery disease Family history of malignant neoplasm of kidney Other Family history of arthritis Family history of malignant neoplasm Hypertension Social History Social History Social History: Smoking status: Never smoker Second hand tobacco smoke exposure: No Alcohol intake: never Substance use: never Substance use type: does not use Lack of Transpo
[2022-10-31] MEDS: ceFAZolin 2 GM/D5W 50 ML 2 GM/50 ML BAG IVPB (09:16)
[2022-10-31] MEDS: LIDOCAINE HCL 2% GEL UROJET 10 ML PKG MUCOUS MEM (09:46)
== END 2022-10-31 11:53 | disposition home or self-care (01) ==
PROVIDERS: PCP Family Medicine; Visit Provider Urology
PROC: (CPT 52352; principal; 2022-10-31 10:00)
DX: N20.1 Calculus of ureter (principal); I25.10 Atherosclerotic heart disease of native coronary artery without angina pectoris; E78.5 Hyperlipidemia, unspecified; I10 Essential (primary) hypertension; Z85.46 Personal history of malignant neoplasm of prostate
CPT/HCPCS: 52356; 74420; 82365; 88300; C1769; C1894; C2617; J0690; J1100; J2405; J2704; J7120

== ENCOUNTER 2023-07-28 13:57 | Outpatient (CLI) | payer MEDICARE, OTHER, SELFPAY ==
--- NOTE | ~2023-07-28 | XR_ITS ---
Supine and upright views of the abdomen Clinical history: Right ureteral stone COMPARISON: 11/02/2022 Findings: Bowel gas pattern is nonspecific. No evidence for obstruction or free air. No abnormal mass lesion or calcification is seen. Stable levoscoliosis of lumbar spine with diffuse degenerative jackson ge. Severe degenerative change left hip joint again noted. Right hip arthroplasty in place. Impression: No definite renal or ureteral stones seen. Probable calcified pelvic phleboliths. Extensive degenerative changes, as above. Reviewed, dictated and finalized at location . ATIONS PROCESSOR Impression: No definite renal or ureteral stones seen. Probable calcified pelvic phlebolith s. Extensive degenerative changes, as above.
== END 2023-07-28 13:58 | disposition home or self-care (01) ==
PROVIDERS: PCP Family Medicine; Visit Provider Urology
DX: N20.1 Calculus of ureter (principal)
CPT/HCPCS: 74018

== ENCOUNTER 2023-09-19 09:54 | Outpatient (CLI) | payer MEDICARE, OTHER, SELFPAY ==
--- NOTE | 2023-09-19 10:19 | ECG_ITS ---
Measurements Intervals [place] Rate: 59 P: 62 [place]: 152 QRS: 17 QRSD: 93 T: 40 QT: 407 QTc: 406 Interpretive Statements SINUS BRADYCARDIA OTHERWISE NORMAL ELECTROCARDIOGRAM COMPARED TO ECG 10/18/2022 08:13:20 HEART RATE IS NOW REDUCED Electronically Signed On 09-19-2023 12:33:13 CDT by Noé Villanueva M.D.
[2023-09-19 10:36] LABS: Basophils Percent Auto 0.6 % (0.2-1.2); Eosinophils Absolute Auto 0.1 K/mm3 (0-0.3); Eosinophils Percent Auto 2.1 % (0-4.4); Hematocrit 37.9 % (42.0-52.0); Hemoglobin 11.7 g/dL (14.0-18.0); Immature Granulocyte Absolute 0.01 K/mm3 (0.00-0.031); Immature Granulocyte Percent A 0.2 % (0-0.5); Lymphocytes Absolute Auto 1.77 K/mm3 (0.9-3.2); Lymphocytes Percent Auto 27.1 % (18.3-44.2); Mean Corpuscular HGB Conc 30.9 g/dl (32-36); Mean Corpuscular Hemoglobin 27.6 pg (26-34); Mean Corpuscular Volume 89.4 fl (80-100); Mean Platelet Volume 11.7 fl (7.4-10.4); Monocytes Absolute Auto 0.6 K/mm3 (0.1-0.6); Monocytes Percent Auto 8.4 % (2.6-8.5); Neutrophils Percent Auto 61.6 % (45.5-73.1); Platelet Count Result 225 k/mm3 (150-375); Red Blood Count 4.24 M/mm3 (4.6-6.20); Red Cell Distribution Width 16.7 % (11.5-14.5); White Blood Count 6.5 K/mm3 (4.5-10.0)
[2023-09-19 10:46] LABS: Appearance Urine Cloudy (Clear); Bacteria Urine 4+ /hpf; Bilirubin Urine 1+ (Negative); Blood Urine Negative (Negative); Calcium Oxalate Crystals Urine Present /hpf; Color Urine Dark Yellow (Yellow); Glucose Urine UA Negative (Negative); Ketones Urine Trace mg/dL (Negative); Leukocyte Esterase Ur 3+ LEU/UL (Negative); Nitrate Urine Positive (Negative); Protein Urine 1+ mg/dL (Negative); RBC Urine 0-2 /hpf (0-2); Specific Grav Ur 1.026 (1.001-1.035); Squamous Epithelial Cell Urine None Seen /hpf (Few); WBC Urine >100 /hpf (0-3)
[2023-09-19 10:58] LABS: Anion Gap 5 mmol/L (4-12); Blood Urea Nitrogen 17 mg/dL (9-20); Carbon Dioxide 26 mmol/L (22-30); Chloride 105 mmol/L (98-107); Estimated Glomerular Filt Rate > 60; Glucose 96 mg/dL (65-110); Potassium 4.6 mmol/L (3.4-5.0); Sodium 136 mmol/L (137-145)
[2023-09-19 11:15] LABS: Add Urine Microscopic? YES
== END 2023-09-19 09:55 | disposition home or self-care (01) ==
LOC: ANHLAB 09:59
PROVIDERS: PCP Family Medicine; Visit Provider Orthopaedic Surgery
DX: E78.5 Hyperlipidemia, unspecified (principal); N39.0 Urinary tract infection, site not specified; R53.83 Other fatigue; I10 Essential (primary) hypertension; I25.2 Old myocardial infarction
CPT/HCPCS: 36415; 80048; 81001; 85025; 87077; 87086; 87186; 93005

== ENCOUNTER 2023-09-29 11:59 | Outpatient (CLI) | payer MEDICARE, OTHER, SELFPAY ==
[2023-09-29 12:50] LABS: Appearance Urine Clear (Clear); Bacteria Urine None Seen /hpf; Bilirubin Urine Negative (Negative); Blood Urine Negative (Negative); Color Urine Yellow (Yellow); Glucose Urine UA Negative (Negative); Ketones Urine Negative (Negative); Leukocyte Esterase Ur Trace LEU/UL (Negative); Nitrate Urine Negative (Negative); Non Pathogenic Casts 0-2; Protein Urine Negative (Negative); RBC Urine 0-2 /hpf (0-2); Specific Grav Ur 1.013 (1.001-1.035); Squamous Epithelial Cell Urine None Seen /hpf (Few); WBC Urine 0-5 /hpf (0-3); pH Urine 6.5 (5.0-9.0)
[2023-09-29 12:54] LABS: Add Urine Microscopic? YES
== END 2023-09-29 12:00 | disposition home or self-care (01) ==
LOC: ANHLAB 12:01
PROVIDERS: PCP Family Medicine; Visit Provider Family Medicine
DX: N39.0 Urinary tract infection, site not specified (principal)
CPT/HCPCS: 81001

== ENCOUNTER 2023-10-31 11:48 | Outpatient (CLI) | payer MEDICARE, OTHER, SELFPAY ==
[2023-10-31 13:34] LABS: Albumin Level 4.4 g/dL (3.5-5.1)
[2023-10-31 13:40] LABS: Hemoglobin A1C 5.7 % (<5.7)
[2023-10-31 13:44] LABS: Prothrombin Time 13.3 Seconds (11.1-14.7)
[2023-10-31 13:45] LABS: Partial Thromboplastin Time 28.5 Seconds (22.3-36.8)
[2023-10-31 14:15] LABS: Urine Cotinine NEGATIVE
[2023-10-31 14:35] LABS: MRSA (PCR) NOT DETECTED (NOT DETECTE)
== END 2023-10-31 11:49 | disposition home or self-care (01) ==
LOC: ANHSURGERY 11:54
PROVIDERS: PCP Family Medicine; Visit Provider Orthopaedic Surgery
DX: Z01.818 Encounter for other preprocedural examination (principal); M16.12 Unilateral primary osteoarthritis, left hip
CPT/HCPCS: 80307; 82040; 83036; 85610; 85730; 86850; 86900; 86901; 87641

== ENCOUNTER 2023-11-12 08:44 | Inpatient (IN) | payer MEDICARE, OTHER, SELFPAY ==
[2023-10-31 12:07] VITALS: BMI 27.8
--- NOTE | 2023-10-31 12:38 | PC.NURSE ---
Report to the Outpatient Waiting Room, entrance under the green pavilion located off [facility], at time __6:00 AM on date __11/12/23 . Planned Procedure Time: _7:30 AM . Time changes happen often and if your time is changed the preop area will call you the afternoon before. - You and your visitor will be asked to self-screen and do not enter if you have any COVID symptoms. - A mask is optional within the hospital at this time. Patients may have clear liquids (water, carbonated beverages, clear teas, apple juice) until 3 hours prior to surgery ( 4:30 AM)with a maximum of 20 ounces. - No food from midnight until time of surgery - Infants may have breast milk until 4 hours before surgery, infant formula 6 hours prior to surgery. - Children will be allowed to drink immediately following surgery. If applicable, please bring a bottle or sippy cup to assist with drinking. Juice, water, soda, and popsicles are readily available. For infants on formula, please bring formula the day of surgery. Pacifiers are allowed. Take the following medications with a SIP of water the morning of surgery: __ATENOLOL,BUPROPION,PAROXETINE DO NOT STOP ANY OF YOUR OTHER PRESCRIPTION MEDICATIONS PRIOR TO SURGERY ?EXCEPT THE FOLLOWING Medications to discontinue per physician ___PT STATES HOLD ASPIRIN 7 DAYS PRE OP PER DR GIRON.LAST DOSE 11/04/23 HOLD ALL VITAMINS AND SUPPLEMENTS 3 DAYS PRE O P.LAST DOSE 11/08/23 Please no make-up, nail prydeinig, hairspray, perfume, deodorant, or body powder the day of surgery. No jewelry (including any body piercings) or valuables the day of surgery, leave them at home. Please take a shower or bath the night before, or the morning of, surgery with an antibacterial soap. Wear comfortable, loose fitting clothing. Children are encouraged to wear pajamas. - Jewelry must be removed prior to entering the operating room. Rings and piercings that are not removed may be cut off. - The hospital will not accept responsibility for valuables. - Please leave all valuables, including medications, at home the day of surgery. If you are going home after surgery, a licensed ice cream truck driver must drive you home. - NO public transportation without another adult if you receive anesthesia. - We recommend that an adult stay with you for 24 hours following discharge. - We also recommend that you do not drive, make important decision, drink alcoholic beverages, or take any drugs that were not prescribed by your health care provider for at least 24 hours after your discharge time. For Pediatric surgeries, we recommend two adults accompany the child home. Follow any additional instructions given to you from your surgeon. If you or anyone in your household have experienced Covid symptoms in the past week, please notify your surgeon or the nurse liaison at the phone number below for possible testing. VERBAL AND WRITTEN instructions given to __PT AND BIRGIT and asked if any additional questions and then verbalized understanding. Patient advised to call surgeon office or pre surgery nurse liaison [phone] if any additional questions.
[2023-10-31 13:02] VITALS: BP 181/63; PULSE 63; RESP 18; TEMP 37.1; O2SAT 99
[2023-11-12] VITALS (14 sets, daily range): BP systolic 105–139; BP diastolic 44–71; PULSE 59–129; RESP 12–20; TEMP 35.9–36.9; O2SAT 95–100; BMI 26.9
--- NOTE | ~2023-11-12 | XR_ITS ---
EXAMINATION: XR abdomen/kub 1V DATE: 11/14/2023 12:22 INDICATION: Constipation. TECHNIQUE: A supine view of the abdomen was obtained. COMPARISON: CT abdomen and pelvis 10/17/2022 FINDINGS: There are no dilated loops of bowel. There is a moderate volume of stool in the colon. Ther e are bilateral hip bipolar hemiarthroplasties. IMPRESSION: 1. Normal bowel gas pattern. Reviewed, dictated and finalized at location A.
--- NOTE | ~2023-11-12 | XR_ITS ---
EXAMINATION: XR hip LT 1V DATE: 11/12/2023 09:57 INDICATION: Left hip arthroplasty. Postop. TECHNIQUE: A single view of left hip was obtained. COMPARISON: Left hip radiographs 09/18/2023. FINDINGS: There is a bipolar left hip hemiarthroplasty in near-anatomic alignment. The left acetabulu m is enlarged with sclerosis and osteophytes. No fracture. 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 There is gas in the soft tissues, consistent with recent surgery. IMPRESSION: 1. Bipolar left hip hemiarthroplasty near-anatomic alignment. Reviewed, dictated and finalized at location A.
[2023-11-12] MEDS: LACTATED RINGERS 1,000 ML 30 ML IV CONT ×2 (06:45→09:45)
[2023-11-12] MEDS: ACETAMINOPHEN 500 MG TABLET 1000 MG PO (06:50)
--- NOTE | 2023-11-12 06:51 | WPDANESEPPF ---
Anes - Initial Pre Proc Eval Procedure: Operation Date: 11/12/23 07:30 Proposed Procedures p Left Bipolar Hip Hemiarthroplasty - Alberto Martinez MD Date/Time: 11/12/23 06:51 Surgeon: Alberto Martinez MD Pre Op Diagnosis: left hip djd Patient Data Age: 88 Gender: M Height: 1.59 m Weight: 70.2 kg Last Vital Signs Temp 37.1 C 10/31/23 13:02 Pulse 63 10/31/23 13:02 Resp 18 10/31/23 13:02 BP 181/63 H 10/31/23 13:02 Pulse Ox 99 10/31/23 13:02 O2 Del Method Room Air 10/31/23 13:02 Allergies Allergy/AdvReac Type Severity Reaction Status Date / Time sulfamethoxazole Allergy Intermediate Itching/PALMER Verified 11/12/23 06:46 [From Bactrim] H trimethoprim [From Bactrim] Allergy Intermediate Itching/PALMER Verified 11/12/23 06:46 H Home Medications Medication Instructions Recorded Confirmed Type cranberry fruit 450 mg tablet 450 mg PO DAILY 01/31/22 11/03/23 History (cranberry) docusate sodium 50 mg capsule 50 mg PO DAILY 01/31/22 11/03/23 History (Stool Softener) multivitamin 1 tablet PO DAILY 01/31/22 11/03/23 History polyethylene glycol 3350 17 gram 17 g PO DAILY 01/31/22 11/03/23 History oral powder packet (Miralax) acetaminophen 500 mg tablet 500 mg PO DAILY 10/17/22 11/03/23 History loratadine 10 mg tablet (Claritin) 10 mg PO DAILY 10/17/22 11/03/23 History atorvastatin 40 mg tablet 40 mg PO DAILY #90 tabs 12/30/22 11/03/23 Rx bupropion HCl 150 mg 24 hr tablet, 150 mg PO QAM #90 tabs 12/30/22 11/03/23 Rx extended release (Wellbutrin XL) omeprazole 20 mg capsule,delayed 20 mg PO DAILY #90 caps 12/30/22 11/03/23 Rx release paroxetine HCl 40 mg tablet (Paxil) 40 mg PO DAILY #90 tabs 12/30/22 11/03/23 Rx atenolol 25 mg tablet 25 mg PO BID #180 tabs 02/04/23 11/03/23 Rx alendronate 70 mg tablet (Fosamax) 70 mg PO WEEKLY #12 tabs 08/04/23 11/03/23 Rx aspirin 81 mg tablet,delayed 81 mg PO DAILY #90 tabs 09/11/23 11/03/23 Rx release clonazepam 0.5 mg tablet 0.5 mg PO .qhs #90 tabs 09/11/23 11/03/23 Rx chlorhexidine gluconate 4 % 1 applic topical ONCE #237 mL 11/05/23 Rx topical liquid (Hibiclens) Patient hx anesthesia problems: other (delerium post ARMEN) Family hx anesthesia problems: none Results Review: All pre-operative results and documents have been reviewed as part of the pre-operative evaluation. [facility] Past Medical History Medical History Acute cystitis without hematuria Anxiety Arthritis CAD (coronary artery disease) Degenerative joint disease (DJD) of hip Depression Dizziness DJD (degenerative joint disease), lumbar Hearing loss HLD (hyperlipidemia) HTN (hypertension) Hx of myocardial infarction Left hip pain Left knee DJD Lumbar radiculopathy, chronic JARED (obstructive sleep apnea) Paget disease of bone Prostate cancer Rash Skin lesion Trochanteric bursitis, left hip Vision loss Surgical History Surgical History Status post carpal tunnel release Status post cataract extraction Status post right hip replacement Family History Family History Mother Family history of cardiovascular disease Sibling Family history of Parkinson's disease Family history of coronary artery disease Family history of malignant neoplasm of kidney Other Family history of arthritis Family history of malignant neoplasm Hypertension Social History Social History Social History: Smoking status: Never smoker Second hand tobacco smoke exposure: No Additional smoking assessment comments: DENIES ANY FORM OF TOBACCO USE Alcohol intake: never Substance use: never Substance use type: does not use Lack of Transportation: No Lack of Food: Never True Current Housing: I Have Housing Concerned About Future Housing: No
[2023-11-12] MEDS: TRANEXAMIC ACID 1,000MG/ISO100 1,000 MG/100 ML BAG 200 MG IVPB (06:52)
--- NOTE | 2023-11-12 07:12 | WPDHPUPDATE1 ---
History and Physical Update Update Date/Time: 11/12/23 07:12 History and Physical has been reviewed, including an updated exam of the patient. There are NO changes in the patient's condition. Risks, benefits, and alternatives have been discussed and questions answered. Patient agrees to proceed with procedure.
[2023-11-12] MEDS: ceFAZolin 2 GM/D5W 50 ML 2 GM/50 ML BAG IVPB ×2 (07:26→14:59)
[2023-11-12] MEDS: SODIUM CHLORIDE 0.9% IV 37.7 ML, MORPHINE SULFATE INJ (*CRX) 2 MG, ROPivacaine HCL 1% 2... INFILTRATE (08:12)
[2023-11-12] MEDS: TRANEXAMIC ACID 1,000 MG/10 ML AMPUL 1000 MG IV PUSH (09:05)
--- NOTE | 2023-11-12 09:46 | W.PM.PROC2 ---
Procedure Note - Detailed Date of Procedure 11/12/23 Pre-op Diagnosis left hip djd Post-op Diagnosis Same Procedure Performed LEFT HIP HEMIARTHROPLASTY WITH BIPOLAR PROSTHESIS Surgeon Alberto Martinez MD Anesthesia General Description of Procedure THE PATIENT WAS TAKEN TO THE OPERATING ROOM IN STABLE CONDITION. HE WAS PLACED IN THE LATERAL DECUBITUS AND THE LEFT LOWER EXTREMITY WAS PREPPED AND DRAPED IN THE STERILE FASHION. INCISION WAS MADE IN THE POSTERIOR LATERAL SIDE OF THE HIP, DOWN TO THE FASCIA LAYER. THE FASCIA WAS INCISED. THE HIP WAS EXPOSED. THE SHORT EXTERNAL ROTATORS WERE EXPOSED AND THERE WAS A LARGE HEMATOMA. THE CAPSULE WAS INCISED EXPOSING THE FRACTURE. THE FEMORAL HEAD WAS REMOVED. IT MEASURED 50 MM. AN OSTEOTOMY WAS MADE TO THE FEMORAL NECK ABOUT 1 CM PROXIMAL TO THE LESSER TROCHANTER. NEXT THE FEMUR WAS PREPARED WITH INITIAL CANAL FINDER THEN SEQUENTIAL REAMING UNTIL A BROACHING TILL A #5 BROACH FIT WELL IN 15 OF ANTE VERSION. A 0 STANDARD OFFSET NECK BIPOLAR TRIAL IN A 50 MM SHELL WAS PLACED. THE SHUCK TEST WAS EXCELLENT AND THE STABILITY IN FLEXION AND ROTATION WAS EXCELLENT. LEG LENGTHS WERE GROSSLY EQUAL. TRIALS WERE REMOVED. A #5 AVENIR STANDARD OFFSET STEM BY ISSAC WAS PRESS FIT IN 15 DEG OF ANTEVERSION. A 0 BIPOLAR HEAD NECK TRIAL WAS PLACED AGAIN. THE HIP WAS TRIALED AND THE STABILITY WAS EXCELLENT WERE THE LEG LENGTHS AND THE SHUCK TEST. NEXT A BIPOLAR HEAD NECK 0 IMPLANT WITH A 50 MM COBALT CHROME SHELL WAS PLACED AND TRIALED ONCE AGAIN SHOWING EXCELLENT STABILITY AND GROSSLY EQUAL LEG LENGTHS. THE WOUND WAS IRRIGATED WITH STERILE BETADINE AND WATER FOR 3 MIN. THEN WASHED AGAIN. THE CAPSULE AND THE EXTERNAL ROTATORS WERE APPROXIMATED WITH NUMBER 1 VICRYL. THE FASCIA WITH No 2 QUIL AND THE SUB CUTANEOUS LAYER WITH 2-0 ABSORBABLE SUTURE WITH A RUNNING 3-0 SUBCUTICULAR LAYER WELL. DERMABOND WAS PLACED AND STERILE DRESSING WAS APPLIED. PATIENT WAS PLACED BACK ON TO THE SUPINE POSITION AND WAS EXTUBATED. Estimated Blood Loss 150 Drains No Pathology None sent Complications No immediate complications Condition Stable Disposition PACU
--- NOTE | 2023-11-12 10:14 | SUR.PHASEII ---
Glasses and hearing aids reapplied in PACU. All belongings, including clothes, walker, and dentures, at bedside with pt.
--- NOTE | 2023-11-12 10:40 | PC.NURSE ---
This patient, Power Ayers, was admitted to [facility] Surg Room 328-01. Patient/family oriented to hospital policies and general routines including ID bracelet, bed and alarms, visiting hours, pain management, procedures, bathroom and other care routines, personal items, smoking policy, room service/diet, and visiting hours. Information on how to activate the Rapid Response Team has been discussed. Patient/Family are encouraged to report perceived risks to care and to ask questions if they do not understand what they are told or what they should do.
[2023-11-12] MEDS: FAMOTIDINE 20 MG TABLET PO ×2 (11:54→21:34)
[2023-11-12] MEDS: ASPIRIN 81 MG ENTERIC TABLET PO ×2 (11:54→21:33)
[2023-11-12] MEDS: PANTOPRAZOLE 40 MG TABLET PO (14:59)
[2023-11-12] MEDS: ACETAMINOPHEN 500 MG TABLET PO (19:29)
[2023-11-12] MEDS: SENNA/DOCUSATE SODIUM TABLET 2 TAB PO (19:30)
[2023-11-12] MEDS: atenoloL 25 MG TABLET PO (21:33)
[2023-11-12] MEDS: clonazePAM (*CRX) 0.5 MG TABLET PO (21:34)
[2023-11-12] MEDS: ATORVASTATIN 40 MG TABLET PO (21:34)
[2023-11-13] VITALS (11 sets, daily range): BP systolic 102–126; BP diastolic 40–58; PULSE 73–97; RESP 14–22; TEMP 36.9–37.7; O2SAT 95–99
[2023-11-13] MEDS: ceFAZolin 2 GM/D5W 50 ML 2 GM/50 ML BAG IVPB ×2 (00:12→07:36)
[2023-11-13 06:23] LABS: Basophils Percent Auto 0.2 % (0.2-1.2); Hematocrit 31.6 % (42.0-52.0); Hemoglobin 10.2 g/dL (14.0-18.0); Immature Granulocyte Absolute 0.07 K/mm3 (0.00-0.031); Immature Granulocyte Percent A 0.5 % (0-0.5); Lymphocytes Absolute Auto 2.14 K/mm3 (0.9-3.2); Lymphocytes Percent Auto 14.2 % (18.3-44.2); Mean Corpuscular HGB Conc 32.3 g/dl (32-36); Mean Corpuscular Volume 86.8 fl (80-100); Mean Platelet Volume 12.1 fl (7.4-10.4); Monocytes Absolute Auto 2.1 K/mm3 (0.1-0.6); Monocytes Percent Auto 13.6 % (2.6-8.5); Neutrophils Absolute Auto 10.8 K/mm3 (1.3-6.7); Neutrophils Percent Auto 71.5 % (45.5-73.1); Platelet Count Result 203 k/mm3 (150-375); Red Blood Count 3.64 M/mm3 (4.6-6.20); Red Cell Distribution Width 16.5 % (11.5-14.5); White Blood Count 15.1 K/mm3 (4.5-10.0)
[2023-11-13 06:35] LABS: Anion Gap 3 mmol/L (4-12); Blood Urea Nitrogen 21 mg/dL (9-20); Calcium 8.6 mg/dL (8.4-10.2); Carbon Dioxide 26 mmol/L (22-30); Chloride 105 mmol/L (98-107); Estimated CRCL calculation 35 ml/min; Estimated Glomerular Filt Rate > 60; Glucose 108 mg/dL (65-110); Potassium 4.2 mmol/L (3.4-5.0); Sodium 134 mmol/L (137-145)
[2023-11-13] MEDS: oxyCODONE/ACETAMINOPHEN (*CRX) 5-325 MG TABLET 1 TABLET PO ×2 (07:48→23:03)
[2023-11-13] MEDS: SENNA/DOCUSATE SODIUM TABLET 2 TAB PO ×2 (08:47→17:53)
[2023-11-13] MEDS: polyethylene glycoL 3350 17 GM POWD.PACK PO (08:48)
[2023-11-13] MEDS: PARoxetine 20 MG TABLET 40 MG PO (08:48)
[2023-11-13] MEDS: atenoloL 25 MG TABLET PO ×2 (08:48→20:07)
[2023-11-13] MEDS: ASPIRIN 81 MG ENTERIC TABLET PO ×2 (08:49→20:07)
[2023-11-13] MEDS: buPROPion HCL XL (24 HR) 150 MG TABCR PO (08:49)
[2023-11-13] MEDS: PANTOPRAZOLE 40 MG TABLET PO (08:49)
[2023-11-13] MEDS: FAMOTIDINE 20 MG TABLET PO ×2 (08:49→20:08)
--- NOTE | 2023-11-13 09:11 | P.PNAN_ITS ---
Anes - Prog Note Post-Op Date/Time: 11/13/23 09:11 Cardiovascular status: normal Respiratory status: normal Airway patency: baseline Mental status: baseline Post-Op hydration status: normal Vital Signs: Last Vital Signs Temp 37.4 C 11/13/23 08:00 Pulse 77 11/13/23 08:48 Resp 14 11/13/23 08:00 BP 102/50 L 11/13/23 08:00 Pulse Ox 97 11/13/23 08:20 O2 Del Method Room Air 11/13/23 08:20 O2 Flow Rate 10 11/12/23 10:00 Pain Score (VAS): 08/23 I/O: Intake & Output 11/12/23 11/13/23 11/13/23 23:59 07:59 15:59 Intake Total 250 118 Output Total 200 400 Balance -200 -150 118 Laboratory Tests 11/13/23 05:47 11/13/23 05:47 11/13/23 05:47 WBC 15.1 H RBC 3.64 L Hgb 10.2 L Hct 31.6 L MCV 86.8 MCH 28.0 MCHC 32.3 RDW 16.5 H Plt Count 203 MPV 12.1 H Immature Gran % (Auto) 0.5 Neut % (Auto) 71.5 Lymph % (Auto) 14.2 L [place] % (Auto) 13.6 H Eos % (Auto) 0.0 Baso % (Auto) 0.2 Lymph # (Auto) 2.14 [place] # (Auto) 2.1 H Eos # (Auto) 0.0 Baso # (Auto) 0.0 Abs Immat Gran (auto) 0.07 H Absolute Neuts (auto) 10.8 H Absolute Nucleated RBC 0.000 Nucleated RBC % 0.0 Sodium 134 L Potassium 4.2 Chloride 105 Carbon Dioxide 26 Anion Gap 3 L BUN 21 H Creatinine 1.00 Estim Creat Clear Calc 35 Estimated GFR > 60 Glucose 108 Calcium 8.6 Post-procedural complaints: none Patient Feedback: Patient satisfied with anesthetic care.
--- NOTE | 2023-11-13 09:40 | PM.PNORT ---
Progress Note: A&P Assessment and Plan (1) S/P total hip arthroplasty: Qualifiers: Laterality: left Qualified Code(s): Z96.642 - Presence of left artificial hip joint Code(s): Z96.649 - Presence of unspecified artificial hip joint Status: Acute Assessment and Plan: POD #1 : LEFT HIP HEMIARTHROPLASTY WITH BIPOLAR PROSTHESIS Continue PT/OT. WBAT. Walker. HIGH FALL RISK. Continue pain control. Ice Hip. Protect skin. DVT prophylaxis with Aspirin. SCDs. Incentive Spirometry Use reviewed. Monitor Dressing. Change prior to discharge. Bowel Regimen. Dispo: [facility] vs. Rehab pending progress with PT/OT Time Spent With Patient Time: Reviewed history, exam, radiographs and current labs with attending MD and covering surgeon, Dr. Martinez, who agrees with current plan as indicated above. No further recommendations from Dr. Martinez at this time. Subjective Subjective Date/Time Seen: 11/13/23 09:40 Post Op day: 1 Interval history: POD #1: LEFT HIP HEMIARTHROPLASTY WITH BIPOLAR PROSTHESIS Patient doing well. Working with PT/OT. Slow progress. May require further rehab due to need for verbal cues. Review of Systems Constitutional: Constitutional: Denies chills, Denies fatigue, Denies fever(s), Denies night sweats and Denies weakness Cardiovascular: Cardiovascular: Denies chest pain, Denies lightheadedness, Denies palpitations and Denies dyspnea Respiratory: Respiratory: Denies cough, Denies dyspnea and Denies wheezing Gastrointestinal: Gastrointestinal: Denies abdominal pain, Denies diarrhea, Denies nausea and Denies vomiting Musculoskeletal: Musculoskeletal: Reports arthralgias (left hip ), Reports joint swelling (left hip ) and Denies numbness Neurologic: Denies numbness and Denies weakness Endocrine: Endocrine: Denies fatigue and Denies palpitations Allergic/Immunologic: Allergic/Immunologic: Denies wheezing Exam Const: General: comfortable and no acute distress Orientation/consciousness: patient oriented x3 Limitations: no limitations Resp: Effort & Inspection: normal respiratory effort Cardio: Rate: regular rate Rhythm: regular rhythm GI: Inspection: non-distended Skin: General skin exam: normal color and wounds noted (incision left hip C/D/I ) Wounds: wounds noted (incision left hip C/D/I ) Neuro: General: patient oriented x3 Extrem: Left lower extremity: hip/thigh Details: tenderness Location: of the hip Location: laterally and anteriorly, swelling (thigh soft ) Location: of the hip (lateral. ), abnormal ROM (limitations with internal/external rotation and flexion/extension due to recent surgical intervention ) and other (incision lateral hip c/d/i. ), knee Details: normal to inspection and normal ROM; no tenderness and no swelling, lower leg (Negative Shane's Sign ) Details: no edema, ankle (+ankle dorsiflexion/plantarflexion ) Details: normal to inspection, no edema and normal ROM; no tenderness, no swelling and no warmth and foot Details: normal capillary refill, toes with normal ROM, vascular exam Details: dorsalis pedis pulse present and motor-sensory exam light-touch normal in all toes; no tenderness, no ecchymosis and no crepitus Psych: Mental Status: mental status grossly normal Affect: normal affect Objective Data Vital Signs Vital Signs: Vital Signs - 24 hr 11/12/23 09:45 11/12/23 09:50 11/12/23 10:00 Temperature 36.1 C L Pulse Rate 72 74 Respiratory Rate 12 16 Blood Pressure 114/60 139/71 Pulse Oximetry 100 100 100 Oxygen Delivery Simple Face Mask Simple Face Mask Simple Face Mask Oxygen Flow Rate 10 10 10 11/12/23 10:05 11/12/23 10:15 11/12/23 10:30 Temperature Pulse Rate 71 70 Respiratory Rate 14 15 Blood Pressure 130/70 139/68 Pulse Oximetry 100 100 95 Oxygen Delivery Room Air Room Air Room Air Oxygen Flow Rate 11/12/23 10:45 11/12/23 10:45 11/12/23 11:00 Temperature 36.1 C L 36.1 C L Pulse Rate 129 H 59 L Respirator
[2023-11-13] MEDS: ATORVASTATIN 40 MG TABLET PO (20:08)
[2023-11-13] MEDS: clonazePAM (*CRX) 0.5 MG TABLET PO (20:08)
[2023-11-14 04:00] VITALS: BP 119/48; PULSE 74; RESP 16; TEMP 37.1; O2SAT 98
[2023-11-14 08:47] VITALS: PULSE 74
[2023-11-14] MEDS: atenoloL 25 MG TABLET PO (08:47)
[2023-11-14] MEDS: ASPIRIN 81 MG ENTERIC TABLET PO (08:48)
[2023-11-14] MEDS: PANTOPRAZOLE 40 MG TABLET PO (08:48)
[2023-11-14] MEDS: PARoxetine 20 MG TABLET 40 MG PO (08:48)
[2023-11-14] MEDS: FAMOTIDINE 20 MG TABLET PO (08:48)
[2023-11-14] MEDS: buPROPion HCL XL (24 HR) 150 MG TABCR PO (08:49)
[2023-11-14] MEDS: polyethylene glycoL 3350 17 GM POWD.PACK PO (08:49)
[2023-11-14] MEDS: SENNA/DOCUSATE SODIUM TABLET 2 TAB PO ×2 (08:49→17:43)
--- NOTE | 2023-11-14 10:25 | PM.PNORT ---
Progress Note: A&P Assessment and Plan (1) S/P total hip arthroplasty: Qualifiers: Laterality: left Qualified Code(s): Z96.642 - Presence of left artificial hip joint Code(s): Z96.649 - Presence of unspecified artificial hip joint Status: Acute Assessment and Plan: POD #2: LEFT HIP HEMIARTHROPLASTY WITH BIPOLAR PROSTHESIS Continue PT/OT. WBAT. Walker. HIGH FALL RISK. Continue pain control. Ice Hip. Protect skin. DVT prophylaxis with Aspirin. SCDs. Incentive Spirometry Use reviewed. Monitor Dressing. Change prior to discharge. Bowel Regimen. Dispo: [facility] vs. Rehab pending progress with PT/OT Time Spent With Patient Time: Reviewed history, exam, radiographs and current labs with attending MD and covering surgeon, Dr. Martinez, who agrees with current plan as indicated above. No further recommendations from Dr. Martinez at this time. Subjective Subjective Date/Time Seen: 11/14/23 10:25 Post Op day: 2 Interval history: POD #2: LEFT HIP HEMIARTHROPLASTY WITH BIPOLAR PROSTHESIS Patient doing well. Working with PT/OT. Still with slow progress. Hopeful for discharge to rehab for additional PT/OT. Review of Systems Constitutional: Constitutional: Denies chills, Denies fatigue, Denies fever(s), Denies night sweats and Denies weakness Cardiovascular: Cardiovascular: Denies chest pain, Denies lightheadedness, Denies palpitations and Denies dyspnea Respiratory: Respiratory: Denies cough, Denies dyspnea and Denies wheezing Gastrointestinal: Gastrointestinal: Denies abdominal pain, Denies diarrhea, Denies nausea and Denies vomiting Musculoskeletal: Musculoskeletal: Reports arthralgias (left hip ), Reports joint swelling (left hip ) and Denies numbness Neurologic: Denies numbness and Denies weakness Endocrine: Endocrine: Denies fatigue and Denies palpitations Allergic/Immunologic: Allergic/Immunologic: Denies wheezing Exam Const: General: comfortable and no acute distress Orientation/consciousness: patient oriented x3 Limitations: no limitations Resp: Effort & Inspection: normal respiratory effort Cardio: Rate: regular rate Rhythm: regular rhythm GI: Inspection: non-distended Skin: General skin exam: normal color and wounds noted (incision left hip C/D/I ) Wounds: wounds noted (incision left hip C/D/I ) Neuro: General: patient oriented x3 Extrem: Left lower extremity: hip/thigh Details: tenderness Location: of the hip Location: laterally and anteriorly, swelling (thigh soft ) Location: of the hip (lateral. ), abnormal ROM (limitations with internal/external rotation and flexion/extension due to recent surgical intervention ) and other (incision lateral hip c/d/i. ), knee Details: normal to inspection and normal ROM; no tenderness and no swelling, lower leg (Negative Shane's Sign ) Details: no edema, ankle (+ankle dorsiflexion/plantarflexion ) Details: normal to inspection, no edema and normal ROM; no tenderness, no swelling and no warmth and foot Details: normal capillary refill, toes with normal ROM, vascular exam Details: dorsalis pedis pulse present and motor-sensory exam light-touch normal in all toes; no tenderness, no ecchymosis and no crepitus Psych: Mental Status: mental status grossly normal Affect: normal affect Objective Data Vital Signs Vital Signs: Vital Signs - 24 hr 11/13/23 12:00 11/13/23 16:00 11/13/23 20:07 Temperature 36.9 C 37.3 C Pulse Rate 73 77 80 Respiratory Rate 18 22 H Blood Pressure 120/40 L 121/49 L Pulse Oximetry 97 99 Oxygen Delivery 11/13/23 20:00 11/13/23 20:00 11/13/23 23:25 Temperature 37.7 C H 37.0 C Pulse Rate 80 82 80 Respiratory Rate 22 H 20 18 Blood Pressure 110/46 L 126/50 L Pulse Oximetry 99 97 98 Oxygen Delivery Room Air 11/13/23 21:16 11/14/23 04:00 11/14/23 08:47 Temperature 37.1 C Pulse Rate 74 74 Respiratory Rate 16 Blood Pressure 119/48 L Pulse Oximetry 98 98 Oxygen Delivery Room Air
--- NOTE | 2023-11-14 12:13 | PM.DS ---
DS: Admitting Diagnosis Discharge Date 11/14/2023 Admitting Diagnosis Left Hip DJD DS: Discharge Diagnosis Discharge Diagnosis (1) S/P total hip arthroplasty: Qualifiers: Laterality: left Qualified Code(s): Z96.642 - Presence of left artificial hip joint Code(s): Z96.649 - Presence of unspecified artificial hip joint Status: Acute Assessment and Plan: POD #2: LEFT HIP HEMIARTHROPLASTY WITH BIPOLAR PROSTHESIS Continue PT/OT. WBAT. Walker. HIGH FALL RISK. Continue pain control. Ice Hip. Protect skin. DVT prophylaxis with Aspirin. SCDs. Incentive Spirometry Use reviewed. Monitor Dressing. Change prior to discharge. Bowel Regimen. KUB to be obtained prior to d/c Dispo: [facility] DS: Summary Hospital Course Reason for hospitalization: Left ARMEN Hospital Course: 88 year old male admitted s/p Left ARMEN for postoperative medical management, pain control and mobilization with PT/OT. Patient progressed well with PT/OT. Pain and vitals remained stable throughout. The patient has been cleared to be discharged to [facility] at this time. All discharge care instructions reviewed at depth. New medications reviewed. Follow up planned for 3 weeks in the outpatient orthopedic clinic with Dr. Martinez. Dr. Martinez in agreement with safe discharge at this time. Status at Discharge Functional status at discharge: uses cane/walker Overall status at discharge: patient is progressing back to baseline Time Spent with Patient Time attestation: Total time spent providing and/or coordinating discharge services: Exam Const: General: comfortable and no acute distress Orientation/consciousness: patient oriented x3 Limitations: no limitations Resp: Effort & Inspection: normal respiratory effort Cardio: Rate: regular rate Rhythm: regular rhythm GI: Inspection: non-distended Skin: General skin exam: normal color and wounds noted (incision left hip C/D/I ) Wounds: wounds noted (incision left hip C/D/I ) Neuro: General: patient oriented x3 Extrem: Left lower extremity: hip/thigh Details: tenderness Location: of the hip Location: laterally and anteriorly, swelling (thigh soft ) Location: of the hip (lateral. ), abnormal ROM (limitations with internal/external rotation and flexion/extension due to recent surgical intervention ) and other (incision lateral hip c/d/i. ), knee Details: normal to inspection and normal ROM; no tenderness and no swelling, lower leg (Negative Shane's Sign ) Details: no edema, ankle (+ankle dorsiflexion/plantarflexion ) Details: normal to inspection, no edema and normal ROM; no tenderness, no swelling and no warmth and foot Details: normal capillary refill, toes with normal ROM, vascular exam Details: dorsalis pedis pulse present and motor-sensory exam light-touch normal in all toes; no tenderness, no ecchymosis and no crepitus Psych: Mental Status: mental status grossly normal Affect: normal affect Discharge Plan Discharge Attending physician on discharge: Alberto Martinez Discharging Clinician: Rachel Gutierrez Patient Disposition: Home Health Service Activity: may shower, no driving and follow weight bearing status Diet: as tolerated Wound Care Instructions: follow printed instructions Discharge Instructions: Post Op Total Hip Replacement Instructions Dr. Alberto Martinez [phone] Your dressing will be changed prior to your discharge. You will be sent home with one additional dressing to be changed on post op day 7 by the home health RN. You may remove the dressing on post op day 14. Your incision was closed with dermabond, allow the dermabond to fall off naturally once your dressing is removed. Do not pull at the dermabond or disrupt incision healing. You may shower with your dressing but do not submerge in a bath tub. Do not drive or operate machinery until you are released by Dr. Martinez. Do not walk without a walker for any reason until you are released by Dr. Martinez
[2023-11-14] MEDS: ACETAMINOPHEN 500 MG TABLET PO (13:49)
[2023-11-14 14:00] VITALS: BP 141/58; PULSE 83; RESP 16; TEMP 36.3; O2SAT 100
== END 2023-11-14 19:40 | DRG 470 ==
LOC: ANH3MEDSUR 16:08
PROVIDERS: Admitting Provider Orthopaedic Surgery; PCP Family Medicine; Visit Provider Orthopaedic Surgery
PROC: 0SRS01A Replacement of Left Hip Joint, Femoral Surface with Metal Synthetic Substitute, Uncemented, Open Approach (ICD-10-PCS; CPT 27125; principal; 2023-11-12 07:30)
DX: M16.12 Unilateral primary osteoarthritis, left hip (principal); Z96.641 Presence of right artificial hip joint; E78.5 Hyperlipidemia, unspecified; G47.33 Obstructive sleep apnea (adult) (pediatric); H54.7 Unspecified visual loss; I25.2 Old myocardial infarction; I25.10 Atherosclerotic heart disease of native coronary artery without angina pectoris; I10 Essential (primary) hypertension; M88.851 Osteitis deformans of right thigh; M47.26 Other spondylosis with radiculopathy, lumbar region; Z85.46 Personal history of malignant neoplasm of prostate; Z79.82 Long term (current) use of aspirin
CPT/HCPCS: 36415; 73501; 74018; 80048; 85025; 97110; 97116; 97161; 97165; 97530; 97535; A9270; C1713; C1776; J0171; J0690; J1100; J1885; J2270; J2405; J2704; J2795; J3010; J7120